=== PATIENT | male | born 1955 | race Caucasian/White ===

== ENCOUNTER 2019-10-28 00:51 | Day surgery (SDC) | payer BC, SELFPAY ==
[2019-10-23 13:28] VITALS: BMI 25.0
--- NOTE | 2019-10-28 10:42 | WPDANESEPPF ---
Anes - Initial Pre Proc Eval Procedure: Operation Date: 10/28/19 12:00 Proposed Procedures p Colonoscopy - Edenilson Abbott MD Date/Time: 10/28/19 10:42 Surgeon: Edenilson Abbott MD Pre Op Diagnosis: Incontinence Patient Data Age: 64 Gender: M Height: 5 ft 10 in Weight: 79 kg Allergies Allergy/AdvReac Type Severity Reaction Status Date / Time No Known Allergies Allergy Mild Verified 10/23/19 13:25 Home Medications Medication Instructions Recorded Confirmed Type omeprazole 20 mg capsule,delayed 20 mg PO DAILY #90 cap 09/09/19 10/23/19 Rx release hydrochlorothiazide 12.5 mg PO QAM 10/23/19 10/23/19 History quinapril 20 mg PO QAM 10/23/19 10/23/19 History sertraline [Zoloft] 50 mg PO QAM 10/23/19 10/23/19 History simvastatin 20 mg PO QAM 10/23/19 10/23/19 History solifenacin [Vesicare] 5 mg PO QAM 10/23/19 10/23/19 History Patient hx anesthesia problems: none Family hx anesthesia problems: none PMFSH Family History Family History Mother Family history of osteoarthritis Family history of alcoholism Dementia Father Family history of alcoholism Social History Social History Smoking packs per day: 1 Smoking cigarettes per day: 20.0 Smoking status: Current every day smoker Second hand tobacco smoke exposure: Yes Alcohol intake: current Substance use type: marijuana Anes - Eval Final PreProcedure Day of Procedure 10/28/19 10:42 Patient weight: normal Heart: regular rate and rhythm Lungs: decreased breath sounds Airway: Mallampati scale class II Neurological: alert and oriented Last oral intake: >/= 8 hours ASA classification: III Emergent: no Anesthetic plan: proceed Anesthesia type and monitoring: general GIVS and standard monitoring Informed Consent: The patient's anesthetic plan and its attendant risks and benefits were discussed with the patient/family/POA. Questions were solicited and answers provided to the satisfaction of the patient/family/POA.
[2019-10-28 10:51] VITALS: BP 131/87; PULSE 74; RESP 18; TEMP 36.6; O2SAT 99
[2019-10-28] MEDS: LACTATED RINGERS 1,000 ML 150 ML IV CONT (10:55)
--- NOTE | 2019-10-28 11:46 | PM.HPGS ---
History of Present Illness History of Present Illness Consent: Risks, benefits, and alternatives have been discussed and questions answered. Patient agrees to proceed with procedure. Chief complaint: Incontinence Narrative: Tommy Zhao is a 64 year old male With a change in bowel habits. He has been experiencing incontinence with seepage of stool. His bowel movements are regular. Usually only 1 per day. He drinks several cups of PMFSH Family History Family History Mother Family history of osteoarthritis Family history of alcoholism Dementia Father Family history of alcoholism Social History Social History Smoking packs per day: 1 Smoking cigarettes per day: 20.0 Smoking status: Current every day smoker Second hand tobacco smoke exposure: Yes Alcohol intake: current Substance use type: marijuana Meds Home Medications and Allergies Home Medications Medication Instructions Recorded Confirmed Type omeprazole 20 mg capsule,delayed 20 mg PO DAILY #90 cap 09/09/19 10/28/19 Rx release hydrochlorothiazide 12.5 mg PO QAM 10/23/19 10/28/19 History quinapril 20 mg PO QAM 10/23/19 10/28/19 History sertraline [Zoloft] 50 mg PO QAM 10/23/19 10/28/19 History simvastatin 20 mg PO QAM 10/23/19 10/28/19 History solifenacin [Vesicare] 5 mg PO QAM 10/23/19 10/28/19 History Allergies Allergy/AdvReac Type Severity Reaction Status Date / Time No Known Allergies Allergy Mild Verified 10/28/19 10:49 Vital Signs Vital Signs - 24 hr 10/28/19 10:51 Temperature 36.6 C Pulse Rate 74 Respiratory Rate 18 Blood Pressure 131/87 Pulse Oximetry 99 Exam Resp: Auscultation: clear to auscultation bilaterally Cardio: Rate: regular rate Rhythm: regular rhythm GI: GI Palp: Yes Soft to palpation and No Tenderness to palpation present (GI) Assessment and Plan Assessment and plan (1) Change in bowel habits: Code(s): R19.4 - Change in bowel habit Status: Acute Assessment and Plan: Colonoscopy with possible biopsy or polypectomy or cautery or injection of substances.
[2019-10-28] MEDS: SIMETHICONE ORAL SUSPENSION 20 MG/0.3 ML 30 ML BOTTLE 0.6 ML IRRIGATION (12:21)
[2019-10-28 12:25] VITALS: BP 133/89; PULSE 91; RESP 15; O2SAT 96
[2019-10-28 12:35] VITALS: BP 110/79; PULSE 86; RESP 20; O2SAT 92
[2019-10-28 12:45] VITALS: BP 151/92; PULSE 65; RESP 16; O2SAT 98
== END 2019-10-28 13:10 | disposition home or self-care (01) ==
PROVIDERS: PCP Physician Assistant; Visit Provider Internal Medicine Gastroenterology
PROC: 0DJD8ZZ Inspection of Lower Intestinal Tract, Via Natural or Artificial Opening Endoscopic (ICD-10-PCS; CPT 45378; principal; 2019-10-28 12:00)
DX: R19.4 Change in bowel habit (principal); K63.5 Polyp of colon; K64.8 Other hemorrhoids; F17.210 Nicotine dependence, cigarettes, uncomplicated; F12.90 Cannabis use, unspecified, uncomplicated
CPT/HCPCS: 45380; 88305; J2704; J7120

== ENCOUNTER 2022-01-19 17:50 | Emergency (ER) | payer OTHER, SELFPAY ==
[2022-01-19] VITALS (13 sets, daily range): BP systolic 120–147; BP diastolic 78–87; PULSE 66–82; RESP 15–23; TEMP 36.6; O2SAT 95–100
--- NOTE | ~2022-01-19 | XR_ITS ---
XR chest 2V DATE: 01/19/2022 18:13 INDICATION: Chest pain TECHNIQUE: PA and lateral views COMPARISON: 11/29/2011 PA and lateral chest FINDINGS: Normal heart size. No hilar or mediastinal enlargement. Minimal atelectasis at the lung bas es. No pulmonary infiltrate or consolidation, pleural effusion or pulmonary vascular congestion or pn eumothorax is noted otherwise. IMPRESSION: Minimal atelectasis at lung bases Reviewed, dictated and finalized at location A.
--- NOTE | 2022-01-19 17:51 | ECG_ITS ---
Measurements Intervals Leivasy Rate: 84 P: 74 MD: 182 QRS: -16 QRSD: 83 T: 44 QT: 349 QTc: 413 Interpretive Statements SINUS RHYTHM NONSPECIFIC T-WAVE ABNORMALITY NO PREVIOUS ECG AVAILABLE FOR COMPARISON Electronically Signed On 01-19-2022 20:41:09 CDT by Beti Kim M.D.
[2022-01-19 18:12] LABS: Basophils Absolute Auto 0.1 K/mm3 (0.0-0.1); Basophils Percent Auto 0.5 % (0.2-1.2); Eosinophils Absolute Auto 0.2 K/mm3 (0-0.3); Eosinophils Percent Auto 1.3 % (0-4.4); Hematocrit 42.8 % (42.0-52.0); Hemoglobin 15.2 g/dL (14.0-18.0); Immature Granulocyte Absolute 0.06 K/mm3 (0.00-0.031); Immature Granulocyte Percent A 0.5 % (0-0.5); Lymphocytes Absolute Auto 3.71 K/mm3 (0.9-3.2); Lymphocytes Percent Auto 29.6 % (18.3-44.2); Mean Corpuscular HGB Conc 35.5 g/dl (32-36); Mean Corpuscular Hemoglobin 33.7 pg (26-34); Mean Corpuscular Volume 94.9 fl (80-100); Mean Platelet Volume 8.6 fl (7.4-10.4); Monocytes Percent Auto 8.3 % (2.6-8.5); Neutrophils Absolute Auto 7.5 K/mm3 (1.3-6.7); Neutrophils Percent Auto 59.8 % (45.5-73.1); Platelet Count Result 274 k/mm3 (150-375); Red Blood Count 4.51 M/mm3 (4.6-6.20); Red Cell Distribution Width 13.1 % (11.5-14.5); White Blood Count 12.5 K/mm3 (4.5-10.0)
[2022-01-19 18:23] LABS: Alanine Aminotransferase 24 U/L (6-50); Albumin Level 4.4 g/dL (3.5-5.1); Alkaline Phosphatase 87 U/L (38-126); Anion Gap 7 mmol/L (8-16); Aspartate Amino Transferase 29 U/L (17-59); Bilirubin,Total 0.9 mg/dL (0.2-1.3); Blood Urea Nitrogen 20 mg/dL (9-20); Calcium 9.3 mg/dL (8.4-10.2); Carbon Dioxide 25 mmol/L (22-30); Chloride 104 mmol/L (98-107); Estimated CRCL calculation 66 ml/min; Estimated Glomerular Filt Rate > 60; Glucose 99 mg/dL (65-110); Lipase 224 U/L (23-300); Potassium 3.3 mmol/L (3.4-5.0); Sodium 136 mmol/L (137-145)
[2022-01-19 18:27] LABS: INR 1.1; Prothrombin Time 13.7 Seconds (11.1-14.7)
[2022-01-19 18:28] LABS: Partial Thromboplastin Time 34.1 SECONDS (22.3-36.8)
[2022-01-19 18:34] LABS: Troponin I < 0.012 ng/mL (0.000-0.034)
--- NOTE | 2022-01-19 20:10 | ED.CHESTPAIN ---
HPI - Chest Pain General Chief Complaint: Chest Pain Stated Complaint: chest pain since sunday Time Seen by Provider: 01/19/22 20:01 Source: patient History of Present Illness HPI narrative: Patient presents with chest pain. Patient notes that symptoms for approximately 1 week described as a pressure sensation on his chest worse with physical activity improves with rest. Today it was associated with dizziness while he was outside cutting the grass he was concerned so he came to the ER for evaluation. Does report shortness of breath with exertion. Denies any nausea or diaphoresis. Denies any fevers chills or coughing. Related Data Allergies Allergy/AdvReac Type Severity Reaction Status Date / Time No Known Allergies Allergy Mild Verified 01/19/22 19:59 Review of Systems Review of Systems: CONSTITUTIONAL: Denies fever, chills, or sweats. EYES: Denies visual changes, redness, or discharge. ENT: Denies rhinorrhea, congestion, sore throat, or otalgia. CARDIOVASCULAR: Reports chest pain RESPIRATORY: Reports shortness of breath GASTROINTESTINAL: Denies abdominal pain, nausea, vomiting, or diarrhea. GENITOURINARY: Denies dysuria or hematuria. SKIN: Denies rash or itching. MUSCULOSKELETAL: Denies back pain, joint pain, or myalgia. NEUROLOGIC: Denies headache, numbness, dizziness, or weakness. PSYCHIATRIC: Denies anxiety or depression. All systems reviewed & are unremarkable except as noted in HPI and below PMFSH Past Medical History Medical History (Updated 01/20/22 @ 00:00 by Patricia Reyes) Arthritis Hx of appendicitis Family History Family History Mother Family history of osteoarthritis Family history of alcoholism Dementia Father Family history of alcoholism Social History Social History Smoking packs per day: 1 Smoking cigarettes per day: 20.0 Smoking status: Current every day smoker Second hand tobacco smoke exposure: Yes Alcohol intake: former Substance use: former Substance use type: marijuana Exam Narrative: GENERAL: Well-appearing, well-nourished, and in no acute distress. HEAD: Normocephalic, atraumatic. EYES: PERRLA and EOMI. ENT: Nares clear, no rhinorrhea or epistaxis. Mucous membranes moist. NECK: Supple. No masses. No JVD CHEST: Clear to auscultation. No respiratory distress. No wheezes rales or rhonchi HEART: Regular rate and rhythm. No murmur heard. Normal peripheral pulses. ABDOMEN: Soft, nontender, nondistended, normal active bowel sounds. EXTREMITIES: Normal range of motion. No edema. SKIN: Warm, dry, no rash. NEURO: No focal deficits. Alert and oriented x3. PSYCH: Normal mood and affect. Course Reevaluation(s) Reevaluation #1: Patient reports complete resolution of his symptoms after a GI cocktail. Results reviewed with the patient discussed inpatient versus outpatient evaluation of his symptoms. Patient prefers to follow-up with a demand inspector as an outpatient. Given the duration of his symptoms negative troponin nuclear resolution of symptoms with his GI cocktail this is reasonable course of option. Patient encouraged to return to the ER if he changes mind regarding inpatient evaluation discuss his comorbidities and smoking increasing his risk for cardiac disease. Date: 01/19/22 Time: 21:22 Vital Signs Vital signs: Vital Signs Temperature 36.6 C 01/19/22 18:03 Pulse Rate 82 01/19/22 18:03 Respiratory Rate 16 01/19/22 18:03 Blood Pressure 140/87 01/19/22 18:03 Pulse Oximetry 100 01/19/22 18:03 Oxygen Delivery Room Air 01/19/22 18:03 Temperature 36.6 C 01/19/22 18:03 Pulse Rate 66 01/19/22 21:45 Respiratory Rate 23 H 01/19/22 21:45 Blood Pressure 125/86 01/19/22 21:45 Pulse Oximetry 97 01/19/22 21:45 Oxygen Delivery Room Air 01/19/22 18:03 MDM - Chest Pain MDM Narrative Medical decisi
[2022-01-19] MEDS: SODIUM CHLORIDE 0.9% IV 500 ML 999 ML IV CONT (21:20)
[2022-01-19] MEDS: LIDOCAINE HCL 2% VISC SOLN 15 ML UDC 20 ML PO (21:21)
[2022-01-19] MEDS: MAG HYDROX/AL HYDROX/SIMETH 30 ML UDC PO (21:21)
[2022-01-19 21:42] LABS: Troponin I < 0.012 ng/mL (0.000-0.034)
== END 2022-01-19 22:14 | disposition home or self-care (01) ==
PROVIDERS: Emergency Medicine; Emergency Provider Emergency Medicine; PCP Physician Assistant
DX: R07.9 Chest pain, unspecified (principal); F17.210 Nicotine dependence, cigarettes, uncomplicated
CPT/HCPCS: 36415; 71046; 80053; 83690; 84484; 85025; 85610; 85730; 93005; 99284; A9270; J7040

== ENCOUNTER 2022-07-13 09:38 | Outpatient (CLI) | payer MEDICARE, SELFPAY ==
--- NOTE | ~2022-07-13 | XR_ITS ---
XR chest 2V DATE: 07/13/2022 09:51 INDICATION: Cough since January TECHNIQUE: PA and lateral views COMPARISON: 01/19/2022 PA and lateral chest FINDINGS: Normal heart size. No hilar or mediastinal enlargement. Aortic arch calcification. No pulmonary infiltrate or consolidation, pleural effusion or pulmonary vascular congestion or pneumo thorax is detected. There is mild dextroscoliosis and mild degenerative spurring of the thoracic spine. There is osteopen ia. IMPRESSION: No active cardiopulmonary disease Reviewed, dictated and finalized at location B. 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
== END 2022-07-13 09:39 | disposition home or self-care (01) ==
PROVIDERS: PCP Physician Assistant; Visit Provider Physician Assistant
DX: R05.9 Cough, unspecified (principal)
CPT/HCPCS: 71046

== ENCOUNTER 2022-09-12 18:32 | Observation (INO) | payer MEDICARE, SELFPAY ==
--- NOTE | ~2022-09-12 | XR_ITS ---
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 RESULT: Lines, tubes, and devices: None. Lungs and pleura: Linear bibasilar scar/atelectasis. No focal consolidation, pneumothorax, or effusi on. Cardiomediastinal silhouette: Stable. Other: No acute osseous or upper abdominal finding. IMPRESSION: No acute cardiopulmonary process. Reviewed, dictated and finalized at location K. ING CONTRACTOR
--- NOTE | ~2022-09-12 | CT_ITS ---
EXAMINATION: CT abdomen pelvis w con DATE: 09/12/2022 21:01 INDICATION: Left sided abdominal pain TECHNIQUE: Computed tomography (CT) of the abdomen and pelvis was performed with 100 mL Omnipaque-350 intravenous contrast. Automated exposure control and iterative reconstruction technique were employe d. The dose-length product was 495.27 mGy-cm. COMPARISON: None. FINDINGS: Lower thorax: Coronary artery and aortic valve calcification. Bibasilar scar/atelectasis. Small hiata l hernia. Calcified granulomas. Liver: Multiple hepatic cysts. Biliary/Gallbladder: Gallbladder is normal. No bile duct dilation. Pancreas: Prominent mid and distal pancreatic duct. Inflammatory change and fluid surrounding the solano creatic body and tail. 7 mm hypodensity in the pancreatic body. Spleen: Normal. Adrenals:No mass. Kidneys: No mass, stone, or hydronephrosis. GI tract: No small or large bowel dilation. Normal appendix. Mesentery/Peritoneum: No ascites, mass, or free air. Retroperitoneum: No mass. Atherosclerotic abdominal aortic and/or arterial calcifications. Mild bilat eral common iliac aneurysms. Pelvis: Prostatomegaly, otherwise the pelvic organs are within normal limits. Soft Tissues: Uncomplicated fat-containing right inguinal hernia, soft tissues tissues and body wall otherwise unremarkable. Bones: No acute osseous finding. IMPRESSION: 1. Inflammatory change and edema at the pancreatic body/tail, concerning for pancreatitis. 2. 7 mm hypodense or hypoenhancing lesion in the pancreatic body which may represent edema or necrosi s related to pancreatitis, but a pancreatic mass is not excluded. Recommend MRI of the pancreas after the resolution of acute symptoms. Reviewed, dictated and finalized at location K. KBROKING DEALER IMPRESSION: 1. Inflammatory change and edema at the pancreatic body/tail, concerning for pa ncreatitis. 2. 7 mm hypodense or hypoenhancing lesion in the pancreatic body which may repr esent edema or necrosis related to pancreatitis, but a pancreatic mass is not e xcluded. Recommend MRI of the pancreas after the resolution of acute symptoms.
--- NOTE | ~2022-09-12 | MR_ITS ---
EXAMINATION: MR MRCP wo/w con/w 3D wo ind DATE: 09/13/2022 12:45 INDICATION: Pancreatic lesion. Abdominal pain. TECHNIQUE: Magnetic resonance imaging (MRI) of the abdomen was performed without and with 17 mL Multi Pete intravenous contrast. Sequences included coronal T2-weighted FS FSE, coronal T2-weighted FSE, a xial T1-weighted LAVA, coronal FS FIESTA, axial dual-echo T1-weighted SPGR, coronal lava-FLEX, sagitt al T2-weighted FSE, axial T2-weighted FSE, and axial DWI. Thick-slab T2-weighted FSE images were obta ined for magnetic resonance cholangiopancreatography (MRCP). Maximum intensity projection 3-D reconst ructions of the volumetric data were created by the technologist. Postcontrast sequences included cor onal LAVA-flex and time course of axial T1-weighted LAVA. COMPARISON: CT abdomen and pelvis 09/12/2022 FINDINGS: ABDOMEN MRI: There are cysts in the liver measuring up to 2.9 cm. The gallbladder and spleen are norm al. There is fat stranding adjacent to the tail of the pancreas with edema of the tail of the pancrea s, consistent with acute interstitial pancreatitis. There are multiple cystic lesions in the pancreas measuring up to 7 mm, likely acute peripancreatic fluid collections. The adrenal glands and kidneys are normal. There are no dilated loops of bowel. ABDOMEN MRCP: The common duct is normal and measures 2 mm. No choledocholithiasis. IMPRESSION: 1. Acute interstitial pancreatitis with small acute peripancreatic fluid collections. Reviewed, dictated and finalized at location A. TOR IN CHARGE IMPRESSION: 1. Acute interstitial pancreatitis with small acute peripancreatic fluid collec tions.
[2022-09-12 18:42] VITALS: BP 102/75; PULSE 95; RESP 16; TEMP 36.4; O2SAT 98
--- NOTE | 2022-09-12 20:10 | ECG_ITS ---
Measurements Intervals Stark Rate: 73 P: 70 IA: 201 QRS: 10 QRSD: 75 T: 24 QT: 362 QTc: 400 Interpretive Statements SINUS RHYTHM ATRIAL PREMATURE COMPLEX NONSPECIFIC T-WAVE ABNORMALITY- ANTERIOR LEADS BASELINE ARTIFACT- I, II, III, AVR, AVL, AVF, V1-V6 BORDERLINE ECG COMPARED TO ECG 01/19/2022 17:55:51 NO SIGNIFICANT CHANGES Electronically Signed On 09-12-2022 21:26:13 HANDS AND DIAL INSPECTOR by Kushal Puentes D.O.
[2022-09-12] MEDS: SODIUM CHLORIDE 0.9% IV 1,000 ML 999 ML IV CONT ×2 (20:17→20:33)
[2022-09-12 20:25] LABS: Basophils Absolute Auto 0.1 K/mm3 (0.0-0.1); Basophils Percent Auto 0.5 % (0.2-1.2); Eosinophils Absolute Auto 0.3 K/mm3 (0-0.3); Eosinophils Percent Auto 2.6 % (0-4.4); Hematocrit 44.6 % (42.0-52.0); Hemoglobin 15.6 g/dL (14.0-18.0); Immature Granulocyte Absolute 0.04 K/mm3 (0.00-0.031); Immature Granulocyte Percent A 0.3 % (0-0.5); Lymphocytes Absolute Auto 2.78 K/mm3 (0.9-3.2); Lymphocytes Percent Auto 22.5 % (18.3-44.2); Mean Corpuscular Hemoglobin 34.4 pg (26-34); Mean Corpuscular Volume 98.2 fl (80-100); Mean Platelet Volume 8.8 fl (7.4-10.4); Monocytes Percent Auto 8.2 % (2.6-8.5); Neutrophils Absolute Auto 8.1 K/mm3 (1.3-6.7); Neutrophils Percent Auto 65.9 % (45.5-73.1); Platelet Count Result 277 k/mm3 (150-375); Red Blood Count 4.54 M/mm3 (4.6-6.20); White Blood Count 12.3 K/mm3 (4.5-10.0)
[2022-09-12 20:33] LABS: Lactic Acid Reflex 1.3 mmol/L (0.7-2.0)
[2022-09-12] MEDS: ONDANSETRON INJ 4 MG/2 ML VIAL IV PUSH (20:34)
[2022-09-12] MEDS: MORPHINE SULFATE (*CRX) 4 MG/ML INJ IV PUSH ×2 (20:34→22:37)
--- NOTE | 2022-09-12 20:34 | ED.ABDPAIN ---
HPI - Abdominal Pain General Chief Complaint: Abdominal Pain Stated Complaint: abd pain Time Seen by Provider: 09/12/22 19:48 Source: patient Mode of arrival: ambulatory Limitations: no limitations History of Present Illness HPI narrative: The patient is a 67-year-old male with a history of hypertension, hyperlipidemia presenting to the emergency department for evaluation of abdominal pain. Patient reports abdominal pain worsening over the past 5 days. Described as constant in nature in the left upper quadrant, patient states that he can feel a hard mass in that area. Patient reports no radiation of the pain to the back and into the chest although he does report intermittent chest pain over the past several weeks for which he was previously seen in the emergency department and then referred to cardiology with ultimately a negative work-up. Patient denies fever, chills, nausea or vomiting. Initially he attributed the pain to constipation and took 2 stool softeners with improvement in the bowel movements and no dark or tarry stool. Patient denies any bright red blood per rectum. He denies any flank pain, dysuria or hematuria. Patient denies any radiation of the left upper quadrant pain into the shoulder, neck, jaw. No associated shortness of breath. Related Data Home Medications Medication Instructions Recorded Confirmed omega 5-bni-gwt-fish oil 100 cap PO 07/04/22 07/14/22 mg-160 mg-1,000 mg capsule (Fish Oil) Allergies Allergy/AdvReac Type Severity Reaction Status Date / Time No Known Allergies Allergy Mild Verified 09/12/22 15:29 Review of Systems Review of Systems: CONSTITUTIONAL: Denies fever, chills, or sweats. EYES: Denies visual changes, redness, or discharge. ENT: Denies rhinorrhea, congestion, sore throat, or otalgia. CARDIOVASCULAR: Reports intermittent chest pain over the past several weeks but denies current active chest pain RESPIRATORY: Denies cough or dyspnea. GASTROINTESTINAL: Reports left upper quadrant abdominal pain, denies nausea, vomiting or diarrhea, reports earlier constipation is now resolved GENITOURINARY: Denies dysuria or hematuria. SKIN: Denies rash or itching. MUSCULOSKELETAL: Denies back pain, joint pain, or myalgia. NEUROLOGIC: Denies headache, numbness, or weakness. [facility] Past Medical History Medical History Arthritis Hx of appendicitis Hyperlipidemia Hypertension Family History Family History Mother Family history of osteoarthritis Family history of alcoholism Dementia Father Family history of alcoholism Social History Social History Smoking packs per day: 1 Smoking cigarettes per day: 20.0 Smoking status: Current every day smoker Second hand tobacco smoke exposure: Yes Alcohol intake: former Substance use: former Substance use type: marijuana Lack of Transportation: No Lack of Food: Never True Current Housing: I Have Housing Concerned About Future Housing: No Difficulty Paying Gas/Electric Bills: No Difficulty Paying for Meds: No Currently Unemployed: No Education: High School Diploma/GED Difficulty w/ Childcare or Family Care: No Exam Narrative: GENERAL: Awake, alert, conversant HEAD: Normocephalic, atraumatic. EYES: PERRLA and EOMI. ENT: Nares clear, no rhinorrhea or epistaxis. Mucous membranes moist. NECK: Supple. CHEST: No respiratory distress, breathing even and non labored HEART: Regular rate, sinus rhythm ABDOMEN:Non distended, mild epigastric tenderness, tender in the left upper quadrant, potential small hernia in that site versus lipoma, no guarding, rebound or rigidity. No flank tenderness bilaterally. No focal right upper quadrant tenderness, periumbilical pain, left lower or right lower quadrant tenderness EXTREMITIES: Normal range of motion
[2022-09-12 20:36] LABS: Alanine Aminotransferase 23 U/L (6-50); Albumin Level 4.4 g/dL (3.5-5.1); Alkaline Phosphatase 101 U/L (38-126); Anion Gap 7 mmol/L (8-16); Aspartate Amino Transferase 24 U/L (17-59); Bilirubin,Total 0.8 mg/dL (0.2-1.3); Blood Urea Nitrogen 18 mg/dL (9-20); Calcium 9.3 mg/dL (8.4-10.2); Carbon Dioxide 24 mmol/L (22-30); Chloride 101 mmol/L (98-107); Estimated CRCL calculation 83 ml/min; Estimated Glomerular Filt Rate > 60; Glucose 142 mg/dL (65-110); Lipase 429 U/L (23-300); Potassium 3.2 mmol/L (3.4-5.0); Sodium 132 mmol/L (137-145)
[2022-09-12 20:43] VITALS: BP 101/71; PULSE 81; RESP 18; O2SAT 97
[2022-09-12 20:46] LABS: Troponin I < 0.012 ng/mL (0.000-0.034)
--- NOTE | 2022-09-12 21:39 | PM.IMHP ---
H&P: HPI History of Present Illness Date/Time: 09/12/22 21:39 Chief Complaint: Abdominal pain Narrative: This is a 67-year-old male with past medical history significant for hypertension, GERD, dyslipidemia, benign prostatic hyperplasia, tobacco dependence. Patient presents to the emergency room due to abdominal pain for the last 5 days or so it is constant it is nagging it is achy nonradiating it is localized to the epigastric area denies any nausea, vomiting, chills, fevers, no weight loss, patient denies use of alcohol, no hematemesis, no bright red blood per rectum, no melena. His usually able to tolerate all his meals without any problems. Preliminary workup was significant for CT of abdomen and pelvis was reported as: IMPRESSION: 1. Inflammatory change and edema at the pancreatic body/tail, concerning for pancreatitis. 2. 7 mm hypodense or hypoenhancing lesion in the pancreatic body which may represent edema or necrosis related to pancreatitis, but a pancreatic mass is not excluded. Recommend MRI of the pancreas after the resolution of acute symptoms. Review of Systems Review of Systems: Epigastric abdominal pain Constitutional: Constitutional: Denies chills, Denies fatigue, Denies fever(s), Denies lethargy, Denies malaise, Denies night sweats, Denies poor appetite, Denies weakness and Denies weight loss Eyes: Eyes: Denies change in vision ENT: Denies dysphagia and Denies odynophagia Cardiovascular: Cardiovascular: Denies chest pain, Denies lightheadedness, Denies palpitations, Denies dyspnea on exertion and Denies orthopnea Respiratory: Respiratory: Denies chest congestion, Denies cough, Denies excessive phlegm production, Denies pain on inspiration and Denies dyspnea on exertion Gastrointestinal: Gastrointestinal: Reports abdominal pain, Denies melena, Denies hematochezia, Denies coffee ground emesis, Denies dyspepsia, Denies heartburn, Denies diarrhea, Denies nausea and Denies vomiting Genitourinary: Genitourinary: Denies dysuria Musculoskeletal: Musculoskeletal: Denies myalgias, Denies joint swelling and Denies limited range of motion Integumentary/Breasts: Skin/Breast: Denies rash Neurologic: Denies vertigo, Denies dizziness, Denies focal weakness and Denies Sensory deficit (Neuro) Psychiatric: Psychiatric: Reports no additional psychiatric complaints and Reports as per HPI Endocrine: Endocrine: Denies cold intolerance, Denies flushing, Denies heat intolerance, Denies polyphagia, Denies polydipsia and Denies palpitations Hematologic/Lymphatic: Hematologic/Lymphatic: Reports no additional hematologic/lymphatic complaints and Reports as per HPI Allergic/Immunologic: Allergic/Immunologic: Reports no additional allergic/immunologic complaints and Reports as per HPI PMFSH Past Medical History Medical History Arthritis Hx of appendicitis Hyperlipidemia Hypertension Family History Family History Mother Family history of osteoarthritis Family history of alcoholism Dementia Father Family history of alcoholism Social History Social History Smoking packs per day: 1 Smoking cigarettes per day: 20.0 Years smoked: 40 Smoking pack-years: 40.00 Smoking status: Current every day smoker Tobacco type: cigarettes Second hand tobacco smoke exposure: Yes Alcohol intake: never Substance use: current Substance use type: marijuana Lack of Transportation: No Lack of Food: Never True Current Housing: I Have Housing Concerned About Future Housing: No Difficulty Paying Gas/Electric Bills: No Difficulty Paying for Meds: No Currently Unemployed: No Education: Associate Degree Difficulty w/ Childcare or Family Care: No Spiritual care concerns: No Meds Home Medications and Allergies Home Medications Medi
[2022-09-12] MEDS: POTASSIUM CHLORIDE 20 MEQ PACKET (FOR LIQUID) PO (22:37)
[2022-09-12 23:19] LABS: Influenza A QL RT-PCR Negative (Negative); Influenza B QL RT-PCR Negative (Negative); RSV RNA, RT-PCR Negative (Negative); SARS-CoV-2 RNA PCR Negative
[2022-09-12 23:56] VITALS: BP 128/76; PULSE 56; RESP 16; TEMP 36.5; O2SAT 98
[2022-09-13] MEDS: SODIUM CHLORIDE 0.9% IV 1,000 ML 125 ML IV CONT ×2 (00:13→08:30)
[2022-09-13] MEDS: MORPHINE SULFATE (*CRX) 4 MG/ML INJ IV PUSH ×6 (00:36→22:22)
[2022-09-13 05:40] VITALS: BP 97/56; PULSE 67; RESP 16; TEMP 36.3; O2SAT 94
[2022-09-13 06:09] LABS: Basophils Absolute Auto 0.1 K/mm3 (0.0-0.1); Basophils Percent Auto 0.5 % (0.2-1.2); Eosinophils Absolute Auto 0.4 K/mm3 (0-0.3); Eosinophils Percent Auto 3.8 % (0-4.4); Hematocrit 36.9 % (42.0-52.0); Hemoglobin 12.6 g/dL (14.0-18.0); Immature Granulocyte Absolute 0.03 K/mm3 (0.00-0.031); Immature Granulocyte Percent A 0.3 % (0-0.5); Lymphocytes Absolute Auto 3.25 K/mm3 (0.9-3.2); Lymphocytes Percent Auto 35.7 % (18.3-44.2); Mean Corpuscular HGB Conc 34.1 g/dl (32-36); Mean Corpuscular Hemoglobin 33.7 pg (26-34); Mean Corpuscular Volume 98.7 fl (80-100); Mean Platelet Volume 9.1 fl (7.4-10.4); Monocytes Absolute Auto 1.1 K/mm3 (0.1-0.6); Monocytes Percent Auto 11.9 % (2.6-8.5); Neutrophils Absolute Auto 4.3 K/mm3 (1.3-6.7); Neutrophils Percent Auto 47.8 % (45.5-73.1); Platelet Count Result 254 k/mm3 (150-375); Red Blood Count 3.74 M/mm3 (4.6-6.20); White Blood Count 9.1 K/mm3 (4.5-10.0)
[2022-09-13 06:24] LABS: Alanine Aminotransferase 17 U/L (6-50); Albumin Level 3.2 g/dL (3.5-5.1); Alkaline Phosphatase 76 U/L (38-126); Anion Gap 1 mmol/L (8-16); Aspartate Amino Transferase 17 U/L (17-59); Bilirubin,Total 0.6 mg/dL (0.2-1.3); Blood Urea Nitrogen 13 mg/dL (9-20); Calcium 7.8 mg/dL (8.4-10.2); Carbon Dioxide 26 mmol/L (22-30); Chloride 107 mmol/L (98-107); Estimated CRCL calculation 94 ml/min; Estimated Glomerular Filt Rate > 60; Glucose 97 mg/dL (65-110); Lipase 754 U/L (23-300); Potassium 3.5 mmol/L (3.4-5.0); Sodium 134 mmol/L (137-145)
[2022-09-13] MEDS: FAMOTIDINE 20 MG/2 ML VIAL IV PUSH ×2 (10:25→19:38)
--- NOTE | 2022-09-13 13:41 | WPDGICN ---
Assessment and Plan Assessment and plan (1) Acute pancreatitis: Code(s): K85.90 - Acute pancreatitis without necrosis or infection, unspecified Status: Acute Assessment and Plan: denies alcohol, GB was normal noted lesion in pancreas and mri is pending, based on finding may need referral for EUS pancreas (2) Abdominal pain: Code(s): R10.9 - Unspecified abdominal pain Status: Acute Assessment and Plan: still with pain normal lft pain management (3) Mass of pancreas: Code(s): K86.89 - Other specified diseases of pancreas Status: Acute Assessment and Plan: incidental finding, pending mrcp (4) Hypertension: Qualifiers: Hypertension type: essential hypertension Qualified Code(s): I10 - Essential (primary) hypertension Code(s): I10 - Essential (primary) hypertension Status: Acute GI Consult Note Consult date/time: 09/13/22 13:41 Reason for consult: pancreatitis HPI: Tommy Zhao is a 67 year old male with history significant for hypertension, GERD, dyslipidemia, benign prostatic hyperplasia, tobacco dependence who has been having intermittent chest pain since January, actually he was evaluated by PCP and cardiology. He came here with 5 days of worsening upper abdominal pain with radiation to chest mostly in epigastric, denies nausea, vomiting, chills, fevers, no weight loss. He does not use alcohol. Because pain got severe he came to ER. CT scan showed?Inflammatory change and edema at the pancreatic body/tail, concerning for pancreatitis.. 7 mm hypodense or hypoenhancing lesion in the pancreatic body which may represent edema or necrosis related to pancreatitis, but a pancreatic mass is not excluded. Recommend MRI of the pancreas after the resolution of acute symptoms, GB was normal.. He had normal liver enzymes, lipase 400's. Denies previous pancreatitis, Review of Systems Constitutional: Constitutional: Denies headache(s) and Denies weakness Eyes: Eyes: Denies blurry vision ENT: Reports Normal hearing present, Denies headache(s) and Denies neck pain Cardiovascular: Cardiovascular: Reports chest pain and Denies dyspnea Respiratory: Respiratory: Denies dyspnea Gastrointestinal: Gastrointestinal: Reports abdominal pain Genitourinary: Genitourinary: Denies dysuria Musculoskeletal: Musculoskeletal: Denies neck pain Integumentary/Breasts: Skin/Breast: Denies dry skin Neurologic: Reports Normal hearing present, Denies headache(s) and Denies weakness Psychiatric: Psychiatric: Denies anxiety Endocrine: Endocrine: Denies change in body appearance Hematologic/Lymphatic: Hematologic/Lymphatic: Denies easy bleeding Allergic/Immunologic: Allergic/Immunologic: Denies urticaria PMFSH Past Medical History Medical History (Updated 09/13/22 @ 13:45 by Margarito Sharpe MD) Arthritis Hx of appendicitis Hyperlipidemia Hypertension Family History Family History Mother Family history of osteoarthritis Family history of alcoholism Dementia Father Family history of alcoholism Social History Social History Smoking packs per day: 1 Smoking cigarettes per day: 20.0 Years smoked: 40 Smoking pack-years: 40.00 Smoking status: Current every day smoker Tobacco type: cigarettes Second hand tobacco smoke exposure: Yes Alcohol intake: never Substance use: current Substance use type: marijuana Lack of Transportation: No Lack of Food: Never True Current Housing: I Have Housing Concerned About Future Housing: No Difficulty Paying Gas/Electric Bills: No Difficulty Paying for Meds: No Currently Unemployed: No Education: Associate Degree Difficulty w/ Childcare or Family Care: No Spiritual care concerns: No Meds Home Medications and Allergies Home Medications Medica
--- NOTE | 2022-09-13 13:43 | PM.IMPN ---
Progress Note: A&P Assessment and Plan (1) Acute pancreatitis: Code(s): K85.90 - Acute pancreatitis without necrosis or infection, unspecified Status: Acute Assessment and Plan: Patient presented with epigastric pain. Lipase on presentation 429. CT of the abdomen/pelvis revealed inflammatory change and edema of the pancreatic body/ tail consistent with pancreatitis. MRCP completed this afternoon, awaiting results appreciate GI consultation continue with NPO diet IV fluid rehydration analgesics antiemetics as needed lipase 754 today (2) Mass of pancreas: Code(s): K86.89 - Other specified diseases of pancreas Status: Acute Assessment and Plan: CT of the abdomen/ pelvis on presentation revealed 7 mm hypodense or hypoenhancing lesion of the pancreatic body which may represent edema or necrosis from pancreatitis, however pancreatic mass not excluded MRCP pending appreciate GI recommendations (3) Tobacco use: Code(s): Z72.0 - Tobacco use Status: Acute Assessment and Plan: Patient smokes 1 pack per day nicotine patch available during admission if needed continue to reinforce smoking cessation (4) Atypical chest pain: Code(s): R07.89 - Other chest pain Status: Acute Assessment and Plan: patient with complaints of pleuritic chest pain ongoing for over 6 months patient follows with Cardiology. Lexiscan stress test recommended but was not completed. no acute issues/ changes. 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 he endorses left epigastric pain today. Describes the pain as aching and worsened with deep inspiration. He has been NPO today. He denies nausea, vomiting, fever, or chills. Reports having a watery stool yesterday, however states this occurred after taking 3 Dulcolax tabs. He denies any urinary symptoms. He does endorse pleuritic chest discomfort which has been an ongoing issue since February. States he was evaluated by Cardiology for this and was cleared of any cardiac concerns. He does endorse dizziness upon standing occasionally. Review of Systems Review of Systems: All systems reviewed & are unremarkable except as noted in HPI and below Exam Narrative: General: well-nourished, well-appearing 67-year-old male, sitting up in bed, comfortable, NARD Neuro: awake, alert and oriented x4, speech clear, no focal neuro deficits noted HEENMT: normocephalic, atraumatic, EOMI, sclerae anicteric Respiratory: clear to auscultation bilaterally, nonlabored breathing Cardio: regular rate, regular rhythm with S1-S2 Abdomen: nondistended, normoactive bowel sounds, soft, tender to palpation epigastric region Extremities: no edema, erythema, or tenderness to palpation, DP pulses 2+ bilaterally Skin: no rashes or lesions, warm and dry Psych: appropriate mood and affect, judgment and insight intact Objective Data Vital Signs Vital Signs: Vital Signs - 24 hr 09/12/22 18:42 09/12/22 20:43 09/12/22 23:56 Temperature 97.6 F 97.7 F Pulse Rate 95 81 56 L Respiratory Rate 16 18 16 Blood Pressure 102/75 101/71 128/76 Pulse Oximetry 98 97 98 Oxygen Delivery 09/13/22 00:07 09/13/22 05:40 09/13/22 08:30 Temperature 97.3 F L Pulse Rate 67 Respiratory Rate 16 Blood Pressure 97/56 L Pulse Oximetry 94 Oxygen Delivery Room Air Room Air Intake/Output Intake/Output: Intake & Output 09/10/22 09/11/22 09/12/22 09/13/22 23:59 23:59 23:59 23:59 Intake Total 1999 1000 Balance 1999 1000 Meds/Results Medications: Active Medi
[2022-09-13 14:00] VITALS: BP 115/71; PULSE 16; RESP 16; TEMP 36.3; O2SAT 98
[2022-09-13] MEDS: SODIUM CHLORIDE 0.9% IV 1,000 ML 100 ML IV CONT (19:38)
[2022-09-13 21:48] VITALS: BP 119/60; PULSE 74; RESP 16; TEMP 36.9; O2SAT 94
[2022-09-14] MEDS: MORPHINE SULFATE (*CRX) 4 MG/ML INJ IV PUSH ×2 (01:46→08:02)
[2022-09-14 05:37] VITALS: BP 138/79; PULSE 65; RESP 16; TEMP 36.2; O2SAT 96
[2022-09-14] MEDS: SODIUM CHLORIDE 0.9% IV 1,000 ML 100 ML IV CONT ×2 (05:43→14:01)
[2022-09-14] MEDS: ONDANSETRON INJ 4 MG/2 ML VIAL IV PUSH (05:43)
[2022-09-14 06:14] LABS: Hematocrit 39.7 % (42.0-52.0); Hemoglobin 13.3 g/dL (14.0-18.0); Mean Corpuscular HGB Conc 33.5 g/dl (32-36); Mean Corpuscular Hemoglobin 33.4 pg (26-34); Mean Corpuscular Volume 99.7 fl (80-100); Mean Platelet Volume 9.3 fl (7.4-10.4); Platelet Count Result 271 k/mm3 (150-375); Red Blood Count 3.98 M/mm3 (4.6-6.20); Red Cell Distribution Width 12.7 % (11.5-14.5); White Blood Count 10.5 K/mm3 (4.5-10.0)
[2022-09-14 06:58] LABS: Alanine Aminotransferase 17 U/L (6-50); Albumin Level 3.3 g/dL (3.5-5.1); Alkaline Phosphatase 90 U/L (38-126); Anion Gap 7 mmol/L (8-16); Aspartate Amino Transferase 21 U/L (17-59); Bilirubin,Total 0.8 mg/dL (0.2-1.3); Blood Urea Nitrogen 12 mg/dL (9-20); Calcium 8.4 mg/dL (8.4-10.2); Carbon Dioxide 22 mmol/L (22-30); Chloride 109 mmol/L (98-107); Estimated CRCL calculation 94 ml/min; Estimated Glomerular Filt Rate > 60; Glucose 51 mg/dL (65-110); Lipase 172 U/L (23-300); Potassium 3.6 mmol/L (3.4-5.0); Sodium 138 mmol/L (137-145)
[2022-09-14 08:00] LABS: Glucose Point of Care 51 mg/dl (65-105)
[2022-09-14] MEDS: DEXTROSE 50% 25 GM/50 ML SYRINGE IV PUSH (08:01)
[2022-09-14] MEDS: SERTRALINE HCL 50 MG TABLET PO (08:05)
[2022-09-14] MEDS: FAMOTIDINE 20 MG/2 ML VIAL IV PUSH (08:05)
[2022-09-14] MEDS: TAMSULOSIN HCL 0.4 MG CAPSULE PO (08:06)
[2022-09-14] MEDS: PANTOPRAZOLE 40 MG TABLET PO (08:06)
[2022-09-14] MEDS: SIMVASTATIN 20 MG TABLET PO (08:06)
[2022-09-14] MEDS: OMEGA 3 POLYUNSAT FATTY ACIDS 1 GM CAP PO (08:06)
[2022-09-14] MEDS: lisinopriL 20 MG TABLET 40 MG PO (08:06)
[2022-09-14] MEDS: hydroCHLOROthiazide 25 MG TABLET PO (08:17)
[2022-09-14 08:33] LABS: Glucose Point of Care 117 mg/dl (65-105)
[2022-09-14 12:17] LABS: Glucose Point of Care 97 mg/dl (65-105)
--- NOTE | 2022-09-14 13:30 | PM.IMPN ---
Progress Note: A&P Assessment and Plan (1) Acute pancreatitis: Code(s): K85.90 - Acute pancreatitis without necrosis or infection, unspecified Status: Acute Assessment and Plan: Patient presented with epigastric pain. Lipase on presentation 429. CT of the abdomen/pelvis revealed inflammatory change and edema of the pancreatic body/ tail consistent with pancreatitis. Etiology unclear. Patient denies alcohol use. Gallbladder normal with no evidence of biliary duct dilation. May be related to medications vs idiopathic MRCP revealed acute interstitial pancreatitis with small acute peripancreatic fluid collection appreciate GI consultation advance to clear liquid diet continue with gentle IV fluids until better tolerating diet analgesics and antiemetics as needed lipase 172 today (2) Mass of pancreas: Code(s): K86.89 - Other specified diseases of pancreas Status: Acute Assessment and Plan: CT of the abdomen/ pelvis on presentation revealed 7 mm hypodense or hypoenhancing lesion of the pancreatic body which may represent edema or necrosis from pancreatitis, however pancreatic mass not excluded MRCP completed which revealed multiple cystic lesions of the pancreas measuring up to 7 mm, most likely acute peripancreatic fluid collection Appreciate GI recommendations (3) Tobacco use: Code(s): Z72.0 - Tobacco use Status: Acute Assessment and Plan: Patient smokes 1 pack per day nicotine patch available during admission if needed continue to reinforce smoking cessation (4) Atypical chest pain: Code(s): R07.89 - Other chest pain Status: Acute Assessment and Plan: patient with complaints of pleuritic chest pain ongoing for over 6 months patient follows with Cardiology. Lexiscan stress test recommended but was not completed. no acute issues/ changes. 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 patient was taken off amlodipine by his PCP 1 day prior to presentation given episodes of hypotension continue lisinopril-hydrochlorothiazide. Monitor BP trends closely Subjective Date/time seen: 09/14/22 13:30 Interval history: Date of service: 09/14/2022 Tommy Zhao is a 67-year-old male with a history of hyperlipidemia, hypertension, arthritis, and tobacco use who is seen in follow-up for pancreatitis. He is feeling better today. This morning he had more severe pain but this improved after pain medication. He was able to tolerate clear liquids for breakfast and felt that he did mostly well with this, however he did experience some abdominal fullness and gurgling intermittently since having the liquids. He has not had a bowel movement today. He denies nausea or vomiting. He denies fevers or chills. This morning his blood sugar was low and he did feel symptomatic with this, stating he felt a bit lightheaded. These symptoms have resolved. He has no additional concerns at this time Review of Systems Review of Systems: All systems reviewed & are unremarkable except as noted in HPI and below Exam Narrative: General: well-nourished, well-appearing 67-year-old male, sitting up in bed, comfortable, NARD Neuro: awake, alert and oriented x4, speech clear, no focal neuro deficits noted HEENMT: normocephalic, at
[2022-09-14 13:46] VITALS: BP 117/67; PULSE 69; RESP 17; TEMP 36.6; O2SAT 99
[2022-09-14] MEDS: HYDROcodone/acetaminophen (*CRX) 5-325 MG TABLET 1 TAB PO (14:01)
--- NOTE | 2022-09-14 14:23 | WPDGIPROGNO ---
Progress Note: A&P Assessment and Plan (1) Acute pancreatitis: Code(s): K85.90 - Acute pancreatitis without necrosis or infection, unspecified Status: Acute Assessment and Plan: mrcp reviewed, Acute interstitial pancreatitis with small acute peripancreatic fluid collections, no pancreatic lesion no clear etiology of pancreatitis, GB is normal advance diet, feeling better (2) Abdominal pain: Code(s): R10.9 - Unspecified abdominal pain Status: Acute Assessment and Plan: improving (3) Hypertension: Qualifiers: Hypertension type: essential hypertension Qualified Code(s): I10 - Essential (primary) hypertension Code(s): I10 - Essential (primary) hypertension Status: Chronic (4) Hypoglycemia: Code(s): E16.2 - Hypoglycemia, unspecified Status: Acute Subjective Date/time seen: 09/14/22 14:23 Interval history: less pain and tolerated liquid diet Review of Systems Review of Systems: All systems reviewed & are unremarkable except as noted in HPI and below Exam Const: General: comfortable and no acute distress HENMT: Face/Nose/Sinus: Normal nares present Eyes: General: appearance normal, both eyes and all related structures Neck: Neck: no JVD Resp: Auscultation: clear to auscultation bilaterally Cardio: Rate: regular rate Rhythm: regular rhythm GI: Inspection: non-distended GI Palp: Yes Soft to palpation and Yes Guarding due to palpation present (GI) Auscultation: normal bowel sounds Other: less tender Skin: General skin exam: normal color Neuro: General: gait normal Speech: normal speech Extrem: General: normal to inspection Psych: Mental Status: mental status grossly normal Objective Data Vital Signs Vital Signs: Vital Signs - 24 hr 09/13/22 21:48 09/13/22 20:00 09/14/22 05:37 Temperature 98.4 F 97.1 F L Pulse Rate 74 65 Respiratory Rate 16 16 Blood Pressure 119/60 138/79 Pulse Oximetry 94 96 Oxygen Delivery Room Air Intake/Output Intake/Output: Intake & Output 09/11/22 09/12/22 09/13/22 09/14/22 23:59 23:59 23:59 23:59 Intake Total 1999 1999 2509 Balance 1999 1999 2509 Meds/Results Medications: Active Medications Generic Name Dose Route Start Last Admin Trade Name Freq PRN Reason Stop Dose Admin Acetaminophen 650 mg 09/14/22 18:00 Acetaminophen 325 Mg Tablet PO Q6HR SHERYL Hydrocodone Bitart/Acetaminophen 1 tab 09/14/22 13:33 09/14/22 14:01 Hydrocodone/Acetaminophen (*Crx) 5-325 Mg Tablet PO 1 tab Q6H PRN Administration Pain Rated 4-6 Dextrose 12.5 gm 09/14/22 07:34 09/14/22 08:01 Dextrose 50% 25 Gm/50 Ml Syringe IV PUSH 12.5 gm PRN PRN Administration Hypoglycemia Protocol Enoxaparin Sodium 40 mg 09/13/22 09:00 09/14/22 08:17 Enoxaparin 40 Mg/0.4 Ml Syringe SUB-Q Not Given DAILY SHERYL Famotidine 20 mg 09/13/22 09:00 09/14/22 08:05 Famotidine 20 Mg/2 Ml Vial IV PUSH 20 mg Q12HR SHERYL Administration Fish Oil 1 gm 09/13/22 09:00 09/14/22 08:06 [place] 3 Polyunsat Fatty Acids 1 Gm Cap PO 1 gm QAM SHERYL Administration Glucagon 1 mg 09/14/22 07:34 Glucagon For Inj 1 Mg Vial IM PRN PRN Hypoglycemia Protocol Glucose 15 gm 09/14/22 07:34 Glucose Oral Gel 15 Gm Of Glucse In 37.5 Gm Tube PO PRN PRN Hypoglycemia Protocol Hydrochlorothiazide 25 mg 09/13/22 09:00 09/14/22 08:17 Hydrochlorothiazide 25 Mg Tablet PO 25 mg DAILY SHERYL Administration Sodium Chloride 1,000 mls @ 100 mls/hr 09/12/22 21:45 09/14/22 14:01 Normal Saline Iv IV CONT 100 mls/hr .Q10H SHERYL Administration Dextrose 1,000 mls @ 100 mls/hr 09/14/22 07:34 Dextrose 5% 1,000 Ml IVPB PRN PRN Hypoglycemia Protocol Lisinopril 40 mg 09/13/22 09:00 09/14/22 08:06 Lisinopril 20 Mg Tablet PO 10/13/22 08:59 40 mg DAILY SHERYL Administration Morphine Sulfate 4 mg 01
[2022-09-14] MEDS: ACETAMINOPHEN 325 MG TABLET 650 MG PO ×2 (17:28→23:42)
[2022-09-14 21:20] VITALS: BP 102/66; PULSE 58; RESP 14; TEMP 36.6; O2SAT 99
[2022-09-14] MEDS: FAMOTIDINE 20 MG TABLET PO (21:43)
[2022-09-15] MEDS: ACETAMINOPHEN 325 MG TABLET 650 MG PO ×2 (05:50→12:43)
[2022-09-15 05:59] VITALS: BP 129/78; PULSE 63; RESP 14; TEMP 36.4; O2SAT 97
[2022-09-15 06:00] LABS: Hematocrit 36.6 % (42.0-52.0); Hemoglobin 12.7 g/dL (14.0-18.0); Mean Corpuscular HGB Conc 34.7 g/dl (32-36); Mean Corpuscular Hemoglobin 34.2 pg (26-34); Mean Corpuscular Volume 98.7 fl (80-100); Mean Platelet Volume 9.2 fl (7.4-10.4); Platelet Count Result 254 k/mm3 (150-375); Red Blood Count 3.71 M/mm3 (4.6-6.20); Red Cell Distribution Width 12.7 % (11.5-14.5); White Blood Count 7.7 K/mm3 (4.5-10.0)
[2022-09-15 06:13] LABS: Alanine Aminotransferase 16 U/L (6-50); Alkaline Phosphatase 76 U/L (38-126); Anion Gap 4 mmol/L (8-16); Aspartate Amino Transferase 24 U/L (17-59); Bilirubin,Total 0.8 mg/dL (0.2-1.3); Blood Urea Nitrogen 8 mg/dL (9-20); Calcium 8.3 mg/dL (8.4-10.2); Carbon Dioxide 26 mmol/L (22-30); Chloride 107 mmol/L (98-107); Estimated CRCL calculation 108 ml/min; Estimated Glomerular Filt Rate > 60; Glucose 96 mg/dL (65-110); Lipase 201 U/L (23-300); Potassium 3.4 mmol/L (3.4-5.0); Sodium 137 mmol/L (137-145)
[2022-09-15] MEDS: TAMSULOSIN HCL 0.4 MG CAPSULE PO (08:21)
[2022-09-15] MEDS: OMEGA 3 POLYUNSAT FATTY ACIDS 1 GM CAP PO (08:21)
[2022-09-15] MEDS: hydroCHLOROthiazide 25 MG TABLET PO (08:21)
[2022-09-15] MEDS: PANTOPRAZOLE 40 MG TABLET PO (08:21)
[2022-09-15] MEDS: SERTRALINE HCL 50 MG TABLET PO (08:21)
[2022-09-15] MEDS: lisinopriL 20 MG TABLET 40 MG PO (08:21)
[2022-09-15] MEDS: FAMOTIDINE 20 MG TABLET PO (08:21)
[2022-09-15] MEDS: SIMVASTATIN 20 MG TABLET PO (08:21)
[2022-09-15] MEDS: HYDROcodone/acetaminophen (*CRX) 5-325 MG TABLET 1 TAB PO (12:44)
[2022-09-15 12:56] LABS: Triglycerides 75 mg/dL (<150)
--- NOTE | 2022-09-15 14:18 | WPDGIPROGNO ---
Progress Note: A&P Assessment and Plan (1) Acute pancreatitis: Code(s): K85.90 - Acute pancreatitis without necrosis or infection, unspecified Status: Acute Assessment and Plan: mrcp showed acute interstitial pancreatitis with small acute peripancreatic fluid collections, no pancreatic lesion no clear etiology of pancreatitis, GB is normal he can go home with low fat diet follow-up office in 3-4 weeks (2) Abdominal pain: Code(s): R10.9 - Unspecified abdominal pain Status: Acute Assessment and Plan: resolved (3) Hypertension: Qualifiers: Hypertension type: essential hypertension Qualified Code(s): I10 - Essential (primary) hypertension Code(s): I10 - Essential (primary) hypertension Status: Chronic Subjective Date/time seen: 09/15/22 14:18 Interval history: overall much better, no nausea and ready to go home later today Review of Systems Review of Systems: All systems reviewed & are unremarkable except as noted in HPI and below Exam Const: General: comfortable and no acute distress HENMT: Face/Nose/Sinus: Normal nares present Eyes: General: appearance normal, both eyes and all related structures Neck: Neck: no JVD Resp: Auscultation: clear to auscultation bilaterally Cardio: Rate: regular rate Rhythm: regular rhythm GI: Inspection: non-distended GI Palp: Yes Soft to palpation, No Tenderness to palpation present (GI) and No Guarding due to palpation present (GI) Skin: General skin exam: normal color Neuro: General: gait normal Speech: normal speech Extrem: General: normal to inspection Psych: Mental Status: mental status grossly normal Objective Data Vital Signs Vital Signs: Vital Signs - 24 hr 09/14/22 21:20 09/15/22 05:59 09/15/22 08:20 Temperature 97.9 F 97.6 F Pulse Rate 58 L 63 Respiratory Rate 14 14 Blood Pressure 102/66 129/78 Pulse Oximetry 99 97 Oxygen Delivery Room Air Intake/Output Intake/Output: Intake & Output 09/12/22 09/13/22 09/14/22 09/15/22 23:59 23:59 23:59 23:59 Intake Total 1999 1999 4160 1250 Balance 1999 1999 4160 1250 Meds/Results Medications: Active Medications Generic Name Dose Route Start Last Admin Trade Name Freq PRN Reason Stop Dose Admin Acetaminophen 650 mg 09/14/22 18:00 09/15/22 12:43 Acetaminophen 325 Mg Tablet PO 325 mg Q6HR SHERYL Administration Hydrocodone Bitart/Acetaminophen 1 tab 09/14/22 13:33 09/15/22 12:44 Hydrocodone/Acetaminophen (*Crx) 5-325 Mg Tablet PO 1 tab Q6H PRN Administration Pain Rated 4-6 Dextrose 12.5 gm 09/14/22 07:34 09/14/22 08:01 Dextrose 50% 25 Gm/50 Ml Syringe IV PUSH 12.5 gm PRN PRN Administration Hypoglycemia Protocol Enoxaparin Sodium 40 mg 09/13/22 09:00 09/15/22 08:21 Enoxaparin 40 Mg/0.4 Ml Syringe SUB-Q Not Given DAILY SHERYL Famotidine 20 mg 09/14/22 21:00 09/15/22 08:21 Famotidine 20 Mg Tablet PO 20 mg Q12HR SHERYL Administration Fish Oil 1 gm 09/13/22 09:00 09/15/22 08:21 [place] 3 Polyunsat Fatty Acids 1 Gm Cap PO 1 gm QAM SHERYL Administration Glucagon 1 mg 09/14/22 07:34 Glucagon For Inj 1 Mg Vial IM PRN PRN Hypoglycemia Protocol Glucose 15 gm 09/14/22 07:34 Glucose Oral Gel 15 Gm Of Glucse In 37.5 Gm Tube PO PRN PRN Hypoglycemia Protocol Hydrochlorothiazide 25 mg 09/13/22 09:00 09/15/22 08:21 Hydrochlorothiazide 25 Mg Tablet PO 25 mg DAILY SHERYL Administration Sodium Chloride 1,000 mls @ 100 mls/hr 09/12/22 21:45 09/15/22 12:17 Normal Saline Iv IV CONT Not Given .Q10H SHERYL Dextrose 1,000 mls @ 100 mls/hr 09/14/22 07:34 Dextrose 5% 1,000 Ml IVPB PRN PRN Hypoglycemia Protocol Lisinopril 40 mg 09/13/22 09:00 09/15/22 08:21 Lisinopril 20 Mg Tablet PO 10/13/22 08:59 40 mg DAILY SHERYL Administration Morphine Sulfate 4 mg 09/12/22 21:45 09/14/22 08:02
--- NOTE | 2022-09-15 14:34 | PM.DS ---
DS: Admitting Diagnosis Discharge Date 09/15/2022 Admitting Diagnosis Acute pancreatitis DS: Discharge Diagnosis Discharge Diagnosis (1) Acute pancreatitis: Code(s): K85.90 - Acute pancreatitis without necrosis or infection, unspecified Status: Acute Assessment and Plan: Patient presented with epigastric pain. Lipase on presentation 429. CT of the abdomen/pelvis revealed inflammatory change and edema of the pancreatic body/ tail consistent with pancreatitis. Etiology unclear. Patient denies alcohol use. Gallbladder normal with no evidence of biliary duct dilation. May be related to medications vs idiopathic MRCP revealed acute interstitial pancreatitis with small acute peripancreatic fluid collection Patient was seen in consultation by Gastroenterology He had symptomatic improvement following bowel rest and rehydration Lipase normalized Diet was slowly advanced and he was able to tolerate a low-fat diet which she will continue (2) Mass of pancreas: Code(s): K86.89 - Other specified diseases of pancreas Status: Acute Assessment and Plan: CT of the abdomen/ pelvis on presentation revealed 7 mm hypodense or hypoenhancing lesion of the pancreatic body which may represent edema or necrosis from pancreatitis, however pancreatic mass not excluded MRCP completed which revealed multiple cystic lesions of the pancreas measuring up to 7 mm, most likely acute peripancreatic fluid collection He will continue to follow-up with GI as an outpatient to ensure resolution (3) Tobacco use: Code(s): Z72.0 - Tobacco use Status: Acute Assessment and Plan: Patient smokes 1 pack per day Patient was educated on smoking cessation (4) Atypical chest pain: Code(s): R07.89 - Other chest pain Status: Acute Assessment and Plan: patient with complaints of pleuritic chest pain ongoing for over 6 months patient follows with Cardiology. Lexiscan stress test recommended but was not completed. no acute issues/ changes. 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 as an outpatient (5) Hypoglycemia: Code(s): E16.2 - Hypoglycemia, unspecified Status: Resolved Assessment and Plan: Patient had one episode of hypoglycemia during admission with a blood sugar of 51 likely due to NPO status improved with hypoglycemic protocol and subsequent blood sugars were stable (6) Hypertension: Qualifiers: Hypertension type: essential hypertension Qualified Code(s): I10 - Essential (primary) hypertension Code(s): I10 - Essential (primary) hypertension Status: Chronic Assessment and Plan: Blood pressures remained stable patient was taken off amlodipine by his PCP 1 day prior to presentation given episodes of hypotension continue lisinopril-hydrochlorothiazide. continue to monitor blood pressure at home with PCP DS: Summary Hospital Course Hospital Course: Date of admission: 09/12/2022 Date of discharge: 09/15/2022 Tommy Zhao is a 67-year-old male with a history of hyperlipidemia, hypertension, arthritis, and tobacco use who presented to the emergency department on 09/12/2022 with abdominal pain worsening the past 5 days. On presentation to the ED, his vital signs were stable, he was afebrile, WBC 12.3, potassium 3.2, lipase 429, CT of the abdomen/pelvis revealed inflammatory changes and edema of the pancreatic body/tail with 7 mm lesion in the pancreatic body. He was admitted to the hospitalist service for further evaluation and management was seen in consultation by Gastroenterology. Please see above for further details. Patient had symptomatic improvement with above therapies and was able to tolerate a low-fat diet. He was feeling back to his usual state of health and was eager for discharge home. Given his overall improvement he was determined to no longer require inpatient care and was discharged in hemod
== END 2022-09-15 15:53 | disposition home or self-care (01) ==
LOC: ANHED 21:36 → ANH3MEDSUR 09-13 07:26
PROVIDERS: Admitting Provider Internal Medicine; Emergency Provider Emergency Medicine; PCP Physician Assistant; Visit Provider Physician Assistant
DX: K85.90 Acute pancreatitis without necrosis or infection, unspecified (principal); K86.89 Other specified diseases of pancreas; F17.210 Nicotine dependence, cigarettes, uncomplicated; R10.12 Left upper quadrant pain; R07.89 Other chest pain; E16.2 Hypoglycemia, unspecified; I10 Essential (primary) hypertension; K21.9 Gastro-esophageal reflux disease without esophagitis; E78.5 Hyperlipidemia, unspecified; R94.31 Abnormal electrocardiogram [ECG] [EKG]; Z20.822 Contact with and (suspected) exposure to COVID-19; F10.90 Alcohol use, unspecified, uncomplicated; F12.90 Cannabis use, unspecified, uncomplicated; N40.0 Benign prostatic hyperplasia without lower urinary tract symptoms; Z79.899 Other long term (current) drug therapy
CPT/HCPCS: 36415; 71046; 74177; 74183; 76376; 80053; 82948; 83605; 83690; 84478; 84484; 85025; 85027; 87637; 93005; 96361; 96374; 96375; 96376; 99285; A9270; A9577; G0378; J1650; J2270; J2405; J7030; Q9967

== ENCOUNTER 2022-10-26 14:39 | Outpatient (CLI) | payer MEDICARE, SELFPAY | END 2022-10-26 14:40 | disposition home or self-care (01) | LOC: ANHLAB 14:41 | PROVIDERS: PCP Physician Assistant; Visit Provider Internal Medicine Gastroenterology | DX: K86.1 Other chronic pancreatitis (principal) | CPT/HCPCS: 36415 ==

== ENCOUNTER 2022-11-07 07:39 | Outpatient (CLI) | payer MEDICARE, SELFPAY ==
--- NOTE | ~2022-11-07 | CT_ITS ---
EXAMINATION: CTA abdomen DATE: 11/07/2022 08:18 INDICATION: Abdominal pain. TECHNIQUE: Computed tomographic angiography (CTA) of the abdomen was performed with 100 mL Omnipaque- 350 intravenous contrast. Automated exposure control and iterative reconstruction technique were empl oyed. The dose-length product was 282.92 mGy-cm. Maximum intensity projection 3D-reconstructions of t he aorta and other arteries were constructed by the technologist on a separate workstation. COMPARISON: CT abdomen and pelvis 09/12/2022, MRCP 09/13/2022 FINDINGS: The visualized portions of the lung bases demonstrate mild atelectasis. Calcified pulmonary nodules are consistent with old granulomatous disease. No pleural effusion. The heart size is normal . No pericardial effusion. There are cysts in the liver measuring up to 3.1 cm. The gallbladder is no rmal. Calcifications in the spleen are consistent with old granulomatous disease. There is hypoenhanc ement in the tail of the pancreas with surrounding fat stranding and intraparenchymal 11 mm and 5 mm cystic lesions, consistent with pancreatitis. The adrenal glands and kidneys are normal. There are no dilated loops of bowel. There are no pathologically enlarged lymph nodes. There is no free intraperi toneal fluid. There is calcified atherosclerosis of the aorta and many of the other arteries. There i s mild stenosis of celiac axis. There is no significant stenosis of the superior or inferior mesenter ic arteries. There is no significant stenosis of the renal arteries. There is mild lumbar spondylosis . IMPRESSION: 1. Acute necrotizing pancreatitis with interval worsening. 2. No significant arterial occlusive disease. Reviewed, dictated and finalized at location A.
[2022-11-07 08:09] LABS: Estimated Glomerular Filt Rate > 60
== END 2022-11-07 07:40 | disposition home or self-care (01) ==
PROVIDERS: PCP Physician Assistant; Visit Provider Internal Medicine Gastroenterology
DX: R10.9 Unspecified abdominal pain (principal); K85.91 Acute pancreatitis with uninfected necrosis, unspecified
CPT/HCPCS: 74175; Q9967

== ENCOUNTER 2022-11-09 09:43 | Outpatient (CLI) | payer MEDICARE, SELFPAY ==
[2022-11-16 21:27] LABS: Pancreatic Elastase, Stool >500 mcg/g
== END 2022-11-09 09:44 | disposition home or self-care (01) ==
PROVIDERS: PCP Physician Assistant; Visit Provider Internal Medicine Gastroenterology
DX: K86.1 Other chronic pancreatitis (principal)
CPT/HCPCS: 82653

== ENCOUNTER 2022-12-08 10:30 | Emergency (ER) | payer MEDICARE, SELFPAY ==
--- NOTE | ~2022-12-08 | CT_ITS ---
CT of the Abdomen and Pelvis: Indication: Abdominal pain Technique: 2.5 mm axial scans were obtained through the abdomen and pelvis following intravenous adm inistration of 100 cc of Omnipaque 350. Dose reduction technique was used on this scan by utilizing a utomated exposure control and iterative reconstruction technique. The dose-length product (DLP) was 4 20.37 mGy-cm. COMPARISON: 11/07/2022 Findings: Scans through the lung bases are unremarkable. Stable hepatic cysts are noted. The spleen, gallbladder, adrenals and kidneys are within normal limit s. There are several small cystic lesions the pancreatic tail region. There are areas of minimal hypo enhancement at the pancreatic tail. There are atherosclerotic calcifications of the aorta. No lympha denopathy. No bowel obstruction or bowel wall thickening. There is no evidence to suggest acute appendicitis. Images through the pelvis were performed. Urinary bladder unremarkable. Prostate gland is mildly enla rged. No ascites. Impression: Several small cystic-appearing lesions of the pancreatic tail, most likely multiple small pancreatic pseudocysts given history of pancreatitis. Correlate clinically for any signs/symptoms of superinfect ion. Minimal hypoenhancement of the pancreatic tail could reflect residual of prior pancreatitis versus mi ld acute pancreatitis. Reviewed, dictated and finalized at location M. Impression: Several small cystic-appearing lesions of the pancreatic tail, most likely mult iple small pancreatic pseudocysts given history of pancreatitis. Correlate clin ically for any signs/symptoms of superinfection. Minimal hypoenhancement of the pancreatic tail could reflect residual of prior pancreatitis versus mild acute pancreatitis.
[2022-12-08 10:49] VITALS: BP 121/80; PULSE 73; RESP 16; TEMP 36.9; O2SAT 99
[2022-12-08 11:05] LABS: Basophils Percent Auto 0.4 % (0.2-1.2); Eosinophils Absolute Auto 0.1 K/mm3 (0-0.3); Eosinophils Percent Auto 0.9 % (0-4.4); Hematocrit 44.7 % (42.0-52.0); Hemoglobin 15.8 g/dL (14.0-18.0); Immature Granulocyte Absolute 0.03 K/mm3 (0.00-0.031); Immature Granulocyte Percent A 0.3 % (0-0.5); Lymphocytes Absolute Auto 2.64 K/mm3 (0.9-3.2); Lymphocytes Percent Auto 29.2 % (18.3-44.2); Mean Corpuscular HGB Conc 35.3 g/dl (32-36); Mean Corpuscular Hemoglobin 34.3 pg (26-34); Monocytes Absolute Auto 0.7 K/mm3 (0.1-0.6); Monocytes Percent Auto 7.4 % (2.6-8.5); Neutrophils Absolute Auto 5.6 K/mm3 (1.3-6.7); Neutrophils Percent Auto 61.8 % (45.5-73.1); Platelet Count Result 274 k/mm3 (150-375); Red Blood Count 4.61 M/mm3 (4.6-6.20); Red Cell Distribution Width 13.1 % (11.5-14.5)
[2022-12-08 11:13] LABS: Alanine Aminotransferase 31 U/L (6-50); Albumin Level 4.6 g/dL (3.5-5.1); Alkaline Phosphatase 83 U/L (38-126); Anion Gap 9 mmol/L (8-16); Aspartate Amino Transferase 29 U/L (17-59); Bilirubin,Total 0.6 mg/dL (0.2-1.3); Blood Urea Nitrogen 21 mg/dL (9-20); Calcium 9.7 mg/dL (8.4-10.2); Carbon Dioxide 23 mmol/L (22-30); Chloride 104 mmol/L (98-107); Estimated CRCL calculation 94 ml/min; Estimated Glomerular Filt Rate > 60; Glucose 108 mg/dL (65-110); Lipase 288 U/L (23-300); Potassium 3.8 mmol/L (3.4-5.0); Sodium 136 mmol/L (137-145)
[2022-12-08 11:28] LABS: Appearance Urine Clear (Clear); Bilirubin Urine Negative (Negative); Blood Urine Negative (Negative); Color Urine Yellow (Yellow); Glucose Urine UA Negative (Negative); Ketones Urine Negative (Negative); Leukocyte Esterase Ur Negative LEU/UL (Negative); Nitrate Urine Negative (Negative); Protein Urine Negative (Negative); Specific Grav Ur 1.024 (1.001-1.035); Urobilinogen Urine 0.2 mg/dL (<2.0)
[2022-12-08 11:37] LABS: Add Urine Microscopic? NO
--- NOTE | 2022-12-08 11:53 | ECG_ITS ---
Measurements Intervals [place] Rate: 60 P: 73 AK: 195 QRS: -16 QRSD: 85 T: 45 QT: 408 QTc: 410 Interpretive Statements SINUS RHYTHM COMPARED TO ECG 09/12/2022 20:40:05 NO SIGNIFICANT CHANGES Electronically Signed On 12-08-2022 13:03:35 CDT by Kady Renteria M.D.
--- NOTE | 2022-12-08 11:54 | ED.ABDPAIN ---
HPI - Abdominal Pain General Chief Complaint: Abdominal Pain <Kia Raya PA-C - Last Filed: 12/08/22 18:11> Stated Complaint: abd pain <Kia Raya PA-C - Last Filed: 12/08/22 18:11> Time Seen by Provider: 12/08/22 11:38 <Kia Raya PA-C - Last Filed: 12/08/22 18:11> History of Present Illness HPI narrative: 67-year-old male with a history of chronic pancreatitis, dyslipidemia, hypertension reports for evaluation of left lower quadrant and left upper quadrant abdominal pain, nausea and vomiting that is worsened beyond baseline for the past 3 days. Patient reports 5 episodes of vomiting total in the past 2 weeks, 2 in the last 2 days. He also reports intermittent episodes of diarrhea that have been ongoing for the past few weeks. No melena, hematochezia, hemoptysis, coffee-ground emesis, documented fever, urinary complaints, dyspnea. He is also reporting intermittent chest pain that moves around his chest and occurs concurrently with the abdominal pain. The chest pain has been present for multiple months, he was evaluated by cardiology, Dr. Puentes, with an ultimately negative work-up. Patient was hospitalized for acute pancreatitis from 09/12/2022 - 09/15/2022. Lipase at that time was found to be 429, CT scan revealed inflammatory changes and edema of the pancreatic body and tail, 7 mm hypodense or hypoenhancing lesion in the pancreatic body. At that point, patient underwent an MRCP which showed acute interstitial pancreatitis with multiple small cystic lesions in the pancreas, likely acute peripancreatic fluid collections. Patient has since followed up with who obtained a CTA of the abdomen and pelvis concerning for mesenteric insufficiency which revealed no significant arterial occlusive disease. Patient's triglycerides were found to be normal, he is not a drinker. Patient has a follow-up appoint with Dr. Abbott in 4 days. <Kia Raya PA-C - Last Filed: 12/08/22 18:11> Related Data Home Medications: Home Medications Medication Instructions Recorded Confirmed omega 4-gua-bcm-fish oil 100 1 cap PO DAILY 07/04/22 10/24/22 mg-160 mg-1,000 mg capsule (Fish Oil) omeprazole 20 mg capsule,delayed 20 mg PO DAILY 09/12/22 10/24/22 release <Kia Raya PA-C - Last Filed: 12/08/22 18:11> Allergies/Adverse Reactions: Allergies Allergy/AdvReac Type Severity Reaction Status Date / Time No Known Allergies Allergy Mild Verified 10/24/22 14:44 <Kia Raya PA-C - Last Filed: 12/08/22 18:11> Review of Systems Review of Systems: CONSTITUTIONAL: Denies fever, chills EYES: Denies visual changes, redness, or discharge. ENT: Denies rhinorrhea, congestion, sore throat, or otalgia. CARDIOVASCULAR: Denies chest pain, palpitations, or edema. RESPIRATORY: Denies cough or dyspnea. GASTROINTESTINAL: See HPI GENITOURINARY: Denies dysuria or hematuria. SKIN: Denies rash or itching. MUSCULOSKELETAL: Denies back pain, joint pain, or myalgia. NEUROLOGIC: Denies headache, numbness, dizziness, or weakness. PSYCHIATRIC: Denies anxiety or depression. <Kia Raya PA-C - Last Filed: 12/08/22 18:11> [facility] Past Medical History Medical History: Medical History Arthritis Hx of appendicitis Hyperlipidemia Hypertension <Kia Raya PA-C - Last Filed: 12/08/22 18:11> Family History Family History: Family History Mother Family history of osteoarthritis Family history of alcoholism Dementia Father Family history of alcoholism <Kia Raya PA-C - Last Filed: 12/08/22 18:11> Social History Social History: Social History Smoking packs per day: 1 Smoking cigarettes per day: 20.0 Years smoked: 40 Smoking pack-years: 40.00 Smoking sta
[2022-12-08] MEDS: ONDANSETRON INJ 4 MG/2 ML VIAL IV PUSH (12:21)
[2022-12-08] MEDS: MORPHINE SULFATE (*CRX) 4 MG/ML INJ IV PUSH (12:22)
[2022-12-08] MEDS: SODIUM CHLORIDE 0.9% IV 1,000 ML 999 ML IV CONT (12:22)
[2022-12-08 12:25] VITALS: BP 157/87; PULSE 64; RESP 16; O2SAT 98
[2022-12-08 12:42] LABS: Lactic Acid Reflex 0.8 mmol/L (0.7-2.0)
[2022-12-08 12:54] LABS: Troponin I < 0.012 ng/mL (0.000-0.034)
[2022-12-08 14:23] VITALS: BP 120/73; PULSE 66; RESP 16; O2SAT 99
[2022-12-08 16:08] LABS: Troponin I < 0.012 ng/mL (0.000-0.034)
[2022-12-08 16:44] VITALS: BP 117/74; PULSE 61; RESP 16; O2SAT 97
== END 2022-12-08 17:02 | disposition home or self-care (01) ==
PROVIDERS: Emergency Medicine; Emergency Provider Physician Assistant; PCP Physician Assistant
DX: K52.9 Noninfective gastroenteritis and colitis, unspecified (principal); R07.89 Other chest pain; R10.32 Left lower quadrant pain; K86.1 Other chronic pancreatitis; E78.5 Hyperlipidemia, unspecified; I10 Essential (primary) hypertension; M19.90 Unspecified osteoarthritis, unspecified site; F17.210 Nicotine dependence, cigarettes, uncomplicated
CPT/HCPCS: 36415; 74177; 80053; 81003; 83605; 83690; 84484; 85025; 93005; 96361; 96374; 96375; 99284; J2270; J2405; J7030; Q9967

== ENCOUNTER 2022-12-13 10:13 | Outpatient (CLI) | payer MEDICARE, SELFPAY ==
[2022-12-20 22:05] LABS: Calprotectin, Stool 157 mcg/g
== END 2022-12-13 10:14 | disposition home or self-care (01) ==
LOC: ANHLAB 10:15
PROVIDERS: PCP Physician Assistant; Visit Provider Internal Medicine Gastroenterology
DX: R19.7 Diarrhea, unspecified (principal)
CPT/HCPCS: 83993

== ENCOUNTER 2023-07-23 11:41 | Emergency (ER) | payer MEDICARE, SELFPAY ==
--- NOTE | ~2023-07-23 | XR_ITS ---
EXAMINATION: XR foot LT min 3V DATE: 07/23/2023 12:01 INDICATION: Left foot injury and pain. TECHNIQUE: 4 views of left foot were obtained. COMPARISON: None. FINDINGS: There is an avulsion fracture of base of fifth metatarsal with 2 mm distraction. There is m ild osteoarthritis of first metatarsophalangeal joint and some of the interphalangeal joints and talo navicular joint. There are enthesophytes at the posterior and plantar aspect of calcaneal tuberosity. IMPRESSION: 1. Avulsion fracture of base of fifth metatarsal. Reviewed, dictated and finalized at location A. [place]
[2023-07-23 11:50] VITALS: BP 115/70; PULSE 75; RESP 16; TEMP 36.9; O2SAT 98
--- NOTE | 2023-07-23 11:53 | ED.LOWEXIN ---
HPI - Extremity Injury (Lower) General Chief Complaint: Extremity Injury, Lower Stated Complaint: Sprained ankle Time Seen by Provider: 07/23/23 11:54 Source: patient, RN notes reviewed and old records reviewed Mode of arrival: ambulatory Limitations: no limitations History of Present Illness HPI Narrative: 68-year-old male [facility] with complaint left foot pain this started 3 days ago. Patient states rolled ankle 3 days ago and started having pain. Patient states had same thing happened 1 month ago but did not seek care at that time. Patient has been icing and elevating foot. MD complaint: foot injury Onset (ago): day(s) (3) Related Data Home Medications Medication Instructions Recorded Confirmed omega 5-nwe-yhc-fish oil 100 1 cap PO DAILY 07/04/22 12/24/22 mg-160 mg-1,000 mg capsule (Fish Oil) Allergies Allergy/AdvReac Type Severity Reaction Status Date / Time No Known Allergies Allergy Mild Verified 12/21/22 08:59 Review of Systems Constitutional: Constitutional: Reports no additional constitutional complaints Eyes: Eyes: Reports no additional eye complaints ENT: Reports system reviewed and no additional complaints, except as documented Cardiovascular: Cardiovascular: Reports no additional cardiovascular complaints Respiratory: Respiratory: Reports no additional respiratory complaints Musculoskeletal: Musculoskeletal: Reports as per HPI Comments: Left foot pain Neurologic: Reports system reviewed and no additional complaints, except as documented [facility] Past Medical History Medical History Arthritis Hx of appendicitis Hyperlipidemia Hypertension Family History Family History Mother Family history of osteoarthritis Family history of alcoholism Dementia Father Family history of alcoholism Social History Social History Smoking packs per day: 1 Smoking cigarettes per day: 20.0 Years smoked: 40 Smoking pack-years: 40.00 Smoking status: Current every day smoker Tobacco type: cigarettes Second hand tobacco smoke exposure: Yes Alcohol intake: never Substance use: current Substance use type: marijuana Lack of Transportation: No Lack of Food: Never True Current Housing: I Have Housing Concerned About Future Housing: No Difficulty Paying Gas/Electric Bills: No Difficulty Paying for Meds: No Currently Unemployed: No Education: Associate Degree Difficulty w/ Childcare or Family Care: No Spiritual care concerns: No Comments At the time of my signature, I reviewed and agree with the nursing past medical, surgical, social, and family history. There is no relevant family history pertinent to the patient complaint. Exam Const: General: cooperative, healthy appearing, no acute distress and well nourished Nutritional Appearance: well nourished Orientation/consciousness: patient oriented x3 Limitations: no limitations HENMT: Head: normal to inspection and normocephalic Ears: external ears normal, TM's normal bilaterally, mastoids normal and Abnormal EAC present Face/Nose/Sinus: normal facial exam Face and sinus: normal facial exam Mouth: Yes Normal oral and palatal mucosa present, Yes oropharynx normal and Yes moist mucous membranes Throat: posterior oropharynx normal, tonsils normal, uvula midline and no uvular edema Eyes: General: appearance normal, both eyes and all related structures Sclera: sclerae normal Pupils: Equal, round and reactive pupils present Resp: Effort & Inspection: normal respiratory effort, able to speak in complete sentences, no audible wheezes, no cough, no respiratory distress and no retractions Cardio: Rate: regular rate Skin: General skin exam: normal color and no rashes or lesions noted Neuro: General: patient rochelle
== END 2023-07-23 12:21 | disposition home or self-care (01) ==
PROVIDERS: Emergency Provider Registered Nurse; PCP Physician Assistant
DX: S92.352A Displaced fracture of fifth metatarsal bone, left foot, initial encounter for closed fracture (principal); X50.9XXA Other and unspecified overexertion or strenuous movements or postures, initial encounter; M19.90 Unspecified osteoarthritis, unspecified site; E78.5 Hyperlipidemia, unspecified; I10 Essential (primary) hypertension; F17.210 Nicotine dependence, cigarettes, uncomplicated; F12.90 Cannabis use, unspecified, uncomplicated
CPT/HCPCS: 73630; 99214; G0463

== ENCOUNTER 2023-08-07 09:24 | Outpatient (CLI) | payer MEDICARE, SELFPAY ==
[2023-08-07 09:51] LABS: Basophils Absolute Auto 0.1 K/mm3 (0.0-0.1); Basophils Percent Auto 0.6 % (0.2-1.2); Eosinophils Absolute Auto 0.2 K/mm3 (0-0.3); Eosinophils Percent Auto 1.7 % (0-4.4); Hematocrit 46.1 % (42.0-52.0); Hemoglobin 15.9 g/dL (14.0-18.0); Immature Granulocyte Absolute 0.04 K/mm3 (0.00-0.031); Immature Granulocyte Percent A 0.4 % (0-0.5); Lymphocytes Absolute Auto 3.97 K/mm3 (0.9-3.2); Lymphocytes Percent Auto 41.4 % (18.3-44.2); Mean Corpuscular HGB Conc 34.5 g/dl (32-36); Mean Corpuscular Hemoglobin 34.4 pg (26-34); Mean Corpuscular Volume 99.8 fl (80-100); Mean Platelet Volume 8.8 fl (7.4-10.4); Monocytes Absolute Auto 0.9 K/mm3 (0.1-0.6); Monocytes Percent Auto 9.3 % (2.6-8.5); Neutrophils Absolute Auto 4.5 K/mm3 (1.3-6.7); Neutrophils Percent Auto 46.6 % (45.5-73.1); Platelet Count Result 372 k/mm3 (150-375); Red Blood Count 4.62 M/mm3 (4.6-6.20); Red Cell Distribution Width 14.5 % (11.5-14.5); White Blood Count 9.6 K/mm3 (4.5-10.0)
[2023-08-07 10:58] LABS: Alanine Aminotransferase 35 U/L (6-50); Albumin Level 4.4 g/dL (3.5-5.1); Alkaline Phosphatase 122 U/L (38-126); Anion Gap 8 mmol/L (8-16); Aspartate Amino Transferase 35 U/L (17-59); Bilirubin,Total 0.7 mg/dL (0.2-1.3); Blood Urea Nitrogen 16 mg/dL (9-20); Calcium 9.8 mg/dL (8.4-10.2); Carbon Dioxide 27 mmol/L (22-30); Chloride 102 mmol/L (98-107); Estimated Glomerular Filt Rate > 60; Glucose 115 mg/dL (65-110); Potassium 4.6 mmol/L (3.4-5.0); Sodium 137 mmol/L (137-145)
[2023-08-09 20:24] LABS: CA 19-9 5 U/mL (<34)
== END 2023-08-07 09:25 | disposition home or self-care (01) ==
LOC: ANHLAB 09:26
PROVIDERS: PCP Physician Assistant; Visit Provider Student in an Organized Health Care Education/Training Program
DX: C25.2 Malignant neoplasm of tail of pancreas (principal)
CPT/HCPCS: 36415; 80053; 85025; 86301

== ENCOUNTER 2023-08-15 10:16 | Outpatient (CLI) | payer MEDICARE, SELFPAY ==
[2023-08-15 11:06] LABS: INR 0.9; Prothrombin Time 12.7 Seconds (11.1-14.7)
[2023-08-15 11:07] LABS: Partial Thromboplastin Time 32.3 SECONDS (22.3-36.8)
== END 2023-08-15 10:17 | disposition home or self-care (01) ==
LOC: ANHSURGERY 10:21
PROVIDERS: PCP Physician Assistant; Visit Provider Surgery
DX: C25.9 Malignant neoplasm of pancreas, unspecified (principal)
CPT/HCPCS: 36415; 85610; 85730

== ENCOUNTER 2023-08-20 03:41 | Day surgery (SDC) | payer MEDICARE, SELFPAY ==
[2023-08-14 13:25] VITALS: BMI 23.3
--- NOTE | 2023-08-14 13:34 | PC.NURSE ---
PRE-OP INSTRUCTIONS, PLEASE READ CAREFULLY Report to the Outpatient Waiting Room, entrance under the green pavilion located off [facility], at time _1100_ on date _08/20/23_. Planned Procedure Time: _1 PM_. Time changes happen often and if your time is changed the preop area will call you the afternoon before. - You and your visitor will be asked to self-screen and do not enter if you have any COVID symptoms. - A mask is optional within the hospital at this time. Patients may have clear liquids (water, carbonated beverages, clear teas, apple juice) until 3 hours prior to surgery with a maximum of 20 ounces. - No food from midnight until time of surgery Take the following medications with a SIP of water the morning of surgery: _NONE_ DO NOT STOP ANY OF YOUR OTHER PRESCRIPTION MEDICATIONS PRIOR TO SURGERY ?EXCEPT THE FOLLOWING Medications to discontinue per ANESTHESIA - _MULTIVITAMIN & FISH OIL 3 DAYS PRIOR TO SURGERY, Date to take last dose 08/16/23_ Please no make-up, nail macanese, hairspray, perfume, deodorant, or body powder the day of surgery. No jewelry (including any body piercings) or valuables the day of surgery, leave them at home. Please take a shower or bath the night before, or the morning of, surgery with an antibacterial soap. Wear comfortable, loose fitting clothing. - Jewelry must be removed prior to entering the operating room. Rings and piercings that are not removed may be cut off. - The hospital will not accept responsibility for valuables. - Please leave all valuables, including medications, at home the day of surgery. If you are going home after surgery, a licensed box truck driver must drive you home. - NO public transportation without another adult if you receive anesthesia. - We recommend that an adult stay with you for 24 hours following discharge. - We also recommend that you do not drive, make important decision, drink alcoholic beverages, or take any drugs that were not prescribed by your health care provider for at least 24 hours after your discharge time. Follow any additional instructions given to you from your surgeon. If you or anyone in your household have experienced Covid symptoms in the past week, please notify your surgeon or the nurse liaison at the phone number below for possible testing. Telephone instructions given to _PATIENT_and asked if any additional questions and then verbalized understanding. Patient advised to call surgeon office or pre surgery nurse liaison [phone] if any additional questions.
[2023-08-20] VITALS (7 sets, daily range): BP systolic 112–151; BP diastolic 68–81; PULSE 73–80; RESP 14–19; TEMP 36.4–36.7; O2SAT 96–100
--- NOTE | ~2023-08-20 | XR_ITS ---
EXAMINATION: XR fl guide central line place DATE: 08/20/2023 12:59 INDICATION: Port placement. TECHNIQUE: 2 intraoperative spot fluoroscopic views of the chest were obtained. I was not present. Fl uoroscopy exposure time was 27 seconds. COMPARISON: Chest single view 08/20/2023 FINDINGS: The port tip is at the superior cavoatrial junction. IMPRESSION: 1. Port tip at the superior cavoatrial junction. Reviewed, dictated and finalized at location A. ORT COORDINATOR
--- NOTE | ~2023-08-20 | XR_ITS ---
EXAMINATION: XR chest port-a-cath/central DATE: 08/20/2023 13:24 INDICATION: Port placement. TECHNIQUE: A single frontal view of the chest was obtained. COMPARISON: Chest 2 views 09/12/2022 FINDINGS: Calcified right lung nodules are consistent with old granulomatous disease. No pleural effu roxana or pneumothorax. The heart size is normal. There is a right internal jugular port with tip at pa perior cavoatrial junction. IMPRESSION: 1. Port tip at superior cavoatrial junction. Reviewed, dictated and finalized at location A. CTURAL ANALYSIS ENGINEER
--- NOTE | 2023-08-20 11:07 | WPDANESEPPF ---
Anes - Initial Pre Proc Eval Procedure: Operation Date: 08/20/23 12:00 Proposed Procedures p Insertion Paolo Cath - Daniel Sims MD Date/Time: 08/20/23 11:07 Surgeon: Daniel Sims MD Pre Op Diagnosis: malignant neoplasm of tail of pancreas Patient Data Age: 68 Gender: M Height: 1.77 m Weight: 74.8 kg Last Vital Signs Temp 36.7 C 08/20/23 10:36 Pulse 75 08/20/23 10:36 Resp 14 08/20/23 10:36 BP 112/70 08/20/23 10:36 Pulse Ox 98 08/20/23 10:36 O2 Del Method Room Air 08/20/23 10:36 Allergies Allergy/AdvReac Type Severity Reaction Status Date / Time No Known Allergies Allergy Mild Verified 08/20/23 10:41 Home Medications Medication Instructions Recorded Confirmed Type omega 2-kla-ddv-fish oil 100 1 cap PO DAILY 07/04/22 08/14/23 History mg-160 mg-1,000 mg capsule (Fish Oil) finasteride 5 mg tablet 5 mg PO DAILY #90 tabs 12/21/22 08/14/23 Rx sertraline 50 mg tablet See Rx Instructions .Route 04/12/23 08/14/23 Rx .COMPLEX #100 tabs simvastatin 20 mg tablet See Rx Instructions .Route 05/17/23 08/14/23 Rx .COMPLEX #100 tabs tamsulosin 0.4 mg capsule See Rx Instructions .Route 05/17/23 08/14/23 Rx .COMPLEX #100 caps lisinopril 20 See Rx Instructions .Route 06/01/23 08/14/23 Rx mg-hydrochlorothiazide 12.5 mg .COMPLEX #200 tabs tablet wzwnusyd-em-korjp 300 mcg-K 60 1 tablet PO DAILY 08/14/23 08/14/23 History mcg-lycop 600 mcg-lutein 300 mcg tablet (Centrum Silver Men) Patient hx anesthesia problems: none Family hx anesthesia problems: none Results Review: All pre-operative results and documents have been reviewed as part of the pre-operative evaluation. [facility] Past Medical History Medical History Arthritis Hx of appendicitis Hyperlipidemia Hypertension Family History Family History Mother Family history of osteoarthritis Family history of alcoholism Dementia Father Family history of alcoholism Social History Social History Smoking packs per day: 0.5 Smoking cigarettes per day: 10.0 Years smoked: 45 Smoking pack-years: 22.50 Smoking status: Current every day smoker Tobacco type: cigarettes Second hand tobacco smoke exposure: Yes Alcohol intake: never Substance use: current Substance use type: marijuana Other substance usage details: REC - 1 HITTER, 1-2XWK Last use: 09/12/22 Lack of Transportation: No Lack of Food: Never True Current Housing: I Have Housing Concerned About Future Housing: No Difficulty Paying Gas/Electric Bills: No Difficulty Paying for Meds: No Currently Unemployed: No Education: Associate Degree Difficulty w/ Childcare or Family Care: No Living arrangements: with family Occupation/Education: retired Gender identity (if verbalized by the patient): Male Spiritual care concerns: No Anes - Eval Final PreProcedure Day of Procedure 08/20/23 11:07 Patient weight: normal Heart: regular rate and rhythm Lungs: decreased breath sounds Airway: Mallampati scale class II Neurological: alert and oriented Last oral intake: >/= 8 hours ASA classification: IV Emergent: no Anesthetic plan: proceed Anesthesia type and monitoring: general GIVS and standard monitoring Results Review: All pre-operative results and documents have been reviewed as part of the pre-operative evaluation. Informed Consent: The patient's anesthetic plan and its attendant risks and benefits were discussed with the patient/family/POA. Questions were solicited and answers provided to the satisfaction of the patient/family/POA.
--- NOTE | 2023-08-20 12:15 | PM.IMHP ---
H&P: HPI History of Present Illness Date/Time: 08/20/23 12:15 Chief Complaint: Pancreatic CA Narrative: Pt with pancreatic CA recently resected with positive regional lymph nodes. He is to undergo chemotherapy tx. Review of Systems Review of Systems: The remainder of the review of systems to include constitutional, HEENT, cardiovascular, respiratory, GI, , integumentary, musculoskeletal, endocrine, immunologic, hematologic, psychiatric, and neurologic are all negative except for which is mentioned above in the HPI. [facility] Past Medical History Medical History Arthritis Hx of appendicitis Hyperlipidemia Hypertension Family History Family History Mother Family history of osteoarthritis Family history of alcoholism Dementia Father Family history of alcoholism Social History Social History Smoking packs per day: 0.5 Smoking cigarettes per day: 10.0 Years smoked: 45 Smoking pack-years: 22.50 Smoking status: Current every day smoker Tobacco type: cigarettes Second hand tobacco smoke exposure: Yes Alcohol intake: never Substance use: current Substance use type: marijuana Other substance usage details: REC - 1 HITTER, 1-2XWK Last use: 09/12/22 Lack of Transportation: No Lack of Food: Never True Current Housing: I Have Housing Concerned About Future Housing: No Difficulty Paying Gas/Electric Bills: No Difficulty Paying for Meds: No Currently Unemployed: No Education: Associate Degree Difficulty w/ Childcare or Family Care: No Living arrangements: with family Occupation/Education: retired Gender identity (if verbalized by the patient): Male Spiritual care concerns: No Meds Home Medications and Allergies Home Medications Medication Instructions Recorded Confirmed Type omega 5-ppe-vtb-fish oil 100 1 cap PO DAILY 07/04/22 08/14/23 History mg-160 mg-1,000 mg capsule (Fish Oil) finasteride 5 mg tablet 5 mg PO DAILY #90 tabs 12/21/22 08/14/23 Rx sertraline 50 mg tablet See Rx Instructions .Route 04/12/23 08/14/23 Rx .COMPLEX #100 tabs simvastatin 20 mg tablet See Rx Instructions .Route 05/17/23 08/14/23 Rx .COMPLEX #100 tabs tamsulosin 0.4 mg capsule See Rx Instructions .Route 05/17/23 08/14/23 Rx .COMPLEX #100 caps lisinopril 20 See Rx Instructions .Route 06/01/23 08/14/23 Rx mg-hydrochlorothiazide 12.5 mg .COMPLEX #200 tabs tablet swhagnrq-xk-fsehj 300 mcg-K 60 1 tablet PO DAILY 08/14/23 08/14/23 History mcg-lycop 600 mcg-lutein 300 mcg tablet (Centrum Silver Men) Allergies Allergy/AdvReac Type Severity Reaction Status Date / Time No Known Allergies Allergy Mild Verified 08/20/23 10:41 Vital Signs Vital Signs - 24 hr 08/20/23 10:36 Temperature 36.7 C Pulse Rate 75 Respiratory Rate 14 Blood Pressure 112/70 Pulse Oximetry 98 Oxygen Delivery Room Air Exam Const: General: comfortable and no acute distress HENMT: Ears: TM's normal bilaterally Face/Nose/Sinus: Normal nares present Mouth: Yes moist mucous membranes Eyes: General: appearance normal, both eyes and all related structures Sclera: sclerae normal Pupils: Equal, round and reactive pupils present EOM: EOMs intact bilaterally Neck: Neck: supple and no JVD Resp: Effort & Inspection: normal respiratory effort Auscultation: clear to auscultation bilaterally Cardio: Rate: regular rate Rhythm: regular rhythm GI: GI Palp: Yes Soft to palpation, No Firmness to palpation present (GI), No Tenderness to palpation present (GI), No Guarding due to palpation present (GI) and No Hernia present Other: Well healed robotic abdominal port site and extraction site incisions. No incisional hernias. Skin: General skin exam: normal color and no rashes or lesions noted Neuro:
--- NOTE | 2023-08-20 12:19 | WPDHPUPDATE1 ---
History and Physical Update Update Date/Time: 08/20/23 12:19 History and Physical has been reviewed, including an updated exam of the patient. There are NO changes in the patient's condition. Risks, benefits, and alternatives have been discussed and questions answered. Patient agrees to proceed with procedure.
[2023-08-20] MEDS: ceFAZolin 2 GM/D5W 50 ML 2 GM/50 ML BAG IVPB (12:22)
[2023-08-20] MEDS: LIDO 1%/EPINEPHRINE 1:100,000 50 ML VIAL 30 ML INFILTRATE (12:45)
[2023-08-20] MEDS: BUPivacaine HCL 0.5% PF 30 ML VIAL INFILTRATE (12:46)
[2023-08-20] MEDS: HEPARIN SODIUM 5,000 UNITS/ML VIAL 5000 UNITS IRRIGATION (12:47)
[2023-08-20] MEDS: HEPARIN SODIUM 1,000 UNITS/ML VIAL 1000 UNITS IV PUSH (12:48)
[2023-08-20] MEDS: LACTATED RINGERS 1,000 ML 30 ML IV CONT (13:13)
--- NOTE | 2023-08-20 13:14 | W.PM.PROC2 ---
Procedure Note - Detailed Date of Procedure 08/20/23 Pre-op Diagnosis malignant neoplasm of tail of pancreas Post-op Diagnosis Same Procedure Performed Placement of right internal jugular vein single-lumen port a catheter Surgeon Daniel Sims MD Automated Access Systems Technician [facility] Anesthesia General Indications Patient is a 68-year-old gentleman who recently was diagnosis pancreatic tail cancer and underwent resection. Needs postoperative chemotherapy. Presents now for placement magaly catheter for the chemotherapy. Findings None significant. Description of Procedure After informed consent was obtained patient brought to the operating room was placed supine position and then general LMA anesthesia was administered. The bilateral upper anterior neck and chest was then prepped and draped usual sterile fashion. A time-out was then performed correctly identifying the patient as well as procedure to be performed verifying he was given perioperative IV antibiotics. I started by placing the patient head-down Trendelenburg position. 1% lidocaine mixed with 0.5% Marcaine was then injected between the 2 heads of the right sternocleidomastoid muscle. I then used a long 18gauge spinal needle to then cannulate the right internal jugular vein on the 1st pass without any difficulty. There was prompt return of dark venous appearing blood. A guidewire was then advanced through the needle into the right internal jugular vein and subsequent down into the superior vena cava. The needle was removed and intraoperative fluoroscopy was then used to verify the proper placement of the tip of the guidewire. I then anesthetized the area of the right upper anterior chest wall just below the medial 1/3 of the clavicle with the same local anesthetic mixture. A transverse incision was then made this care at the scalpel dissection was then carried down to the subcu tissue electrocautery. The subcutaneous port pocket just above the dressed major muscle was then created utilized electrocautery blunt finger dissection below the incision. I then advanced the 9.6 Icelandic single-lumen catheter on a tunneling device between the right anterior chest wall incision and the small incision site of the guidewire in the right anterior lateral neck. I then advanced a dilator breakaway sheath over the guidewire leaving the sheath in place. The single-lumen catheter was advanced through the sheath into the right internal jugular vein and subsequent down into the right atrium of the heart. The sheath was then torn away leaving the catheter in place. Intraoperative fluoroscopy was used once more to visualize the tip of the catheter and then I pulled back on the catheter external to the chest wall until the tip of the catheter was the distal superior vena cava. I then cut the catheter to the appropriate length the skin level and attached to the Smart Port. The port was then secured the subcutaneous port pocket on 3 sides utilizing 3-0 Prolene sutures. I then accessed the port with a Navarrete needle and it aspirated blood easily and was flushed with heparinized saline solution. I then irrigated both incisions sterile saline solution. Hemostasis was excellent. I then closed the right upper anterior chest wall incision utilizing interrupted 3-0 Vicryl sutures in the subcutaneous tissues. This is followed by running subcuticular 4-0 Monocryl suture to approximate the skin edges. Closed the small incision on the right anterior lateral neck area was a single 4-0 Monocryl suture as well. Both incisions were then cleaned the skin glue was applied. Lastly I accessed the port percutaneously with a Navarrete needle and it again aspirated blood easily and was flushed with 5000units of IV heparin. The patient tolerated the procedure well no complications. All sponges, needles, and instrument counts were correct at the end procedure. EBL was _10__cc. The patient was awakened and taken to recovery in stable and satisfactory con
--- NOTE | 2023-08-20 14:01 | SUR.PHASEI ---
1350: Chest X-ray noted
== END 2023-08-20 14:46 | disposition home or self-care (01) ==
PROVIDERS: PCP Physician Assistant; Visit Provider Surgery
PROC: (CPT 36561; principal; 2023-08-20 12:00)
DX: C25.2 Malignant neoplasm of tail of pancreas (principal); I10 Essential (primary) hypertension; E78.5 Hyperlipidemia, unspecified; F17.210 Nicotine dependence, cigarettes, uncomplicated; F12.90 Cannabis use, unspecified, uncomplicated
CPT/HCPCS: 36561; 77001; C1788; J0690; J1100; J1644; J2250; J2405; J2704; J3010; J7030; J7120

== ENCOUNTER 2023-09-06 17:22 | Observation (INO) | payer MEDICARE, SELFPAY ==
--- NOTE | ~2023-09-06 | CT_ITS ---
EXAMINATION: CT abdomen pelvis w con DATE: 09/06/2023 18:54 INDICATION: Nausea, vomiting, and diarrhea. Epigastric abdominal pain. TECHNIQUE: Computed tomography (CT) of the abdomen and pelvis was performed with 100 mL Omnipaque 350 intravenous contrast. Automated exposure control and iterative reconstruction technique were employe d. The dose-length product was 303.36 mGy-cm. COMPARISON: CT abdomen and pelvis 12/08/2022 FINDINGS: The visualized portions of the lung bases demonstrate mild atelectasis. Calcified pulmonary nodules are consistent with old granulomatous disease. No pleural effusion. The heart size is normal . No pericardial effusion. There are cysts in the liver measuring up to 3.2 cm . The gallbladder is n ormal. There are changes of splenectomy and distal pancreatectomy. The adrenal glands and kidneys are normal. There is a right inguinal hernia containing fat. The prostate is moderately enlarged. There are no dilated loops of bowel. The appendix is not visualized. There is calcified atherosclerosis of the aorta and many of the other arteries. There are no pathologically enlarged lymph nodes. There is no free intraperitoneal fluid. There is mild lumbar spondylosis. IMPRESSION: 1. No etiology for the patient's symptoms. Reviewed, dictated and finalized at location E. EAR WEAPONS CUSTODIAN
[2023-09-06 17:21] VITALS: BP 129/90; PULSE 82; RESP 16; TEMP 36.6; O2SAT 100
--- NOTE | 2023-09-06 17:33 | ED.NAVMDI ---
HPI - Nausea/Vomiting/Diarrhea General Chief complaint: Nausea/Vomiting/Diarrhea Stated complaint: n/v/d Source: patient Mode of arrival: EMS Limitations: no limitations History of Present Illness HPI Narrative: Patient is a 68 y/o male who presents to the ED via EMS with report of N/V/D. Patient has history of pancreatic cancer status post distal pancreatectomy with splenectomy in May 2023. He sees Dr. Olmos with oncology and has been undergoing oral and infused chemotherapy over the last 10 days. He states they stop the chemotherapy yesterday. He has been having nausea, vomiting, diarrhea for the last 3 days. He reports numerous episodes of watery diarrhea, up to 10-15 episodes per day. Denies rectal bleeding or melena. He took Imodium 2 days ago and reported he developed pain in his upper abdomen afterwards, which has since persisted. Patient feels very weak and fatigued. Unable to keep down any food or drink. Denies fevers, cough, cold symptoms, chest pain, shortness of breath. Related Data Home Medications Medication Instructions Recorded Confirmed omega 0-sna-oqb-fish oil 100 1 cap PO DAILY 07/04/22 09/03/23 mg-160 mg-1,000 mg capsule (Fish Oil) [id number]-dg-[id number] 300 mcg-K 60 1 tablet PO DAILY 08/14/23 09/03/23 mcg-lycop 600 mcg-lutein 300 mcg tablet (Centrum Silver Men) Allergies Allergy/AdvReac Type Severity Reaction Status Date / Time No Known Allergies Allergy Mild Verified 09/03/23 13:59 Review of Systems Review of Systems: CONSTITUTIONAL: Denies fever, chills, or sweats. CARDIOVASCULAR: Denies chest pain. RESPIRATORY: Denies cough or dyspnea. GASTROINTESTINAL: See HPI. All systems reviewed & are unremarkable except as noted in HPI and below PMFSH Past Medical History Medical History Arthritis Hx of appendicitis Hyperlipidemia Hypertension Pancreatic cancer Surgical History Surgical History History of partial pancreatectomy History of splenectomy Family History Family History Mother Family history of osteoarthritis Family history of alcoholism Dementia Father Family history of alcoholism Social History Social History Smoking packs per day: 1 Smoking cigarettes per day: 20.0 Years smoked: 50 Smoking pack-years: 50.00 Smoking status: Current some day smoker Tobacco type: cigarettes Second hand tobacco smoke exposure: Yes Alcohol intake: never Substance use: current Substance use type: marijuana Other substance usage details: REC - 1 HITTER, 1-2XWK Last use: 09/12/22 Lack of Transportation: No Lack of Food: Never True Current Housing: I Have Housing Concerned About Future Housing: No Difficulty Paying Gas/Electric Bills: No Difficulty Paying for Meds: No Currently Unemployed: No Education: Associate Degree Difficulty w/ Childcare or Family Care: No Living arrangements: with family Occupation/Education: retired Gender identity (if verbalized by the patient): Male Spiritual care concerns: No Exam Narrative: GENERAL: Mildly ill appearing, appears fatigued, well-nourished, in no acute distress. HEAD: Normocephalic, atraumatic. ENT: MMs dry. RESPIRATORY: Airway patent, respirations nonlabored but mildly tachypneic. Clear to auscultation bilaterally, no rales, rhonchi, wheezing. CARDIOVASCULAR: Regular rate and rhythm without murmurs, rubs, or gallops. ABDOMINAL: Soft, tenderness throughout upper abdomen, in epigastric region particularly. Nondistended. Normoactive BS. MUSCULOSKELETAL: Moves all extremities. No gross deformities. Port-A-Cath in R upper chest. SKIN: Warm, dry, normal color. NEURO: A&O X3. Speech clear. Cranial nerves II-XII grossly intact. No a
[2023-09-06 17:39] VITALS: O2SAT 98
[2023-09-06] MEDS: FAMOTIDINE 20 MG/2 ML VIAL IV PUSH (17:50)
[2023-09-06] MEDS: SODIUM CHLORIDE 0.9% IV 1,000 ML 999 ML IV CONT ×2 (17:51→17:52)
[2023-09-06] MEDS: ONDANSETRON INJ 4 MG/2 ML VIAL IV PUSH ×2 (17:51→20:15)
[2023-09-06 18:01] LABS: Basophils Percent Auto 0.3 % (0.2-1.2); Eosinophils Absolute Auto 0.1 K/mm3 (0-0.3); Eosinophils Percent Auto 1.2 % (0-4.4); Hematocrit 40.5 % (42.0-52.0); Hemoglobin 14.1 g/dL (14.0-18.0); Immature Granulocyte Absolute 0.02 K/mm3 (0.00-0.031); Immature Granulocyte Percent A 0.2 % (0-0.5); Lymphocytes Absolute Auto 3.69 K/mm3 (0.9-3.2); Lymphocytes Percent Auto 35.6 % (18.3-44.2); Mean Corpuscular HGB Conc 34.8 g/dl (32-36); Mean Corpuscular Hemoglobin 34.2 pg (26-34); Mean Corpuscular Volume 98.3 fl (80-100); Mean Platelet Volume 9.3 fl (7.4-10.4); Monocytes Absolute Auto 0.1 K/mm3 (0.1-0.6); Monocytes Percent Auto 1.2 % (2.6-8.5); Neutrophils Absolute Auto 6.4 K/mm3 (1.3-6.7); Neutrophils Percent Auto 61.5 % (45.5-73.1); Platelet Count Result 220 k/mm3 (150-375); Red Blood Count 4.12 M/mm3 (4.6-6.20); Red Cell Distribution Width 12.9 % (11.5-14.5); White Blood Count 10.4 K/mm3 (4.5-10.0)
[2023-09-06 18:14] LABS: Alanine Aminotransferase 28 U/L (6-50); Albumin Level 3.7 g/dL (3.5-5.1); Alkaline Phosphatase 99 U/L (38-126); Anion Gap 9 mmol/L (8-16); Aspartate Amino Transferase 27 U/L (17-59); Bilirubin,Total 1.2 mg/dL (0.2-1.3); Blood Urea Nitrogen 27 mg/dL (9-20); Calcium 9.6 mg/dL (8.4-10.2); Carbon Dioxide 26 mmol/L (22-30); Chloride 98 mmol/L (98-107); Estimated CRCL calculation 86 ml/min; Estimated Glomerular Filt Rate > 60; Glucose 116 mg/dL (65-110); Lipase 383 U/L (23-300); Potassium 3.4 mmol/L (3.4-5.0); Sodium 133 mmol/L (137-145)
[2023-09-06 18:50] LABS: Lactic Acid Reflex 1.5 mmol/L (0.7-2.0)
[2023-09-06 19:39] LABS: Magnesium 1.9 mg/dL (1.6-2.3)
[2023-09-06] MEDS: MORPHINE SULFATE (*CRX) 4 MG/ML INJ IV PUSH (20:15)
[2023-09-06 20:16] VITALS: BP 135/87; PULSE 82; RESP 14; O2SAT 98
[2023-09-06 20:52] LABS: Appearance Urine Cloudy (Clear); Bacteria Urine None Seen /hpf; Bilirubin Urine Negative (Negative); Blood Urine Negative (Negative); Color Urine Yellow (Yellow); Glucose Urine UA Negative (Negative); Ketones Urine Trace mg/dL (Negative); Leukocyte Esterase Ur Negative LEU/UL (Negative); Nitrate Urine Negative (Negative); Non Pathogenic Casts 0-2; Protein Urine Negative (Negative); RBC Urine 0-2 /hpf (0-2); Squamous Epithelial Cell Urine None seen /hpf (Few); WBC Urine 0-5 /hpf; pH Urine 7.5 (5.0-9.0)
[2023-09-06 20:53] LABS: Specific Grav Ur 1.049 (1.001-1.035)
[2023-09-06 20:54] LABS: Add Urine Microscopic? NO
--- NOTE | 2023-09-06 21:19 | PC.NURSE ---
Pt reports nausea after PO challenge. Provider made aware.
[2023-09-06 21:21] VITALS: BP 104/70; PULSE 71; RESP 19; O2SAT 97
--- NOTE | 2023-09-06 21:40 | ECG_ITS ---
Measurements Intervals Sigurd Rate: 69 P: 81 NH: 169 QRS: 31 QRSD: 90 T: 65 QT: 392 QTc: 420 Interpretive Statements SINUS RHYTHM BORDERLINE R WAVE PROGRESSION, ANTERIOR LEADS NONSPECIFIC T-WAVE ABNORMALITY- ANTERIOR LEADS BORDERLINE ECG COMPARED TO ECG 12/08/2022 12:52:08 T-WAVE ABNORMALITY NOW PRESENT Electronically Signed On 09-07-2023 6:10:32 KNITTING MACHINE MECHANIC by Kushal Puentes D.O.
[2023-09-06] MEDS: METOCLOPRAMIDE HCL INJ 10 MG/2 ML VIAL IV PUSH (21:52)
[2023-09-06 22:35] LABS: Troponin I < 0.012 ng/mL (0.000-0.034)
[2023-09-06 22:41] LABS: Influenza A QL RT-PCR Negative (Negative); Influenza B QL RT-PCR Negative (Negative); RSV RNA, RT-PCR Negative (Negative); SARS-CoV-2 RNA PCR Negative (Negative)
--- NOTE | 2023-09-06 23:30 | PM.IMHP ---
H&P: HPI History of Present Illness Date/Time: 09/06/23 23:30 Chief Complaint: Nausea vomiting and diarrhea Narrative: Patient has history of pancreatic cancer status post distal pancreatectomy, he currently follows up with Oncology and has been on oral and infuse chemotherapy in the past 10 days. This was stopped yesterday however patient has been having intractable nausea and vomiting for the past 3 days, there is associated diarrhea he had to use Imodium which helped symptom however the scope was today. He reported associated weakness, no fever chills cough congestion sore throat. He decided to present to the emergency department to be evaluated. Patient was found to be dehydrated lethargic and continued to have nausea despite getting different antiemetic. CT scan of abdomen and pelvis was negative for obstruction or any acute finding that could account for patient's symptoms. Labs show mild leukocytosis, mildly elevated lipase with no significant electrolyte imbalance. I was consulted to admit this patient for observation as he continued to have nausea Review of Systems Review of Systems: All systems reviewed & are unremarkable except as noted in HPI and below PMFSH Past Medical History Medical History Arthritis Hx of appendicitis Hyperlipidemia Hypertension Pancreatic cancer Surgical History Surgical History History of partial pancreatectomy History of splenectomy Family History Family History Mother Family history of osteoarthritis Family history of alcoholism Dementia Father Family history of alcoholism Social History Social History Smoking packs per day: 1 Smoking cigarettes per day: 20.0 Years smoked: 50 Smoking pack-years: 50.00 Smoking status: Current some day smoker Tobacco type: cigarettes Second hand tobacco smoke exposure: Yes Alcohol intake: never Substance use: current Substance use type: marijuana Other substance usage details: REC - 1 harvey PHILLIP Last use: 09/12/22 Do You Feel Safe in your Home?: Yes Lack of Transportation: No Lack of Food: Never True Current Housing: I Have Housing Concerned About Future Housing: No Difficulty Paying Gas/Electric Bills: No Difficulty Paying for Meds: No Currently Unemployed: No Education: High School Diploma/GED Difficulty w/ Childcare or Family Care: No Living arrangements: with family Occupation/Education: retired Gender identity (if verbalized by the patient): Male Spiritual care concerns: No Meds Home Medications and Allergies Home Medications Medication Instructions Recorded Confirmed Type omega 3-ewc-hsh-fish oil 100 1 cap PO DAILY 07/04/22 09/07/23 History mg-160 mg-1,000 mg capsule (Fish Oil) qiupgevp-sy-aqzdh 300 mcg-K 60 1 tablet PO DAILY 08/14/23 09/07/23 History mcg-lycop 600 mcg-lutein 300 mcg tablet (Centrum Silver Men) lisinopril 20 2 tablet PO DAILY 09/07/23 09/07/23 History mg-hydrochlorothiazide 12.5 mg tablet sertraline 50 mg tablet 50 mg PO DAILY 09/07/23 09/07/23 History simvastatin 20 mg tablet 20 mg PO DAILY 09/07/23 09/07/23 History tamsulosin 0.4 mg capsule 0.4 mg PO DAILY 09/07/23 09/07/23 History Allergies Allergy/AdvReac Type Severity Reaction Status Date / Time No Known Allergies Allergy Mild Verified 09/03/23 13:59 Vital Signs Vital Signs - 24 hr 09/06/23 17:21 09/06/23 20:16 09/06/23 21:21 Temperature 98 F Pulse Rate 82 82 71 Respiratory Rate 16 14 19 Blood Pressure 129/90 135/87 104/70 Pulse Oximetry 100 98 97 Oxygen Delivery Room Air Exam Narrative: General: Alert and oriented x4 weak, not in distress, dry oral mucosa HEENT: Normocephalic atraumatic
[2023-09-06 23:36] VITALS: BP 98/69; PULSE 66; RESP 16; O2SAT 95
[2023-09-07 00:49] VITALS: BP 98/64; PULSE 67; RESP 15; O2SAT 96
[2023-09-07 02:30] VITALS: BP 120/71; PULSE 68; RESP 13; TEMP 36.4; O2SAT 98; BMI 22.4
[2023-09-07] MEDS: SODIUM CHLORIDE 0.9% IV 1,000 ML 125 ML IV CONT ×2 (02:57→11:10)
[2023-09-07] MEDS: MORPHINE SULFATE (*CRX) 4 MG/ML INJ IV PUSH ×5 (02:57→22:44)
[2023-09-07 05:49] VITALS: BP 106/67; PULSE 60; RESP 12; TEMP 36.8; O2SAT 99
[2023-09-07] MEDS: SIMVASTATIN 20 MG TABLET PO (08:06)
[2023-09-07] MEDS: OMEGA 3 POLYUNSAT FATTY ACIDS 1 GM CAP PO (08:06)
[2023-09-07] MEDS: OPTI-GEN TAB 1 TABLET PO (08:06)
[2023-09-07] MEDS: TAMSULOSIN HCL 0.4 MG CAPSULE PO (08:06)
[2023-09-07] MEDS: lisinopriL 20 MG TABLET 40 MG PO (08:06)
[2023-09-07] MEDS: PANTOPRAZOLE SODIUM IV 40 MG VIAL IV PUSH (08:06)
[2023-09-07] MEDS: hydroCHLOROthiazide 25 MG TABLET PO (08:06)
[2023-09-07 10:18] LABS: Basophils Percent Auto 0.3 % (0.2-1.2); Eosinophils Absolute Auto 0.1 K/mm3 (0-0.3); Eosinophils Percent Auto 1.8 % (0-4.4); Hematocrit 33.9 % (42.0-52.0); Hemoglobin 11.4 g/dL (14.0-18.0); Immature Granulocyte Absolute 0.02 K/mm3 (0.00-0.031); Immature Granulocyte Percent A 0.3 % (0-0.5); Lymphocytes Absolute Auto 3.52 K/mm3 (0.9-3.2); Lymphocytes Percent Auto 48.8 % (18.3-44.2); Mean Corpuscular HGB Conc 33.6 g/dl (32-36); Mean Corpuscular Hemoglobin 34.2 pg (26-34); Mean Corpuscular Volume 101.8 fl (80-100); Mean Platelet Volume 8.5 fl (7.4-10.4); Monocytes Absolute Auto 0.1 K/mm3 (0.1-0.6); Monocytes Percent Auto 0.7 % (2.6-8.5); Neutrophils Absolute Auto 3.5 K/mm3 (1.3-6.7); Neutrophils Percent Auto 48.1 % (45.5-73.1); Platelet Count Result 200 k/mm3 (150-375); Red Blood Count 3.33 M/mm3 (4.6-6.20); Red Cell Distribution Width 13.1 % (11.5-14.5); White Blood Count 7.2 K/mm3 (4.5-10.0)
[2023-09-07 10:28] LABS: Anion Gap 3 mmol/L (8-16); Blood Urea Nitrogen 19 mg/dL (9-20); Calcium 8.6 mg/dL (8.4-10.2); Carbon Dioxide 28 mmol/L (22-30); Chloride 102 mmol/L (98-107); Estimated CRCL calculation 90 ml/min; Estimated Glomerular Filt Rate > 60; Glucose 107 mg/dL (65-110); Potassium 3.2 mmol/L (3.4-5.0); Sodium 133 mmol/L (137-145)
--- NOTE | 2023-09-07 10:32 | PDONCCN ---
HPI - Date of Consult Date/Time: 09/07/23 16:37 <Lloyd Olmos - 09/07/23 16:39> 09/07/23 10:32 <Suzanna Doherty - 09/07/23 10:37> Requesting Physician: Wendy Willis MD <Lloyd Olmos - 09/07/23 16:39> Wendy Willis MD <Suzanna Doherty - 09/07/23 10:37> Primary Care Provider: Orion Frankel PA-C <Lloyd Olmos - 09/07/23 16:39> Orion Frankel PA-C <Suzanna Doherty - 09/07/23 10:37> - Consult Narrative Reason for consult: N/V/D d/t pancreatic cancer <Suzanna Doherty - 09/07/23 10:37> Narrative: Tommy Zhao is a 68 year old male <Lloyd Olmos - 09/07/23 16:39> Tommy Zhao is a 68 year old male with a past medical history of Stage I B, 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 He recently started adjuvant chemotherapy with Gemzar and Xeloda on August 27. He has received 2 rounds of Gemzar and has taken 10 pills of Xeloda so far. He called the office on 08/24 with constipation and we suggested he took a stool softener which he did. He then called the office 09/05 with issues with diarrhea and vomiting. He was admitted to the hospital for increased weakness, almost passing out, intractable nausea/vomiting and diarrhea. He took an Imodium on Sunday and has not had a bowel movement since. He was able to eat breakfast this morning without issue. He has received multiple rounds of Zofran and is on IVF. He reports feeling much better today and is happy he ate a meal without vomiting. He is having some epigastric pain but thinks it is gas related. He is concerned about continuing treatment and would like to know what his prognosis is if he stops treatment. He would like to have a quality of life without these side effects of chemo and is worried about not being able to provide for his family. He is also wondering if he should continue to hold Xeloda. He has a scheduled Gemzar infusion for Sunday is unsure if he should go to that appointment. <Suzanna Doherty 09/07/23 10:37> Review of Systems - Review of Systems All systems reviewed & are unremarkable except as noted in HPI and bel <ChasSuzanna 09/07/23 10:51> PMFSH Medical History: Medical History (Last Reviewed 09/06/23 @ 23:32 by Manda Brown PA-C) Arthritis Hx of appendicitis Hyperlipidemia Hypertension Pancreatic cancer <Nickolas,Lloyd BoldenJodie - 09/07/23 16:39> Medical History (Last Reviewed 09/06/23 @ 23:32 by Manda Brown PA-C) Arthritis Hx of appendicitis Hyperlipidemia Hypertension Pancreatic cancer <ChasSuzanna 09/07/23 10:37> Surgical History: Surgical History (Last Reviewed 09/06/23 @ 23:32 by Manda Brown PA-C) History of partial pancreatectomy History of splenectomy <Nickolas,Llodymaddison Bob - 09/07/23 16:39> Surgical History (Last Reviewed 09/06/23 @ 23:32 by Manda Brown PA-C) History of partial pancreatectomy History of splenectomy <ChasSuzanna 09/07/23 10:37> Family History: Family History (Last Reviewed 09/06/23 @ 23:32 by Manda Brown PA-C) Mother Family history of osteoarthritis Family history of alcoholism Dementia Father Family history of alcoholism <Nickolas,Lloydmaddison Bob - 09/07/23 16:39> Family History (Last Reviewed 09/06/23 @ 23:32 by Manda Brown PA-C) Mother Family history of osteoarthritis Family history of alcoholism Dementia Father Family history of alcoholism <Rylan Dohertyne 09/07/23 10:37> - Social History Social History: Social History (Last Reviewed 09/06/23 @ 23:32 by Manda Brown PA-C) Gender Identity: Gender identity (if verbalized by the patient): Male Alcohol Use: Alcohol intake: never Substance Use: Substance use: current Substance use type: mar
[2023-09-07 10:34] VITALS: BMI 22.4
[2023-09-07] MEDS: CENTRAL LINE FLUSH 10 ML IV PUSH ×2 (12:45→22:45)
[2023-09-07 14:00] VITALS: BP 121/78; PULSE 76; RESP 16; TEMP 36.9; O2SAT 99
--- NOTE | 2023-09-07 15:13 | PM.IMPN ---
Progress Note: A&P Assessment and Plan (1) Intractable nausea and vomiting: Code(s): R11.2 - Nausea with vomiting, unspecified Status: Acute Assessment and Plan: Patient currently on chemotherapy and is receiving Gemzar and Xeloda. He is currently on his 2nd round of these medications. He was given Reglan and Zofran which is helped considerably with his nausea and vomiting. He has been able to hold clear liquid diet down and is going to try and advance his diet to regular food for dinner and see how that goes Continue IV fluids tonight May benefit from GI cocktail if Dr. Olmos has a personal one that he uses? If patient tolerating food and fluid without any more nausea and vomiting he might be able to go home tomorrow (2) Pancreatic cancer: Qualifiers: Pancreatic malignancy location: tail of pancreas Qualified Code(s): C25.2 - Malignant neoplasm of tail of pancreas Code(s): C25.9 - Malignant neoplasm of pancreas, unspecified Status: Acute Assessment and Plan: Patient diagnosed in the fall of last year. He had a resection of the tail of his pancreas and he states that he had been told that there were clean margins at that time. He was started on 6 months of chemotherapy shortly after the resection for precautionary purposes is supposed to get radiation as well following the chemotherapy for an additional 16 weeks. he is followed by Dr. Olmos (3) Adverse effect of chemotherapy: Code(s): T45.1X5A - Adverse effect of antineoplastic and immunosuppressive drugs, initial encounter Status: Acute Assessment and Plan: See above (4) Hypertension: Qualifiers: Hypertension type: essential hypertension Qualified Code(s): I10 - Essential (primary) hypertension Code(s): I10 - Essential (primary) hypertension Status: Chronic Assessment and Plan: Patient restarted on hydrochlorothiazide and lisinopril (5) Dyslipidemia: Code(s): E78.5 - Hyperlipidemia, unspecified Status: Acute Assessment and Plan: Restart simvastatin and omega-3 Time Spent With Patient Time with patient: Greater than 35 minutes Subjective Date/time seen: 09/07/23 15:13 Interval history: This is a 68 year old male patient who presented to the hospital on 09/06/23 with intractable nausea, vomiting, and diarrhea. Patient was recently diagnosed with pancreatic cancer in the tail of his pancreas. He had the tail of his pancreas resected this past fall. He he recently started chemo which is likely contributing to his presenting symptoms. Work up in the hospital includes an abdomen/pelvis CT which was negative. Labs that shown hgb 11.4, Hct 33.9, Na+ 133, K+ 3.2, Lipase 383, lactic acid 1.5, troponin negative. Respiratory panel negative for flu, rsv, covid. UA shown trace ketones, specific gravity 1.049. Blood cultures obtained and showing no growth on preliminary. He was given 2L NS, Zofran, Pepcid, Morphine and Reglan while in the ER. Oncology was consulted. On examination today patient is alert oriented x3, lying in the bed. Vital signs are stable, he is on room air, he has remained afebrile. Patient denies any nausea, vomiting, shortness of breath, chest pain, fever, chills, headache. Patient endorses abdominal pain, and he goes between diarrhea and constipation on a regular basis. Patient contemplating whether he would like to continue with treatments or discontinue them. He has a lot of questions for the oncology team and will be seen by Dr. Olmos today. Review of Systems Review of Systems: All systems reviewed & are unremarkable except as noted in HPI and below Constitutional: Constitutional: Reports as per HPI and Reports no additional constitutional complaints Eyes: Eyes: Reports as per HPI and Reports no additional eye complaints ENT: Reports system reviewed and no additional complaints, except as documented and Reports as per HPI Cardiov
[2023-09-07 20:00] VITALS: O2SAT 96
[2023-09-07] MEDS: diphenhydrAMINE HCl CAP 25 MG CAPSULE PO (20:58)
[2023-09-07 22:00] VITALS: BP 136/83; PULSE 61; RESP 14; TEMP 36.2; O2SAT 96
[2023-09-07] MEDS: polyethylene glycoL 3350 17 GM POWD.PACK PO (22:50)
[2023-09-08] MEDS: CENTRAL LINE FLUSH 10 ML IV PUSH (05:30)
[2023-09-08 06:00] VITALS: BP 145/84; PULSE 65; RESP 16; TEMP 36.5; O2SAT 96
--- NOTE | 2023-09-08 08:51 | PM.DS ---
DS: Admitting Diagnosis Discharge Date 09/08/23 Admitting Diagnosis Intractable nausea and vomiting Pancreatic cancer Adverse effect of chemotherapy DS: Discharge Diagnosis Discharge Diagnosis (1) Intractable nausea and vomiting: Code(s): R11.2 - Nausea with vomiting, unspecified Status: Acute (2) Pancreatic cancer: Qualifiers: Pancreatic malignancy location: tail of pancreas Qualified Code(s): C25.2 - Malignant neoplasm of tail of pancreas Code(s): C25.9 - Malignant neoplasm of pancreas, unspecified Status: Acute (3) Adverse effect of chemotherapy: Code(s): T45.1X5A - Adverse effect of antineoplastic and immunosuppressive drugs, initial encounter Status: Acute (4) Hypertension: Qualifiers: Hypertension type: essential hypertension Qualified Code(s): I10 - Essential (primary) hypertension Code(s): I10 - Essential (primary) hypertension Status: Chronic (5) Dyslipidemia: Code(s): E78.5 - Hyperlipidemia, unspecified Status: Acute DS: Summary Hospital Course Reason for hospitalization: Intractable nausea and vomiting Pancreatic cancer Adverse effect of chemotherapy Hospital Course: 09/07/23: This is a 68 year old male patient who presented to the hospital on 09/06/23 with intractable nausea, vomiting, and diarrhea.? Patient was recently diagnosed with pancreatic cancer in the tail of his pancreas.? He had the tail of his pancreas resected this past fall.? He he recently started chemo which is likely contributing to his presenting symptoms.? Work up in the hospital includes an abdomen/pelvis CT which was negative. Labs that shown hgb 11.4, Hct 33.9, Na+ 133, K+ 3.2, Lipase 383, lactic acid 1.5, troponin negative. Respiratory panel negative for flu, rsv, covid. UA shown trace ketones, specific gravity 1.049. Blood cultures obtained and showing no growth on preliminary. He was given 2L NS, Zofran, Pepcid, Morphine and Reglan while in the ER. Oncology was consulted. On examination today patient is alert oriented x3, lying in the bed.? Vital signs are stable, he is on room air, he has remained afebrile.? Patient denies any nausea, vomiting, shortness of breath, chest pain, fever, chills, headache.? Patient endorses abdominal pain, and he goes between diarrhea and constipation on a regular basis.? Patient contemplating whether he would like to continue with treatments or discontinue them.? He has a lot of questions for the oncology team and will be seen by Dr. Olmos today. 09/08/23: On examination today patient is alert and oriented x3, lying in the bed. He has increased his diet to regular food and has been tolerating that without any nausea or vomiting. Labs today revealed RBC 3.62, Hgb 12.4, Hct 36.4, Na+ 134, K+ 3.4, Mag 1.7. He is stable for discharge today. He will follow up with Oncology next week. Final diagnosis: Intractable nausea and vomiting, pancreatic cancer, adverse effect of chemotherapy Status at Discharge Cognitive/behavioral status at discharge: Alert and oriented x3 Functional status at discharge: independent ambulation Overall status at discharge: patient is progressing back to baseline Time Spent with Patient Time attestation: Total time spent providing and/or coordinating discharge services: Time spent: Greater than 30 minutes Exam Narrative: General: In no acute distress, well nourished Head: atraumatic, no encephalopathy Eyes: EOMI, PERRLA, sclera clear ENT: moist mucous membranes, nasal passages clear Neck: supple, no JVD, no adenopathy, trachea midline Cardiac: Normal S1 and S2. RRR. No murmur, gallops or friction rubs, peripheral pulses intact. Respiratory: Lungs clear to auscultation, no adventitious lung sounds Gastrointestinal: soft, non-distended, tender to palpation in left upper quadrant right upper quadrant, normoactive bowel sounds. : voiding without difficulty clear yellow urine Extremities: moves all extremi
[2023-09-08] MEDS: SERTRALINE HCL 50 MG TABLET PO (09:03)
[2023-09-08] MEDS: hydroCHLOROthiazide 25 MG TABLET PO (09:03)
[2023-09-08] MEDS: OPTI-GEN TAB 1 TABLET PO (09:03)
[2023-09-08] MEDS: OMEGA 3 POLYUNSAT FATTY ACIDS 1 GM CAP PO (09:03)
[2023-09-08] MEDS: lisinopriL 20 MG TABLET 40 MG PO (09:03)
[2023-09-08] MEDS: SIMVASTATIN 20 MG TABLET PO (09:03)
[2023-09-08] MEDS: TAMSULOSIN HCL 0.4 MG CAPSULE PO (09:03)
[2023-09-08] MEDS: polyethylene glycoL 3350 17 GM POWD.PACK PO (09:09)
[2023-09-08] MEDS: CENTRAL LINE FLUSH 20 ML IV PUSH (09:53)
[2023-09-08] MEDS: PANTOPRAZOLE 40 MG TABLET PO (10:00)
[2023-09-08 10:04] LABS: Basophils Percent Auto 0.1 % (0.2-1.2); Eosinophils Percent Auto 0.4 % (0-4.4); Hematocrit 36.4 % (42.0-52.0); Hemoglobin 12.4 g/dL (14.0-18.0); Immature Granulocyte Absolute 0.02 K/mm3 (0.00-0.031); Immature Granulocyte Percent A 0.3 % (0-0.5); Lymphocytes Absolute Auto 2.94 K/mm3 (0.9-3.2); Lymphocytes Percent Auto 42.4 % (18.3-44.2); Mean Corpuscular HGB Conc 34.1 g/dl (32-36); Mean Corpuscular Hemoglobin 34.3 pg (26-34); Mean Corpuscular Volume 100.6 fl (80-100); Mean Platelet Volume 8.4 fl (7.4-10.4); Monocytes Absolute Auto 0.1 K/mm3 (0.1-0.6); Monocytes Percent Auto 0.9 % (2.6-8.5); Neutrophils Absolute Auto 3.9 K/mm3 (1.3-6.7); Neutrophils Percent Auto 55.9 % (45.5-73.1); Platelet Count Result 197 k/mm3 (150-375); Red Blood Count 3.62 M/mm3 (4.6-6.20); Red Cell Distribution Width 12.8 % (11.5-14.5); White Blood Count 6.9 K/mm3 (4.5-10.0)
[2023-09-08 10:13] LABS: Alanine Aminotransferase 32 U/L (6-50); Albumin Level 3.1 g/dL (3.5-5.1); Alkaline Phosphatase 74 U/L (38-126); Anion Gap 4 mmol/L (8-16); Aspartate Amino Transferase 35 U/L (17-59); Bilirubin,Total 0.7 mg/dL (0.2-1.3); Blood Urea Nitrogen 14 mg/dL (9-20); Calcium 8.8 mg/dL (8.4-10.2); Carbon Dioxide 30 mmol/L (22-30); Chloride 100 mmol/L (98-107); Estimated CRCL calculation 103 ml/min; Estimated Glomerular Filt Rate > 60; Glucose 98 mg/dL (65-110); Magnesium 1.7 mg/dL (1.6-2.3); Potassium 3.4 mmol/L (3.4-5.0); Sodium 134 mmol/L (137-145)
[2023-09-08] MEDS: HEPARIN SODIUM LOCK FLUSH 500 UNITS/5 ML SYRINGE IV PUSH (10:49)
== END 2023-09-08 11:10 | disposition home or self-care (01) ==
LOC: ANHED 23:36 → ANH3MEDSUR 09-07 08:39
PROVIDERS: Nurse Practitioner Acute Care; Admitting Provider Student in an Organized Health Care Education/Training Program; Emergency Provider Physician Assistant; PCP Physician Assistant; Visit Provider Student in an Organized Health Care Education/Training Program
DX: R11.2 Nausea with vomiting, unspecified (principal); R19.7 Diarrhea, unspecified; C25.2 Malignant neoplasm of tail of pancreas; T45.1X5A Adverse effect of antineoplastic and immunosuppressive drugs, initial encounter; Z90.411 Acquired partial absence of pancreas; Z90.81 Acquired absence of spleen; I10 Essential (primary) hypertension; E78.5 Hyperlipidemia, unspecified; F17.210 Nicotine dependence, cigarettes, uncomplicated; F12.90 Cannabis use, unspecified, uncomplicated; Z79.899 Other long term (current) drug therapy; Z20.822 Contact with and (suspected) exposure to COVID-19
CPT/HCPCS: 36415; 74177; 80048; 80053; 81003; 83605; 83690; 83735; 84484; 85025; 87040; 87637; 93005; 96361; 96374; 96375; 96376; 99285; A9270; C9113; G0378; J2270; J2405; J2765; J7030; Q9967

== ENCOUNTER 2023-09-26 10:27 | Inpatient (IN) | payer MEDICARE, SELFPAY ==
[2023-09-26] VITALS (28 sets, daily range): BP systolic 105–131; BP diastolic 62–84; PULSE 60–79; RESP 0–24; TEMP 36.4; O2SAT 96–100
--- NOTE | ~2023-09-26 | CT_ITS ---
CT of the Abdomen and Pelvis: Indication: Epigastric pain, pancreatic cancer Technique: 2.5 mm axial scans were obtained through the abdomen and pelvis following intravenous adm inistration of 100 cc of Omnipaque 350. Dose reduction technique was used on this scan by utilizing a utomated exposure control and iterative reconstruction technique. The dose-length product (DLP) was 3 82.10 mGy-cm. COMPARISON: 09/06/2023 Findings: Scans through the lung bases are unremarkable. Stable cystic lesions in the liver noted. Spleen not visualized. The gallbladder, adrenals and kidney s are within normal limits. Patient is status post resection of the distal pancreas. There are athero sclerotic calcifications of the aorta. No lymphadenopathy. No bowel obstruction or bowel wall thickening. There is no evidence to suggest acute appendicitis. Images through the pelvis were performed. Urinary bladder unremarkable. Prostate gland enlarged. No a scites. Impression: No acute abnormality evident. Status post distal pancreatectomy. Enlarged prostate gland. Reviewed, dictated and finalized at location . NT SERVICE SUPERVISOR Impression: No acute abnormality evident. Status post distal pancreatectomy. Enlarged prostate gland.
--- NOTE | ~2023-09-26 | XR_ITS ---
EXAMINATION: XR abdomen obstructive series DATE: 09/28/2023 17:16 INDICATION: Abdominal pain TECHNIQUE: Frontal supine and upright views of the abdomen were obtained. COMPARISON: CT abdomen pelvis dated 09/06/2023 FINDINGS: Tip of a central venous catheter at the superior cavoatrial junction. There are some air-fluid levels within the colon consistent with nonspecific diarrhea. No dilated loops of bowel identified. No pneu matosis or free intraperitoneal gas. Mild linear discoid atelectasis/scarring in the bilateral lower lungs. There are also few scattered small calcified pulmonary nodules consistent with old granulomato us disease. Heart size is normal. IMPRESSION: 1. Fluid in the colon consistent with nonspecific diarrhea. No free intraperitoneal gas or dilated g as-filled loops of bowel to suggest obstruction. Reviewed, dictated and finalized at location A. AL MEDIA MARKETING ANALYST IMPRESSION: 1. Fluid in the colon consistent with nonspecific diarrhea. No free intraperit garcia gas or dilated gas-filled loops of bowel to suggest obstruction.
--- NOTE | ~2023-09-26 | XR_ITS ---
XR chest 1V DATE: 09/26/2023 12:10 INDICATION: Fever. Nausea and vomiting. TECHNIQUE: AP chest COMPARISON: 08/20/2023 portable AP chest FINDINGS: Heart size is within normal range. There is aortic calcification. No hilar or mediastinal enlargement. No pulmonary infiltrate or consolidation, pulmonary vascular congestion or pleural effusion or pneumo thorax. Right Port-A-Cath catheter tip is situated near superior cavoatrial junction. Osteopenia. IMPRESSION: No active cardiopulmonary disease Reviewed, dictated and finalized at location B. OYEE REPRESENTATIVE
--- NOTE | ~2023-09-26 | CT_ITS ---
EXAMINATION: CT abdomen pelvis wo con DATE: 09/29/2023 21:25 INDICATION: persistent abd pain TECHNIQUE: Computed tomography (CT) of the abdomen and pelvis was performed without intravenous contr ast. Automated exposure control and iterative reconstruction technique were employed. The dose-length product was 346.28 mGy-cm. COMPARISON: February 24, 2024. FINDINGS: Lower thorax: Coronary artery calcification. Granulomatous calcifications. Bibasilar scar. Bibasilar atelectasis. Small bilateral pleural effusions. Liver: Multiple hepatic cysts. Biliary/Gallbladder: Elongated gallbladder, without stones or inflammatory change. No bile duct dilat ion. Pancreas: Status post partial pancreatectomy. Spleen: Surgically absent. Adrenals:No mass. Kidneys: No suspicious mass, obstructing stone, or hydronephrosis. GI tract: Prominent fluid within the colon. No small or large bowel dilation. Normal appendix. Mesentery/Peritoneum: Small volume ascites. No retroperitoneal mass or free air. Mesenteric stranding in the upper abdomen surrounding the residual pancreas and gastric body. Retroperitoneum: No mass. Atherosclerotic abdominal aortic and/or arterial calcifications. Pelvis: Pelvic organs are within normal limits. Soft Tissues: Soft tissues and body wall unremarkable. Bones: No acute osseous finding. IMPRESSION: Small bilateral pleural effusions. Perigastric and peripancreatic inflammation. Related to gastritis or pancreatitis. Correlate with pancreatic labs. Distended gallbladder, without stones or inflammatory change. Correlate with symptoms of right upper quadrant pain and biliary labs. Small volume ascites. Mostly fluid-filled colon, as can be seen with diarrheal illness. Reviewed, dictated and finalized at location K. ONAL LINES INSURANCE AGENT IMPRESSION: Small bilateral pleural effusions. Perigastric and peripancreatic inflammation. Related to gastritis or pancreatitis. Correlate with pancreatic labs. Distended gallbladder, without stones or inflammatory change. Correlate with sy mptoms of right upper quadrant pain and biliary labs. Small volume ascites. Mostly fluid-filled colon, as can be seen with diarrheal illness.
--- NOTE | ~2023-09-26 | US_ITS ---
EXAMINATION: US right upper quadrant DATE: 09/27/2023 08:37 INDICATION: Pancreatitis. TECHNIQUE: Multiple grayscale and Doppler ultrasound images of the abdomen were obtained. COMPARISON: CT 09/26/2023 FINDINGS: The visualized portion of the head of the pancreas is normal. There are cysts in the liver measuring up to 3.4 cm. There is normal flow in main portal vein. The gallbladder is normal in size. No gallstones or gallbladder wall thickening. There was no sonographic Stroud sign. The common duct i s normal and measures 3 mm. IMPRESSION: 1. No cholelithiasis. Reviewed, dictated and finalized at location A. ANICAL APPLICATIONS ENGINEER IMPRESSION: 1. No cholelithiasis.
[2023-09-26 10:40] LABS: Glucose Point of Care 101 mg/dl (65-105)
--- NOTE | 2023-09-26 10:51 | ECG_ITS ---
Measurements Intervals [place] Rate: 62 P: 71 [place]: 183 QRS: -8 QRSD: 90 T: 61 QT: 381 QTc: 387 Interpretive Statements SINUS RHYTHM NONSPECIFIC T-WAVE ABNORMALITY ABNORMAL ECG COMPARED TO ECG 09/06/2023 21:50:48 T-WAVE ABNORMALITY NOW PRESENT Electronically Signed On 09-26-2023 11:55:14 TERMINAL MAKE UP OPERATOR by Mannie Way M.D.
--- NOTE | 2023-09-26 10:59 | ED.NAVMDI ---
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 Patient states he went to his oncologist's office, Dr. Olmos, 2 days ago for his chemotherapy infusions. He did not receive his infusion because of his N/V/D and pain in was stopped on his chemotherapy pills. He states he has had persistent vomiting and diarrhea since. Reports multiple episodes of watery profuse diarrhea daily. States he had about 12 episodes last night. Denies melena or hematochezia, denies hematemesis, chest pain or shortness of breath. He does endorse a fever of 100.2 2 days ago in a mild intermittent cough. The patient was admitted on 09/06/2023 for intractable nausea and vomiting secondary to chemotherapy. He was discharged on 09/08. <Kia Raya PA-C - Last Filed: 09/26/23 14:29> Related Data Home medications: Home Medications Medication Instructions Recorded Confirmed omega 6-nwe-tye-fish oil 100 1 cap PO DAILY 07/04/22 09/26/23 mg-160 mg-1,000 mg capsule (Fish Oil) wxsprivf-ih-hrafa 300 mcg-K 60 1 tablet PO DAILY 08/14/23 09/26/23 mcg-lycop 600 mcg-lutein 300 mcg tablet (Centrum Silver Men) lisinopril 20 2 tablet PO DAILY 09/07/23 09/26/23 mg-hydrochlorothiazide 12.5 mg tablet sertraline 50 mg tablet 50 mg PO DAILY 09/07/23 09/26/23 simvastatin 20 mg tablet 20 mg PO DAILY 09/07/23 09/26/23 tamsulosin 0.4 mg capsule 0.4 mg PO DAILY 09/07/23 09/26/23 ondansetron 8 mg disintegrating 8 mg PO Q8H PRN Nausea And Vomiting 09/26/23 09/26/23 tablet prochlorperazine maleate 10 mg 10 mg PO Q8H PRN Nausea And 09/26/23 09/26/23 tablet Vomiting <Kia Raya PA-C - Last Filed: 09/26/23 14:29> Allergies/Adverse reactions: Allergies Allergy/AdvReac Type Severity Reaction Status Date / Time No Known Allergies Allergy Mild Verified 09/03/23 13:59 <Kia Raya PA-C - Last Filed: 09/26/23 14:29> Review of Systems Review of Systems: CONSTITUTIONAL: See HPI EYES: Denies visual changes, redness, or discharge. ENT: Denies rhinorrhea, congestion, sore throat, or otalgia. CARDIOVASCULAR: Denies chest pain, palpitations, or edema. RESPIRATORY: See HPI GASTROINTESTINAL: See HPI GENITOURINARY: Denies dysuria or hematuria. SKIN: Denies rash or itching. MUSCULOSKELETAL: Denies back pain, joint pain, or myalgia. NEUROLOGIC: Denies headache, numbness, or weakness. PSYCHIATRIC: Denies anxiety or depression. <Kia Raya PA-C - Last Filed: 09/26/23 14:29> [facility] Past Medical History Medical History: Medical History Arthritis Hx of appendicitis Hyperlipidemia Hypertension Pancreatic cancer <Kia Raya PA-C - Last Filed: 09/26/23 14:29> Surgical History Surgical History: Surgical History History of partial pancreatectomy History of splenectomy <Kia Raya PA-C - Last Filed: 09/26/23 14:29> Family History Family History: Family History Mother Family history of osteoarthritis Family history of alcoholism Dementia Father Family history of alcoholism <Kia Raya PA-C - Last Filed: 09/26/23 14:29> Social History Social History: Social History
[2023-09-26] MEDS: SODIUM CHLORIDE 0.9% IV 1,000 ML 999 ML IV CONT ×3 (11:04→13:46)
[2023-09-26] MEDS: ONDANSETRON INJ 4 MG/2 ML VIAL IV PUSH (11:04)
[2023-09-26] MEDS: MORPHINE SULFATE (*CRX) 4 MG/ML INJ IV PUSH ×2 (11:04→20:21)
[2023-09-26] MEDS: PANTOPRAZOLE SODIUM IV 40 MG VIAL IV PUSH (11:04)
[2023-09-26] MEDS: HYDROmorphone HCL INJ (*CRX) 1 MG/ML SYR IV PUSH ×4 (11:24→17:04)
[2023-09-26 11:39] LABS: Basophils Absolute Auto 0.1 K/mm3 (0.0-0.1); Basophils Percent Auto 0.5 % (0.2-1.2); Eosinophils Absolute Auto 0.2 K/mm3 (0-0.3); Hematocrit 36.4 % (42.0-52.0); Immature Granulocyte Absolute 0.15 K/mm3 (0.00-0.031); Immature Granulocyte Percent A 1.2 % (0-0.5); Lymphocytes Absolute Auto 4.29 K/mm3 (0.9-3.2); Lymphocytes Percent Auto 35.4 % (18.3-44.2); Mean Corpuscular HGB Conc 35.7 g/dl (32-36); Mean Corpuscular Hemoglobin 35.8 pg (26-34); Mean Corpuscular Volume 100.3 fl (80-100); Mean Platelet Volume 8.9 fl (7.4-10.4); Monocytes Absolute Auto 1.4 K/mm3 (0.1-0.6); Monocytes Percent Auto 11.5 % (2.6-8.5); Neutrophils Percent Auto 49.4 % (45.5-73.1); Nucleated Red Blood Cells Perc 0.2 % (0.0-0.2); Platelet Count Result 664 k/mm3 (150-375); Red Blood Count 3.63 M/mm3 (4.6-6.20); Red Cell Distribution Width 15.2 % (11.5-14.5); White Blood Count 12.1 K/mm3 (4.5-10.0)
[2023-09-26 11:47] LABS: Alanine Aminotransferase 29 U/L (6-50); Albumin Level 3.8 g/dL (3.5-5.1); Alkaline Phosphatase 114 U/L (38-126); Anion Gap 5 mmol/L (8-16); Aspartate Amino Transferase 45 U/L (17-59); Bilirubin,Total 0.5 mg/dL (0.2-1.3); Blood Urea Nitrogen 17 mg/dL (9-20); Calcium 9.3 mg/dL (8.4-10.2); Carbon Dioxide 27 mmol/L (22-30); Chloride 105 mmol/L (98-107); Estimated CRCL calculation 99 ml/min; Estimated Glomerular Filt Rate > 60; Glucose 94 mg/dL (65-110); Lactic Acid Reflex 1.3 mmol/L (0.7-2.0); Lipase 1153 U/L (23-300); Potassium 3.1 mmol/L (3.4-5.0); Sodium 137 mmol/L (137-145)
[2023-09-26 11:57] LABS: Troponin I < 0.012 ng/mL (0.000-0.034)
[2023-09-26 12:11] LABS: Magnesium 1.6 mg/dL (1.6-2.3)
[2023-09-26 12:21] LABS: Influenza A QL RT-PCR Negative (Negative); Influenza B QL RT-PCR Negative (Negative); RSV RNA, RT-PCR Negative (Negative); SARS-CoV-2 RNA PCR Negative (Negative)
[2023-09-26] MEDS: POTASSIUM CHLORIDE 20 MEQ PACKET (FOR LIQUID) 40 MEQ PO (12:21)
[2023-09-26 13:30] LABS: Appearance Urine Clear (Clear); Bacteria Urine None Seen /hpf; Bilirubin Urine Negative (Negative); Blood Urine Negative (Negative); Color Urine Yellow (Yellow); Glucose Urine UA Negative (Negative); Ketones Urine Negative (Negative); Leukocyte Esterase Ur Negative LEU/UL (Negative); Nitrate Urine Negative (Negative); Non Pathogenic Casts 0-2; Protein Urine Trace mg/dL (Negative); RBC Urine 0-2 /hpf (0-2); Squamous Epithelial Cell Urine None seen /hpf (Few); Urobilinogen Urine 0.2 mg/dL (<2.0); WBC Urine 0-5 /hpf; pH Urine 5.5 (5.0-9.0)
[2023-09-26 13:35] LABS: Specific Grav Ur 1.092 (1.001-1.035)
[2023-09-26 13:36] LABS: Add Urine Microscopic? YES
[2023-09-26 14:17] LABS: Toxigenic C. Diff NEGATIVE (NEGATIVE)
--- NOTE | 2023-09-26 18:30 | ADMGEN ---
This patient, Tommy Zhao, was admitted to [facility] Surg Room 317-01. Patient/family oriented to hospital policies and general routines including ID bracelet, bed and alarms, visiting hours, pain management, procedures, bathroom and other care routines, personal items, smoking policy, room service/diet, and visiting hours. Information on how to activate the Rapid Response Team has been discussed. Patient/Family are encouraged to report perceived risks to care and to ask questions if they do not understand what they are told or what they should do.
--- NOTE | 2023-09-26 20:27 | PM.IMHP ---
H&P: HPI History of Present Illness Date/Time: 09/26/23 20:27 Chief Complaint: Abdominal Pain Narrative: 68 y/o M presents here with nausea, vomiting, diarrhea, and epigastric pain with PMH of pancreatic cancer (currently undergoing chemo and s/p pancreatectomy and splenectomy), HTN, and HLD. Patient has had N/V/D and epigastric pain for the past 3 days. Patient had planned chemo infusion on Sunday, 09/24, but was unable to receive the treatment due to the N/V/D and abdominal discomfort. Follows with [facility] for Oncology care. Chemotherapy oral medications were also discontinued on Sunday. Despite discontinuation patient has continued to experience persistent N/V/D and epigastric pain. Approximately 3-4 episodes of emesis and 8-10 episodes of diarrhea daily - nonbloody. Episodes of diarrhea were described as forceful and large volume. No current chest pain, SOB, palpitations, syncope, or dizziness. Recorded a fever of 100.2F at home 2 days ago, has since resolved without medication. Was accompanied by night sweats. Reports abdominal pain became significantly more severe late last night and describes it as cramping, radiates into patient's back, and intermittent. Has previously been admitted for intractable vomiting secondary to chemo in Aug and pancreatitis in [facility]. Patient is currently reporting difficulty with pain control, mild nausea, and only 1 episode of diarrhea today. Patient was given diphenoxylate/atropine 2.5 mg tabs for the diarrhea - took 2 doses, one last night and one this morning as well as 1 Imodium this morning with improvement in number of episodes of diarrhea. Initial VS at presentation: 98.5 F, HR 68, RR 18, 115/89, 98% on room air. ED workup showed slight leukocytosis with WBC of 12.1, mild anemia with hgb of 13 (previously 13.6), chemistries unremarkable, troponin negative, lipase 1153, LFTs and total bilirubin WNL. CT of the abdomen and pelvis showed no acute abnormalities. CXR showed no active cardiopulmonary disease. Review of Systems Review of Systems: All systems reviewed & are unremarkable except as noted in HPI and below PMFSH Past Medical History Medical History Arthritis Hx of appendicitis Hyperlipidemia Hypertension Pancreatic cancer Surgical History Surgical History History of partial pancreatectomy History of splenectomy Family History Family History Mother Family history of osteoarthritis Family history of alcoholism Dementia Father Family history of alcoholism Social History Social History Smoking packs per day: 1 Smoking cigarettes per day: 20.0 Years smoked: 50 Smoking pack-years: 50.00 Smoking status: Current every day smoker Tobacco type: cigarettes Second hand tobacco smoke exposure: Yes Alcohol intake: former Substance use: current Substance use type: marijuana Other substance usage details: REC - 1 harvey PHILLIP Last use: 09/23/2023 Do You Feel Safe in your Home?: Yes Lack of Transportation: No Lack of Food: Never True Current Housing: I Have Housing Concerned About Future Housing: No Difficulty Paying Gas/Electric Bills: No Difficulty Paying for Meds: No Currently Unemployed: No Education: Associate Degree Difficulty w/ Childcare or Family Care: No Living arrangements: with family Occupation/Education: retired Gender identity (if verbalized by the patient): Male Spiritual care concerns: No Meds Home Medications and Allergies Home Medications Medication Instructions Recorded Confirmed Type omega 4-xiy-xqn-fish oil 100 1 cap PO DAILY 07/04/22 09/26/23 History mg-160 mg-1,000 mg capsule (Fish Oil) [id number]-nc-hxxub 300 mcg-K 60 1 tablet PO DAILY
[2023-09-26] MEDS: LACTATED RINGERS 1,000 ML 100 ML IV CONT (20:54)
[2023-09-26] MEDS: HYDROmorphone HCL INJ (*CRX) 2 MG/ML VIAL 1.5 MG IV PUSH (21:19)
[2023-09-27] MEDS: HYDROmorphone HCL INJ (*CRX) 2 MG/ML VIAL 1.5 MG IV PUSH ×7 (00:47→23:55)
[2023-09-27] MEDS: ONDANSETRON INJ 4 MG/2 ML VIAL IV PUSH ×2 (00:50→09:04)
[2023-09-27 05:32] VITALS: BP 136/77; PULSE 68; RESP 18; TEMP 36.6; O2SAT 95
[2023-09-27 06:24] LABS: Basophils Absolute Auto 0.1 K/mm3 (0.0-0.1); Basophils Percent Auto 0.4 % (0.2-1.2); Eosinophils Absolute Auto 0.3 K/mm3 (0-0.3); Eosinophils Percent Auto 2.7 % (0-4.4); Hematocrit 34.3 % (42.0-52.0); Hemoglobin 11.8 g/dL (14.0-18.0); Immature Granulocyte Percent A 1.6 % (0-0.5); Lymphocytes Percent Auto 35.1 % (18.3-44.2); Mean Corpuscular HGB Conc 34.4 g/dl (32-36); Mean Corpuscular Hemoglobin 35.5 pg (26-34); Mean Corpuscular Volume 103.3 fl (80-100); Mean Platelet Volume 8.7 fl (7.4-10.4); Monocytes Absolute Auto 1.7 K/mm3 (0.1-0.6); Neutrophils Absolute Auto 5.7 K/mm3 (1.3-6.7); Neutrophils Percent Auto 46.2 % (45.5-73.1); Nucleated Red Blood Cells Perc 0.3 % (0.0-0.2); Platelet Count Result 588 k/mm3 (150-375); Red Blood Count 3.32 M/mm3 (4.6-6.20); Red Cell Distribution Width 15.9 % (11.5-14.5); White Blood Count 12.3 K/mm3 (4.5-10.0)
[2023-09-27] MEDS: LACTATED RINGERS 1,000 ML 100 ML IV CONT ×2 (06:30→18:22)
[2023-09-27 06:39] LABS: Alanine Aminotransferase 25 U/L (6-50); Albumin Level 3.1 g/dL (3.5-5.1); Alkaline Phosphatase 97 U/L (38-126); Anion Gap 3 mmol/L (8-16); Aspartate Amino Transferase 30 U/L (17-59); Bilirubin,Total 0.4 mg/dL (0.2-1.3); Blood Urea Nitrogen 10 mg/dL (9-20); Calcium 8.7 mg/dL (8.4-10.2); Carbon Dioxide 26 mmol/L (22-30); Chloride 108 mmol/L (98-107); Estimated CRCL calculation 86 ml/min; Estimated Glomerular Filt Rate > 60; Glucose 79 mg/dL (65-110); Lipase 74 U/L (23-300); Magnesium 1.4 mg/dL (1.6-2.3); Potassium 3.5 mmol/L (3.4-5.0); Sodium 137 mmol/L (137-145)
[2023-09-27] MEDS: lisinopriL 20 MG TABLET 40 MG PO (09:06)
[2023-09-27] MEDS: OPTI-GEN TAB 1 TABLET PO (09:06)
[2023-09-27] MEDS: OMEGA 3 POLYUNSAT FATTY ACIDS 1 GM CAP PO (09:07)
[2023-09-27] MEDS: PANTOPRAZOLE SODIUM IV 40 MG VIAL IV PUSH (09:07)
[2023-09-27] MEDS: SERTRALINE HCL 50 MG TABLET PO (09:07)
[2023-09-27] MEDS: MAGNESIUM SULF 2 GM/WATER 50ML 2 GM/50 ML BAG IVPB (09:07)
[2023-09-27] MEDS: TAMSULOSIN HCL 0.4 MG CAPSULE PO (09:07)
[2023-09-27 11:21] LABS: Glucose Point of Care 65 mg/dl (65-105)
[2023-09-27 11:23] VITALS: BMI 21.4
[2023-09-27 13:41] VITALS: BP 108/67; PULSE 66; RESP 18; TEMP 36.2; O2SAT 94
--- NOTE | 2023-09-27 15:34 | PM.IMPN ---
Progress Note: A&P Assessment and Plan (1) Acute pancreatitis: Qualifiers: Acute pancreatitis complication: no infection or necrosis Pancreatitis type: unspecified pancreatitis type Qualified Code(s): K85.90 - Acute pancreatitis without necrosis or infection, unspecified Code(s): K85.90 - Acute pancreatitis without necrosis or infection, unspecified Status: Acute Assessment and Plan: Patient presents with n/v. Lipase [address] abd/pelvis showing stable cystic lesions in the liver; Spleen not visualized. The gallbladder, adrenals and kidneys are within normal limits. Patient is status post resection of the distal pancreas. There are atherosclerotic calcifications of the aorta.? No lymphadenopathy. No acute abnormality evident. S/p distal pancreatectomy. Enlarged prostate gland. Patient was NPO and given 3L NS bolus and now on LR at 100 mL/hr Pain management: with Dilaudid. Add Tylenol and [place] for lower pain levels. Antiemetics p.r.n. Holding statin Lipase normal on repeat. Passed stone? Related to chemo? - LFTs and total bilirubin WNL so unlikely stone/sludge. Nausea much better and asking for food Start full liquid and advance as tolerated. (2) Pancreatic cancer: Qualifiers: Pancreatic malignancy location: unspecified Qualified Code(s): C25.9 - Malignant neoplasm of pancreas, unspecified Code(s): C25.9 - Malignant neoplasm of pancreas, unspecified Status: Acute Assessment and Plan: As above. On chemo and last chemo transfusion discontinued/held due to his symptoms Oncology consulted and appreciate their input. PT/OT (3) Intractable nausea and vomiting: Code(s): R11.2 - Nausea with vomiting, unspecified Status: Acute Assessment and Plan: Better today after IV fluids and other treatments. Antiemetics available prn Advance diet (4) Diarrhea: Qualifiers: Diarrhea type: unspecified type Qualified Code(s): R19.7 - Diarrhea, unspecified Code(s): R19.7 - Diarrhea, unspecified Status: Acute Assessment and Plan: Diarrhea prior to admission but no BMs here. Imodium ordered but has not required this. Suspect this is secondary to pancreatitis/chemo treatments Follow Plan DVT Prophylaxis: SCDs Code Status: Full Code Subjective Date/time seen: 09/27/23 15:34 Interval history: 68yo male with pancreatic CA currently undergoing chemo here for abdominal pain, Nausea, vomiting and diarrhea. THis is his 2nd round of chemo. These symptoms occurred during his first round as well. He feels better and able to tolerate so of the full liquid diet. Still with nausea but no vomiting. Abd pain better and occurs with deep breathing. Exam Narrative: AF 97.1 108/67 66 18 94% ra Gen - NARD Chest - CTA bilaterally, nml RR. Port accessed right upper chest CV - RRR S1/S2 Abd - Soft, voluntary guarding. bladder feels full. Ext - No pedal edema Psych - Nml mood and affect Skin - Warm and dry Objective Data Vital Signs Vital Signs: Vital Signs - 24 hr 09/26/23 20:00 09/26/23 21:48 09/27/23 05:32 Temperature 97.6 F 97.8 F Pulse Rate 61 68 Respiratory Rate 16 18 Blood Pressure 130/74 136/77 Pulse Oximetry 98 96 95 Oxygen Delivery Room Air 09/27/23 09:05 09/27/23 13:41 Temperature 97.1 F L Pulse Rate 66 Respiratory Rate 18 Blood Pressure 108/67 Pulse Oximetry 94 Oxygen Delivery Room Air Intake/Output Intake/Output: Intake & Output 09/24/23 09/25/23 09/26/23 09/27/23 23:59 23:59 23:59 23:59 Intake Total 3000 1050 Output Total 125 650 Balance 2875 400 Meds/Results Medications: Active Medications Generic Name Dose Route Start Last Admin Trade Name Freq PRN Reason Stop Dose Admin Fish Oil 1 gm 09/27/23 09:00 09/27/23 09:07 [place] 3 Polyunsat Fatty Acids 1 Gm Cap PO 10/27/23 08:59 1 gm DAILY SHERYL Administration Hydromorphone HCl 1.
[2023-09-27 20:46] VITALS: BP 109/67; PULSE 70; RESP 16; TEMP 36.4; O2SAT 95
[2023-09-27 23:55] VITALS: BP 108/61; PULSE 75; RESP 16; TEMP 36.3; O2SAT 96
[2023-09-28] MEDS: HYDROmorphone HCL INJ (*CRX) 2 MG/ML VIAL 1.5 MG IV PUSH ×4 (03:52→20:38)
[2023-09-28 05:09] VITALS: BP 113/55; PULSE 74; RESP 16; TEMP 37.2; O2SAT 95
[2023-09-28] MEDS: LACTATED RINGERS 1,000 ML 100 ML IV CONT (05:45)
[2023-09-28 07:27] LABS: Basophils Percent Auto 0.3 % (0.2-1.2); Eosinophils Absolute Auto 0.3 K/mm3 (0-0.3); Eosinophils Percent Auto 1.9 % (0-4.4); Hematocrit 32.9 % (42.0-52.0); Hemoglobin 11.5 g/dL (14.0-18.0); Immature Granulocyte Absolute 0.13 K/mm3 (0.00-0.031); Immature Granulocyte Percent A 0.9 % (0-0.5); Lymphocytes Absolute Auto 3.55 K/mm3 (0.9-3.2); Lymphocytes Percent Auto 24.3 % (18.3-44.2); Mean Corpuscular Hemoglobin 35.7 pg (26-34); Mean Corpuscular Volume 102.2 fl (80-100); Mean Platelet Volume 9.2 fl (7.4-10.4); Monocytes Absolute Auto 2.3 K/mm3 (0.1-0.6); Neutrophils Absolute Auto 8.3 K/mm3 (1.3-6.7); Neutrophils Percent Auto 56.6 % (45.5-73.1); Nucleated Red Blood Cells Perc 0.3 % (0.0-0.2); Platelet Count Result 644 k/mm3 (150-375); Red Blood Count 3.22 M/mm3 (4.6-6.20); Red Cell Distribution Width 15.9 % (11.5-14.5); White Blood Count 14.6 K/mm3 (4.5-10.0)
[2023-09-28] MEDS: HYDROcodone/acetaminophen (*CRX) 5-325 MG TABLET 1 TAB PO ×3 (07:27→23:33)
[2023-09-28 07:34] LABS: Alanine Aminotransferase 21 U/L (6-50); Albumin Level 2.8 g/dL (3.5-5.1); Alkaline Phosphatase 93 U/L (38-126); Anion Gap 2 mmol/L (8-16); Aspartate Amino Transferase 33 U/L (17-59); Bilirubin,Total 0.5 mg/dL (0.2-1.3); Blood Urea Nitrogen 8 mg/dL (9-20); Calcium 8.6 mg/dL (8.4-10.2); Carbon Dioxide 29 mmol/L (22-30); Chloride 102 mmol/L (98-107); Estimated CRCL calculation 99 ml/min; Estimated Glomerular Filt Rate > 60; Glucose 108 mg/dL (65-110); Lipase 55 U/L (23-300); Magnesium 1.8 mg/dL (1.6-2.3); Phosphorus 3.2 mg/dL (2.5-4.5); Potassium 3.3 mmol/L (3.4-5.0); Sodium 133 mmol/L (137-145)
[2023-09-28] MEDS: SERTRALINE HCL 50 MG TABLET PO (08:26)
[2023-09-28] MEDS: TAMSULOSIN HCL 0.4 MG CAPSULE PO (08:26)
[2023-09-28] MEDS: PANTOPRAZOLE SODIUM IV 40 MG VIAL IV PUSH (08:26)
[2023-09-28] MEDS: OMEGA 3 POLYUNSAT FATTY ACIDS 1 GM CAP PO (08:26)
[2023-09-28] MEDS: OPTI-GEN TAB 1 TABLET PO (08:26)
[2023-09-28] MEDS: lisinopriL 20 MG TABLET 40 MG PO (08:26)
--- NOTE | 2023-09-28 10:16 | PCOTNOTE ---
Attempted to see pt. for Occupational Therapy evaluation. Pt. upright in bed, fully dressed, declined need for services, with nursing confirmation that pt. has been independent in room and ambulating independently on floor. No skilled OT services necessary at this time, cancelling orders.
--- NOTE | 2023-09-28 10:45 | PCPTNOTE ---
per OT, pt is completely independent with mobility
[2023-09-28 14:00] VITALS: BP 119/73; PULSE 67; RESP 18; TEMP 37.1; O2SAT 98
[2023-09-28] MEDS: ONDANSETRON INJ 4 MG/2 ML VIAL IV PUSH (14:26)
[2023-09-28] MEDS: CENTRAL LINE FLUSH 10 ML IV PUSH ×2 (14:26→20:39)
--- NOTE | 2023-09-28 15:21 | PM.IMPN ---
Progress Note: A&P Assessment and Plan (1) Acute pancreatitis: Qualifiers: Acute pancreatitis complication: no infection or necrosis Pancreatitis type: unspecified pancreatitis type Qualified Code(s): K85.90 - Acute pancreatitis without necrosis or infection, unspecified Code(s): K85.90 - Acute pancreatitis without necrosis or infection, unspecified Status: Acute Assessment and Plan: Patient presents with n/v. Lipase [address] abd/pelvis showing stable cystic lesions in the liver; spleen not visualized. The gallbladder, adrenals and kidneys are within normal limits. Patient is status post resection of the distal pancreas. There are atherosclerotic calcifications of the aorta.? No lymphadenopathy. No acute abnormality evident. S/p distal pancreatectomy. Enlarged prostate gland. Patient was NPO and given 3L NS bolus and then on LR Pain management: with Dilaudid; Tylenol and [place] for lower pain levels. Antiemetics p.r.n. Holding statin Lipase normal on repeat. Passed stone? Related to chemo? - LFTs and total bilirubin WNL so unlikely stone/sludge. Diet advanced to regular Nausea better and tolerating food but still persistent symptoms LFTs remaining normal but with higher WBC and plt count - occult infection? --UA and CXR clear. Monitor for now Continue symptomatic care (2) Pancreatic cancer: Qualifiers: Pancreatic malignancy location: unspecified Qualified Code(s): C25.9 - Malignant neoplasm of pancreas, unspecified Code(s): C25.9 - Malignant neoplasm of pancreas, unspecified Status: Acute Assessment and Plan: As above. On chemo and last chemo transfusion discontinued/held due to his symptoms Oncology consulted and appreciate their input. PT/OT (3) Intractable nausea and vomiting: Code(s): R11.2 - Nausea with vomiting, unspecified Status: Acute Assessment and Plan: As above. Better overall but still with nausea mostly with food. Antiemetics available prn Tolerating regular diet. Stop IV fluids. (4) Diarrhea: Qualifiers: Diarrhea type: unspecified type Qualified Code(s): R19.7 - Diarrhea, unspecified Code(s): R19.7 - Diarrhea, unspecified Status: Acute Assessment and Plan: Diarrhea prior to admission but no BMs here. Imodium ordered but has not required this. CDiff negative. Stool culture NGTD Suspect this is secondary to pancreatitis/chemo treatments Follow (5) Hypertension: Qualifiers: Hypertension type: essential hypertension Qualified Code(s): I10 - Essential (primary) hypertension Code(s): I10 - Essential (primary) hypertension Status: Chronic Assessment and Plan: Patient's blood pressure was reviewed on 09/28 HCTZ held but continued on lisinopril. Blood pressure remains almost too well controlled. Will cut back lisinopril. Plan DVT Prophylaxis: SCDs Code Status: Full Code Subjective Date/time seen: 09/28/23 15:21 Interval history: 68yo male with pancreatic CA currently undergoing chemo here for abdominal pain, nausea, vomiting and diarrhea. Had abdominal pain after eating breakfast this morning. He admits to maybe eating too much. Still with abd pain with lunch however wit nausea. Up walking in the halls. No BM. Exam Narrative: AF 99.0 113/55 74 16 95% ra Gen - NARD Chest - CTA bilaterally, nml RR. Port accessed right upper chest CV - RRR S1/S2 Abd - Soft, +BS, less tender Ext - No pedal edema Psych - Nml mood and affect Skin - Warm and dry Objective Data Vital Signs Vital Signs: Vital Signs - 24 hr 09/27/23 20:46 09/27/23 23:55 09/28/23 05:09 Temperature 97.6 F 97.4 F L 99 F Pulse Rate 70 75 74 Respiratory Rate 16 16 16 Blood Pressure 109/67 108/61 113/55 L Pulse Oximetry 95 96 95 Oxygen Delivery 09/28/23 08:30 Temperature Pulse Rate Respiratory Rate Blood Pressure Pulse Oximetry
[2023-09-28] MEDS: POTASSIUM CHLORIDE 20 MEQ PACKET (FOR LIQUID) 40 MEQ PO (17:41)
[2023-09-28] MEDS: PROCHLORPERAZINE MALEATE 5 MG TABLET 10 MG PO (17:42)
[2023-09-28 21:25] VITALS: BP 122/80; PULSE 81; RESP 16; TEMP 37.3; O2SAT 97
[2023-09-29] MEDS: HYDROmorphone HCL INJ (*CRX) 2 MG/ML VIAL 1.5 MG IV PUSH ×4 (02:59→20:45)
[2023-09-29 05:23] VITALS: BP 122/76; PULSE 77; RESP 16; TEMP 36.1; O2SAT 96
[2023-09-29] MEDS: HYDROcodone/acetaminophen (*CRX) 5-325 MG TABLET 1 TAB PO ×4 (05:36→23:42)
[2023-09-29] MEDS: CENTRAL LINE FLUSH 10 ML IV PUSH ×2 (05:36→20:52)
[2023-09-29] MEDS: ONDANSETRON INJ 4 MG/2 ML VIAL IV PUSH ×3 (05:41→23:08)
[2023-09-29 05:49] LABS: Basophils Percent Auto 0.3 % (0.2-1.2); Eosinophils Absolute Auto 0.2 K/mm3 (0-0.3); Eosinophils Percent Auto 1.6 % (0-4.4); Hematocrit 32.2 % (42.0-52.0); Hemoglobin 11.2 g/dL (14.0-18.0); Immature Granulocyte Percent A 0.7 % (0-0.5); Lymphocytes Absolute Auto 3.24 K/mm3 (0.9-3.2); Lymphocytes Percent Auto 22.4 % (18.3-44.2); Mean Corpuscular HGB Conc 34.8 g/dl (32-36); Mean Corpuscular Hemoglobin 35.4 pg (26-34); Mean Corpuscular Volume 101.9 fl (80-100); Monocytes Absolute Auto 2.2 K/mm3 (0.1-0.6); Monocytes Percent Auto 14.9 % (2.6-8.5); Neutrophils Absolute Auto 8.7 K/mm3 (1.3-6.7); Neutrophils Percent Auto 60.1 % (45.5-73.1); Nucleated Red Blood Cells Perc 0.1 % (0.0-0.2); Platelet Count Result 587 k/mm3 (150-375); Red Blood Count 3.16 M/mm3 (4.6-6.20); Red Cell Distribution Width 16.2 % (11.5-14.5); White Blood Count 14.5 K/mm3 (4.5-10.0)
[2023-09-29 06:00] LABS: Albumin Level 2.9 g/dL (3.5-5.1); Anion Gap 3 mmol/L (8-16); Blood Urea Nitrogen 10 mg/dL (9-20); Calcium 8.5 mg/dL (8.4-10.2); Carbon Dioxide 29 mmol/L (22-30); Chloride 102 mmol/L (98-107); Estimated CRCL calculation 99 ml/min; Estimated Glomerular Filt Rate > 60; Glucose 99 mg/dL (65-110); Phosphorus 3.3 mg/dL (2.5-4.5); Potassium 3.5 mmol/L (3.4-5.0); Sodium 134 mmol/L (137-145)
[2023-09-29 08:00] VITALS: PULSE 77; RESP 16; O2SAT 96
[2023-09-29] MEDS: TAMSULOSIN HCL 0.4 MG CAPSULE PO (09:00)
[2023-09-29] MEDS: OPTI-GEN TAB 1 TABLET PO (09:00)
[2023-09-29] MEDS: lisinopriL 20 MG TABLET PO (09:01)
[2023-09-29] MEDS: SERTRALINE HCL 50 MG TABLET PO (09:01)
[2023-09-29] MEDS: OMEGA 3 POLYUNSAT FATTY ACIDS 1 GM CAP PO (09:01)
[2023-09-29] MEDS: PANTOPRAZOLE SODIUM IV 40 MG VIAL IV PUSH (09:06)
[2023-09-29] MEDS: ENOXAPARIN 40 MG/0.4 ML SYRINGE SUB-Q (09:06)
[2023-09-29 14:00] VITALS: BP 121/72; PULSE 64; RESP 16; TEMP 37.1; O2SAT 97
--- NOTE | 2023-09-29 14:07 | PM.IMPN ---
Progress Note: A&P Assessment and Plan (1) Intractable nausea and vomiting: Code(s): R11.2 - Nausea with vomiting, unspecified Status: Acute Assessment and Plan: Patient worse with persistent nausea and abdominal pain Antiemetics available prn Tolerating oral intake but causes significant abd pain KUB yesterday showing fluid filled colon and he is still having loose stools. Check Lipase. Repeat CT A/P. (2) Acute pancreatitis: Qualifiers: Acute pancreatitis complication: no infection or necrosis Pancreatitis type: unspecified pancreatitis type Qualified Code(s): K85.90 - Acute pancreatitis without necrosis or infection, unspecified Code(s): K85.90 - Acute pancreatitis without necrosis or infection, unspecified Status: Acute Assessment and Plan: Patient presents with n/v. Lipase [address] abd/pelvis showing stable cystic lesions in the liver; spleen not visualized. The gallbladder, adrenals and kidneys are within normal limits. Patient is status post resection of the distal pancreas. There are atherosclerotic calcifications of the aorta.? No lymphadenopathy. No acute abnormality evident. S/p distal pancreatectomy. Enlarged prostate gland. Patient was NPO and given 3L NS bolus and then on LR Pain management: with Dilaudid; Tylenol and [place] for lower pain levels. Antiemetics p.r.n. Holding statin Lipase normal on repeat. Passed stone? Related to chemo? - LFTs and total bilirubin WNL so unlikely stone/sludge. Diet advanced to regular Nausea better and tolerating food but still persistent symptoms LFTs remaining normal but with higher WBC and plt count - occult infection? --UA and CXR clear. Monitor for now Continue symptomatic care Repeat Lipase (3) Pancreatic cancer: Qualifiers: Pancreatic malignancy location: unspecified Qualified Code(s): C25.9 - Malignant neoplasm of pancreas, unspecified Code(s): C25.9 - Malignant neoplasm of pancreas, unspecified Status: Acute Assessment and Plan: As above. On chemo and last chemo transfusion discontinued/held due to his symptoms Oncology consulted and appreciate their input. PT/OT (4) Diarrhea: Qualifiers: Diarrhea type: unspecified type Qualified Code(s): R19.7 - Diarrhea, unspecified Code(s): R19.7 - Diarrhea, unspecified Status: Acute Assessment and Plan: Diarrhea prior to admission but no BMs here. Imodium ordered but has not required this. CDiff negative. Stool culture NGTD Suspect this is secondary to pancreatitis/chemo treatments Still with loose stools but frequency and severity better. Follow (5) Hypertension: Qualifiers: Hypertension type: essential hypertension Qualified Code(s): I10 - Essential (primary) hypertension Code(s): I10 - Essential (primary) hypertension Status: Chronic Assessment and Plan: Patient's blood pressure was reviewed on 09/29 HCTZ held but we continued his lisinopril. Blood pressure was too well controlled so lisinopril decreased BP stable Plan DVT Prophylaxis: SCDs, Lovenox Code Status: Full Code Subjective Date/time seen: 09/29/23 14:07 Interval history: 68yo male with pancreatic CA currently undergoing chemo here for abdominal pain, nausea, vomiting and diarrhea. Increasing pain last night. Did not eat dinner. Able to eat some breakfast. +BM that was diarrhea. Abd pain improved with BM. Exam Narrative: AF 98.7 121/72 64 16 97% ra Gen - NARD Chest - CTA bilaterally, nml RR. Port accessed right upper chest CV - RRR S1/S2 Abd - Soft, diffusely tender with guarding. Ext - No pedal edema. Negative Homans Psych - Nml mood and affect Skin - Warm and dry Objective Data Vital Signs Vital Signs: Vital Signs - 24 hr 09/28/23 21:25 09/29/23 05:23 09/29/23 08:00 Temperature 99.1 F 97 F L Pulse Rate 81 77 77 Respiratory Rate 16 16 16 Blood Press
--- NOTE | 2023-09-29 19:03 | PC.NURSE ---
Lab called and stated Lipase would be an add on to todays labs.
[2023-09-29 19:12] LABS: Lipase 103 U/L (23-300)
[2023-09-29 20:45] VITALS: BP 135/74; PULSE 73; RESP 16; TEMP 36.3; O2SAT 98
[2023-09-30] MEDS: HYDROmorphone HCL INJ (*CRX) 2 MG/ML VIAL 1.5 MG IV PUSH ×5 (02:52→16:55)
[2023-09-30 05:06] VITALS: BP 118/64; PULSE 73; RESP 16; TEMP 36.6; O2SAT 97
[2023-09-30] MEDS: HYDROcodone/acetaminophen (*CRX) 5-325 MG TABLET 1 TAB PO ×3 (05:46→16:55)
[2023-09-30] MEDS: CENTRAL LINE FLUSH 10 ML IV PUSH (05:47)
[2023-09-30 07:27] LABS: Basophils Absolute Auto 0.1 K/mm3 (0.0-0.1); Basophils Percent Auto 0.3 % (0.2-1.2); Eosinophils Absolute Auto 0.3 K/mm3 (0-0.3); Eosinophils Percent Auto 1.7 % (0-4.4); Hematocrit 33.4 % (42.0-52.0); Hemoglobin 11.5 g/dL (14.0-18.0); Immature Granulocyte Percent A 0.6 % (0-0.5); Lymphocytes Absolute Auto 4.08 K/mm3 (0.9-3.2); Lymphocytes Percent Auto 26.5 % (18.3-44.2); Mean Corpuscular HGB Conc 34.4 g/dl (32-36); Mean Corpuscular Hemoglobin 35.1 pg (26-34); Mean Corpuscular Volume 101.8 fl (80-100); Mean Platelet Volume 8.9 fl (7.4-10.4); Monocytes Absolute Auto 2.4 K/mm3 (0.1-0.6); Monocytes Percent Auto 15.8 % (2.6-8.5); Neutrophils Absolute Auto 8.5 K/mm3 (1.3-6.7); Neutrophils Percent Auto 55.1 % (45.5-73.1); Nucleated Red Blood Cells Perc 0.2 % (0.0-0.2); Platelet Count Result 590 k/mm3 (150-375); Red Blood Count 3.28 M/mm3 (4.6-6.20); Red Cell Distribution Width 16.7 % (11.5-14.5); White Blood Count 15.4 K/mm3 (4.5-10.0)
[2023-09-30 07:41] LABS: Alanine Aminotransferase 21 U/L (6-50); Albumin Level 3.1 g/dL (3.5-5.1); Alkaline Phosphatase 89 U/L (38-126); Anion Gap 4 mmol/L (8-16); Aspartate Amino Transferase 28 U/L (17-59); Bilirubin,Total 0.6 mg/dL (0.2-1.3); Blood Urea Nitrogen 8 mg/dL (9-20); Calcium 8.6 mg/dL (8.4-10.2); Carbon Dioxide 27 mmol/L (22-30); Chloride 103 mmol/L (98-107); Estimated CRCL calculation 99 ml/min; Estimated Glomerular Filt Rate > 60; Glucose 85 mg/dL (65-110); Potassium 3.6 mmol/L (3.4-5.0); Sodium 134 mmol/L (137-145)
[2023-09-30] MEDS: ONDANSETRON INJ 4 MG/2 ML VIAL IV PUSH (09:03)
[2023-09-30] MEDS: PROCHLORPERAZINE MALEATE 5 MG TABLET 10 MG PO (09:04)
[2023-09-30] MEDS: SERTRALINE HCL 50 MG TABLET PO (09:05)
[2023-09-30] MEDS: lisinopriL 20 MG TABLET PO (09:05)
[2023-09-30] MEDS: ENOXAPARIN 40 MG/0.4 ML SYRINGE SUB-Q (09:05)
[2023-09-30] MEDS: OPTI-GEN TAB 1 TABLET PO (09:05)
[2023-09-30] MEDS: OMEGA 3 POLYUNSAT FATTY ACIDS 1 GM CAP PO (09:05)
[2023-09-30] MEDS: TAMSULOSIN HCL 0.4 MG CAPSULE PO (09:05)
[2023-09-30] MEDS: PANTOPRAZOLE SODIUM IV 40 MG VIAL IV PUSH (09:06)
[2023-09-30] MEDS: HEPARIN SODIUM LOCK FLUSH 500 UNITS/5 ML SYRINGE IV PUSH (10:39)
[2023-09-30 11:33] VITALS: O2SAT 95
[2023-09-30 14:00] VITALS: BP 106/68; PULSE 67; RESP 16; TEMP 36.3; O2SAT 97
--- NOTE | 2023-09-30 15:45 | PM.DS ---
DS: Admitting Diagnosis Discharge Date 09/30/23 Admitting Diagnosis Nausea, vomiting, diarrhea and abdominal pain DS: Discharge Diagnosis Discharge Diagnosis (1) Intractable nausea and vomiting: Code(s): R11.2 - Nausea with vomiting, unspecified Status: Acute (2) Acute pancreatitis: Qualifiers: Acute pancreatitis complication: no infection or necrosis Pancreatitis type: unspecified pancreatitis type Qualified Code(s): K85.90 - Acute pancreatitis without necrosis or infection, unspecified Code(s): K85.90 - Acute pancreatitis without necrosis or infection, unspecified Status: Acute (3) Pancreatic cancer: Qualifiers: Pancreatic malignancy location: unspecified Qualified Code(s): C25.9 - Malignant neoplasm of pancreas, unspecified Code(s): C25.9 - Malignant neoplasm of pancreas, unspecified Status: Acute (4) Diarrhea: Qualifiers: Diarrhea type: unspecified type Qualified Code(s): R19.7 - Diarrhea, unspecified Code(s): R19.7 - Diarrhea, unspecified Status: Acute (5) Hypertension: Qualifiers: Hypertension type: essential hypertension Qualified Code(s): I10 - Essential (primary) hypertension Code(s): I10 - Essential (primary) hypertension Status: Chronic DS: Summary Hospital Course Reason for hospitalization: 68yo male with pancreatic CA currently undergoing chemo here for abdominal pain, nausea, vomiting and diarrhea. Please see H&P for details Hospital Course: Patient presents with n/v. Lipase [address] abd/pelvis showing stable cystic lesions in the liver; spleen not visualized. The gallbladder, adrenals and kidneys are within normal limits. Patient is status post resection of the distal pancreas. There are atherosclerotic calcifications of the aorta.? No lymphadenopathy.? No acute abnormality evident.?Enlarged prostate gland. Patient was NPO and was given 3L NS bolus and then on LR. Pain management with narcotics, antiemetics p.r.n. Held statin. Lipase normal on repeat. LFTs and total bilirubin WNL so unlikely stone/sludge. Diet advanced to regular. Nausea was better and tolerating food but then symptoms worsened/ LFTs remaining normal but with higher WBC and plt count. UA and CXR clear. KUB showing fluid filled colon and he is still having loose stools. CT Abd/Pelvis repeated due to persistent symptoms and found to have dilated GB but no stones or inflammation (felt related to fasting), perigastric and peripancreatic inflammation, small volume of ascites and fluid filled colon. Repeat lipase normal. He was treated with Protonix. CDiff negative. Stool culture negative. Patient's blood pressure was monitored closely. HCTZ held but we continued his lisinopril. Blood pressure was too well controlled so lisinopril decreased. He had improvement and able to tolerate diet. He was able to be discharged home on 09/30/23. Of note, the port-a-cath was accessed (order written as PICC line, Ok to use). The order was changed under my name but Port already accessed at that time. Unable to draw blood from port overnight and port de-activated. Unclear if port was functional so had RN re-assess port. Port working well. Status at Discharge Cognitive/behavioral status at discharge: stable Time Spent with Patient Time attestation: Total time spent providing and/or coordinating discharge services: 39 minutes Time spent: Greater than 30 minutes Exam Narrative: AF 97.4 106/86 67 16 97% ra Gen - NARD Chest - CTA bilaterally, nml RR. CV - RRR S1/S2 Abd - Soft, mild tenderness but no guarding, +BS Ext - No pedal edema Psych - Nml mood and affect Skin - Warm and dry DS: Data Data Completed and Pending Labs on day of discharge: Labs from last 24 hours 09/30/23 09/29/23 07:07 05:37 WBC 15.4 H RBC 3.28 L Hgb 11.5 L Hct 33.4 L MCV 101.8 H MCH 35.1 H MCHC 34.4 RDW 16.7 H Plt Count 590
== END 2023-09-30 17:17 | disposition home or self-care (01) | DRG 439 ==
LOC: ANHED 15:07 → ANH3MEDSUR 15:25
PROVIDERS: Emergency Medicine; Student in an Organized Health Care Education/Training Program; Admitting Provider Internal Medicine; Emergency Provider Physician Assistant; PCP Physician Assistant; Visit Provider Internal Medicine
DX: K85.30 Drug induced acute pancreatitis without necrosis or infection (principal); C25.9 Malignant neoplasm of pancreas, unspecified; K52.1 Toxic gastroenteritis and colitis; T45.1X5A Adverse effect of antineoplastic and immunosuppressive drugs, initial encounter; M19.90 Unspecified osteoarthritis, unspecified site; E78.5 Hyperlipidemia, unspecified; I10 Essential (primary) hypertension; E86.0 Dehydration; Z20.822 Contact with and (suspected) exposure to COVID-19; F17.210 Nicotine dependence, cigarettes, uncomplicated; Z90.81 Acquired absence of spleen
CPT/HCPCS: 36415; 71045; 74019; 74176; 74177; 76705; 80053; 80069; 81001; 82948; 83605; 83690; 83735; 84100; 84484; 85025; 86140; 87045; 87427; 87449; 87493; 87637; 93005; 96361; 96365; 96366; 96375; 96376; 99285; A9270; C9113; G0378; J1170; J1642; J1650; J2270; J2405; J3475; J7030; J7120; Q9967

== ENCOUNTER 2023-12-10 12:15 | Emergency (ER) | payer MEDICARE, SELFPAY ==
--- NOTE | ~2023-12-10 | CT_ITS ---
EXAMINATION: CTA chest PE protocol DATE: 12/10/2023 14:57 INDICATION: Chest pain. Palpitations. TECHNIQUE: Computed tomography angiography (CTA) of the chest was performed with 100 mL Omnipaque-350 intravenous contrast timed to evaluate the pulmonary arteries. Coronal maximum intensity projection 3D-reconstructions were created by the technologist. Automated exposure control and iterative reconst ruction technique were employed. The dose-length product was 336.85 mGy-cm. COMPARISON: CT abdomen and pelvis 09/29/2023 FINDINGS: There is mild emphysema. Calcified pulmonary nodules and calcified hilar mediastinal lymph nodes are consistent with old granulomatous disease. There is mild atelectasis bilaterally. The heart size is normal. There are coronary artery calcifications. No pericardial effusion. There are cysts i n the liver measuring up to 3.1 cm. There is mild chronic anterior wedging of multiple vertebral bodi es. There is moderate thoracic spondylosis. IMPRESSION: 1. No pulmonary embolus. 2. Mild emphysema. Reviewed, dictated and finalized at location A.
[2023-12-10 12:25] VITALS: BP 162/85; PULSE 65; RESP 18; TEMP 36.6; O2SAT 100
--- NOTE | 2023-12-10 13:45 | ECG_ITS ---
SEE SCANNED COPY FOR CONFIRMED REPORT. MTDD
--- NOTE | 2023-12-10 14:06 | ED.CHESTPAIN ---
HPI - Chest Pain General Chief Complaint: Chest Pain Stated Complaint: chest pain Time Seen by Provider: 12/10/23 13:44 History of Present Illness HPI narrative: 68-year-old male undergoing treatment for pancreatic cancer presents emergency department for evaluation heart pounding. Patient states he feels he is having a pounding heartbeat intermittently over the course of the last week. Patient was at his doctor's office getting prepared for a chemotherapy treatment when he began having sensations of a pounding heart beat. Patient was transferred to the emergency department for further workup of his chest pain. Related Data Home Medications Medication Instructions Recorded Confirmed omega 7-tgm-grn-fish oil 100 1 cap PO DAILY 07/04/22 12/10/23 mg-160 mg-1,000 mg capsule (Fish Oil) kpylrbrv-sk-cparx 300 mcg-K 60 1 tablet PO DAILY 08/14/23 12/10/23 mcg-lycop 600 mcg-lutein 300 mcg tablet (Centrum Silver Men) sertraline 50 mg tablet 50 mg PO DAILY 09/07/23 12/10/23 simvastatin 20 mg tablet 20 mg PO DAILY 09/07/23 12/10/23 tamsulosin 0.4 mg capsule 0.4 mg PO DAILY 09/07/23 12/10/23 ondansetron 8 mg disintegrating 8 mg PO Q8H PRN Nausea And Vomiting 09/26/23 12/10/23 tablet prochlorperazine maleate 10 mg 10 mg PO Q8H PRN Nausea And 09/26/23 12/10/23 tablet Vomiting Allergies Allergy/AdvReac Type Severity Reaction Status Date / Time No Known Allergies Allergy Mild Verified 12/10/23 12:15 Review of Systems Review of Systems: All systems reviewed & are unremarkable except as noted in HPI and below PMFSH Past Medical History Medical History Arthritis Hx of appendicitis Hyperlipidemia Hypertension Pancreatic cancer Surgical History Surgical History History of partial pancreatectomy History of splenectomy Family History Family History Mother Family history of osteoarthritis Family history of alcoholism Dementia Father Family history of alcoholism Social History Social History Smoking packs per day: 1 Smoking cigarettes per day: 20.0 Years smoked: 50 Smoking pack-years: 50.00 Smoking status: Current some day smoker Tobacco type: cigarettes Second hand tobacco smoke exposure: Yes Alcohol intake: former Substance use: current Substance use type: marijuana Other substance usage details: REC - 1 harvey PHILLIP Last use: 09/23/2023 Do You Feel Safe in your Home?: Yes Lack of Transportation: No Lack of Food: Never True Current Housing: I Have Housing Concerned About Future Housing: No Difficulty Paying Gas/Electric Bills: No Difficulty Paying for Meds: No Currently Unemployed: No Education: Associate Degree Difficulty w/ Childcare or Family Care: No Living arrangements: with family Occupation/Education: retired Gender identity (if verbalized by the patient): Male Spiritual care concerns: No Exam Narrative: APPEARANCE: Well appearing, no pain, no distress, well-nourished. HEAD: normocephalic, atraumatic. EYES: PERRLA/EOMI, conjunctivae clear. NOSE: Normal no drainage EARS:TMS clear with good light reflex. THROAT: Pharynx clear, no exudate. NECK: Supple. No adenopathy, no masses. RESPIRATORY: Airway patent, respirations nonlabored. Clear to auscultation bilaterally, no rales, rhonchi, wheezing. CARDIOVASCULAR: Regular rate and rhythm without murmurs rubs or gallops. ABDOMINAL: Soft, nontender, nondistended, normal bowel sounds MUSCULOSKELETAL: Moves all extremities. Strength/ROM intact, No edema, No calf tenderness. NEURO: Alert. Cranial nerves II through XII intact. SKIN: Warm, dry. Normal Color Course Vital Signs Vital signs: Vital Signs Temperature 97.8 F 12/10/23 12:25 Pulse Rat
[2023-12-10 14:15] VITALS: O2SAT 100
[2023-12-10 14:25] LABS: Basophils Absolute Auto 0.1 K/mm3 (0.0-0.1); Basophils Percent Auto 0.6 % (0.2-1.2); Eosinophils Absolute Auto 0.2 K/mm3 (0-0.3); Eosinophils Percent Auto 1.9 % (0-4.4); Hemoglobin 12.8 g/dL (14.0-18.0); Immature Granulocyte Absolute 0.03 K/mm3 (0.00-0.031); Immature Granulocyte Percent A 0.3 % (0-0.5); Lymphocytes Absolute Auto 3.52 K/mm3 (0.9-3.2); Lymphocytes Percent Auto 32.9 % (18.3-44.2); Mean Corpuscular HGB Conc 33.7 g/dl (32-36); Mean Corpuscular Hemoglobin 36.3 pg (26-34); Mean Corpuscular Volume 107.6 fl (80-100); Mean Platelet Volume 9.4 fl (7.4-10.4); Monocytes Absolute Auto 1.3 K/mm3 (0.1-0.6); Monocytes Percent Auto 12.1 % (2.6-8.5); Neutrophils Absolute Auto 5.6 K/mm3 (1.3-6.7); Neutrophils Percent Auto 52.2 % (45.5-73.1); Platelet Count Result 508 k/mm3 (150-375); Red Blood Count 3.53 M/mm3 (4.6-6.20); Red Cell Distribution Width 17.2 % (11.5-14.5); White Blood Count 10.7 K/mm3 (4.5-10.0)
[2023-12-10 14:31] VITALS: BP 164/89; PULSE 73; RESP 16; O2SAT 96
[2023-12-10 14:33] LABS: Appearance Urine Clear (Clear); Bilirubin Urine Negative (Negative); Blood Urine Negative (Negative); Color Urine Yellow (Yellow); Glucose Urine UA Negative (Negative); Ketones Urine Negative (Negative); Leukocyte Esterase Ur Negative LEU/UL (Negative); Nitrate Urine Negative (Negative); Protein Urine Negative (Negative); Specific Grav Ur 1.008 (1.001-1.035); Urobilinogen Urine 0.2 mg/dL (<2.0)
[2023-12-10 14:35] LABS: Alanine Aminotransferase 21 U/L (6-50); Albumin Level 4.2 g/dL (3.5-5.1); Alkaline Phosphatase 100 U/L (38-126); Anion Gap 6 mmol/L (4-12); Aspartate Amino Transferase 28 U/L (17-59); Bilirubin,Total 0.6 mg/dL (0.2-1.3); Blood Urea Nitrogen 13 mg/dL (9-20); Calcium 9.7 mg/dL (8.4-10.2); Carbon Dioxide 26 mmol/L (22-30); Chloride 109 mmol/L (98-107); Estimated CRCL calculation 103 ml/min; Estimated Glomerular Filt Rate > 60; Glucose 88 mg/dL (65-110); Partial Thromboplastin Time 31.8 Seconds (22.3-36.8); Potassium 3.6 mmol/L (3.4-5.0); Prothrombin Time 14.1 Seconds (11.1-14.7); Sodium 141 mmol/L (137-145)
[2023-12-10 14:37] LABS: Add Urine Microscopic? NO
[2023-12-10 14:47] LABS: Anisocytosis 1+; Hypochromasia 1+; NT Pro B Type Natriuretic Pept 393 pg/mL (19.9-100); Platelet Estimate Adequate (Adequate); Poikilocytosis 1+; Troponin I < 0.012 ng/mL (0.000-0.034)
[2023-12-10 14:48] LABS: Schistocytes None Seen; Target Cells 1+
[2023-12-10 16:00] VITALS: BP 164/89; PULSE 66; RESP 16; O2SAT 98
[2023-12-10 17:38] LABS: Troponin I < 0.012 ng/mL (0.000-0.034)
[2023-12-10] MEDS: HEPARIN SODIUM LOCK FLUSH 500 UNITS/5 ML VIAL (18:16)
[2023-12-10 18:17] VITALS: BP 164/78; PULSE 72; RESP 16; O2SAT 98
== END 2023-12-10 18:25 | disposition home or self-care (01) ==
PROVIDERS: Emergency Provider Emergency Medicine; PCP Physician Assistant
DX: R00.0 Tachycardia, unspecified (principal); R06.02 Shortness of breath; C25.9 Malignant neoplasm of pancreas, unspecified; I10 Essential (primary) hypertension; E78.5 Hyperlipidemia, unspecified; M19.90 Unspecified osteoarthritis, unspecified site; F17.210 Nicotine dependence, cigarettes, uncomplicated; Z90.411 Acquired partial absence of pancreas; Z90.81 Acquired absence of spleen; Z79.60 Long term (current) use of unspecified immunomodulators and immunosuppressants; R94.31 Abnormal electrocardiogram [ECG] [EKG]
CPT/HCPCS: 36415; 36591; 71275; 80047; 80053; 81003; 83880; 84484; 85025; 85610; 85730; 93005; 99284; J1642; Q9967

== ENCOUNTER 2024-01-08 08:20 | Outpatient (CLI) | payer MEDICARE, SELFPAY ==
--- NOTE | ~2024-01-08 | CT_ITS ---
EXAMINATION: CT abdomen pelvis w con DATE: 01/08/2024 08:56 INDICATION: Malignant neoplasm of the tail of pancreas. TECHNIQUE: Computed tomography (CT) of the abdomen and pelvis was performed with 100 mL Omnipaque 350 intravenous contrast. Automated exposure control and iterative reconstruction technique were employe d. The dose-length product was 383.11 mGy-cm. COMPARISON: CT abdomen and pelvis 09/29/2023 FINDINGS: The visualized portions of the lung bases demonstrate mild atelectasis. Calcified pulmonary nodules and calcified hilar lymph nodes are consistent with old granulomatous disease. No pleural ef fusion. The heart size is normal. No pericardial effusion. There are cysts in the liver measuring up to 3.2 cm. The gallbladder is normal. There are changes of distal pancreatectomy and splenectomy. The adrenal glands and kidneys are normal. There is calcified atherosclerosis of the aorta and many of t he other arteries. The prostate is moderately enlarged. There is a right inguinal hernia containing f at. The appendix is not visualized. There are no pathologically enlarged lymph nodes. There is no sarah e intraperitoneal fluid. There is mild thoracic and lumbar spondylosis. IMPRESSION: 1. Distal pancreatectomy. No evidence of metastatic disease. Reviewed, dictated and finalized at location A.
== END 2024-01-08 08:21 | disposition home or self-care (01) ==
LOC: ANHIMG 08:23
PROVIDERS: PCP Physician Assistant; Visit Provider Internal Medicine Hematology & Oncology
DX: C25.2 Malignant neoplasm of tail of pancreas (principal); Z90.410 Acquired total absence of pancreas
CPT/HCPCS: 74177; Q9967

== ENCOUNTER 2024-02-13 09:23 | Outpatient (CLI) | payer MEDICARE, SELFPAY ==
--- NOTE | ~2024-02-13 | CT_ITS ---
EXAMINATION: CT lung screening DATE: 02/13/2024 09:35 INDICATION: F17.210 - Nicotine dependence, cigarettes, uncomplicated TECHNIQUE: Computed tomography (CT) of the chest was performed without intravenous contrast. Addition al 3D reconstructions utilizing coronal maximum intensity projection (MIP) were performed. Automated exposure control and iterative reconstruction technique were employed. The dose-length product was 95 .21 mGy-cm. COMPARISON: Chest CT dated 12/10/2023 FINDINGS: Mild emphysema. There multiple scattered bilateral calcified pulmonary nodules along with calcified b ilateral hilar and mediastinal lymph nodes consistent with old granulomatous disease. Unchanged linea r band of lingular discoid atelectasis/scarring along the major fissure. Additional unchanged mild li near discoid atelectasis/scarring at the basilar aspect of the bilateral lower lobes. No other suspic ious noncalcified pulmonary nodules, pneumonia, pulmonary edema or pleural effusion. Heart size is no rmal. Atherosclerotic coronary artery calcifications. No pericardial effusion. Right internal jugular central venous port catheter with distal tip at the superior cavoatrial junction. Hepatic cysts vee uring up to 3.4 cm. Mild mid thoracic dextrocurvature with moderate spondylosis . Chronic mild anteri or wedging at T4 and T6-T8. IMPRESSION: 1. Lung-RADS category 1: Negative. Continue annual screening with noncontrast low-dose chest CT in 12 months. Reviewed, dictated and finalized at location B. IMPRESSION: 1. Lung-RADS category 1: Negative. Continue annual screening with noncontrast l ow-dose chest CT in 12 months.
== END 2024-02-13 09:24 ==
LOC: GOSHIMG 09:24
PROVIDERS: PCP Internal Medicine; Visit Provider Internal Medicine
DX: Z12.2 Encounter for screening for malignant neoplasm of respiratory organs (principal); F17.210 Nicotine dependence, cigarettes, uncomplicated
CPT/HCPCS: 71271

== ENCOUNTER 2024-03-11 09:00 | Outpatient (RCR) | payer MEDICARE, SELFPAY ==
[2023-08-10 13:48] VITALS: BMI 23.4
[2023-08-10 13:51] VITALS: BP 106/74; PULSE 82; TEMP 37.3; O2SAT 99
--- NOTE | 2023-08-10 14:40 | PDRADONCCN ---
[facility] - Date/Time Seen 08/10/23 14:40 - History of Present Illness RADIATION ONCOLOGY CONSULTATION DOS: 08/10/2023 Diagnosis: Pancreatic Cancer New Patient History of Present Illness/Review and Summary of Existing Medical Records: Tommy Zhao is a 68 y.o. new patient who is seen today in [facility] at the request of Dr. Olmos to be evaluated and discuss radiation treatment options for his diagnosis of pancreatic cancer. Information pertinent to this evaluation is as follows: He presented with abdominal symptoms, weight loss since 2021. He underwent extensive work-up and was found to have distal pancreatic masses/cysts. He was evaluated by the team at [facility] and consensus was for him to undergo resection. 06/07/[address] 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 ?- Adenocarcinoma measures approximately 3.4 cm in greatest dimension ?- Pancreatic neck margin negative for carcinoma ?- Tumor present <1mm from posterior surface ?- Vascular invasion is present ?- Perineural invasion is present ?- No evidence of metastatic carcinoma in twenty-five regional lymph nodes (0/25) ?- Pathologic stage (AJCC 8th edition): pT2 N0 ?- See synoptic report and comment ?- Background pancreas with chronic pancreatitis, extensive fibrosis, three associated pseudocysts, and marked dilation of distal pancreatic ducts ?- Focal non-necrotizing granulomatous inflammation in lymph node (see comment) ?- Spleen with congestion and no evidence of carcinoma Postoperative course was complicated by pancreatic duct leak status post EUS/ERCP (Dr. Ruby) with noted pancreas divisum and leak from genu therefore a sphincterotomy was performed and stent placed. More recently underwent ERCP (Dr. Isbell) was 07/11/2023 with findings of no pancreatic divisum and resolved leak. The biliary stent and previously placed cystogastrostomy stent were removed. 08/07/[address] Blake. Plan for adjuvant chemotherapy with gemcitabine + capecitabine. Referred for consideration of adjuvant RT. Tommy Zhao presents to the radiation oncology clinic today for formal consultation. He is accompanied in clinic today by his . He has no complaints today. Review of Systems: See HPI. Past Medical/Surgical History No prior history of radiotherapy No history of active collagen vascular disease including scleroderma No implanted pacemaker or defibrillator Past Medical History: Diagnosis Date ? Hyperlipidemia ? Hypertension ? Malignant neoplasm Past Surgical History: Procedure Laterality Date ? HX PANCREATECTOMY ? HX SPLENECTOMY Social History He reports that he has been smoking cigarettes. He has been smoking an average of 1 pack per day. He has never used smokeless tobacco. He reports current alcohol use. Family History family history includes No Known Problems in his father and mother; Prostate Cancer in his half-brother. Allergies No IV contrast or iodine allergy No Known Allergies Medications Current Outpatient Medications Medication Sig Dispense Refill ? omeprazole (PriLOSEC) 20 mg Capsule, Delayed Release(E.C.) Take 20 mg by mouth daily. ? simvastatin (ZOCOR) 20 mg tablet Take 20 mg by mouth daily. ? tamsulosin (FLOMAX) 0.4 mg capsule Take 0.4 mg by mouth daily. ? sertraline (ZOLOFT) 50 mg tablet Take 50 mg by mouth daily. ? lisinopril-hydroCHLOROthiazide (ZESTORETIC) 20-12.5 mg tablet Take 2 Tablets by mouth daily. ? sennosides-docusate sodium (SENNA-S) 8.6-50 mg tablet Take 1 Tablet by mouth 2 times daily. ? omega-3 fatty acids-fish oil 300-1,000 mg Capsule Take 1 Gram by mouth daily. ? capecitabine (XELODA) 500 mg tablet Take 3 Tablets (
[2024-03-11 08:42] VITALS: BP 145/92; PULSE 83; RESP 20; TEMP 36.8; O2SAT 99
--- NOTE | 2024-03-11 09:32 | PDRADONCFUV ---
Follow Up Note - Date/Time 03/11/24 09:32 - Interval History RADIATION ONCOLOGY FOLLOW UP DOS: 03/11/2024 DIAGNOSIS: 68 y/o male with pT2N0 pancreatic adenocarcinoma s/p distal pancreatectomy and splenectomy on 06/07/23 (Dr. John) which revealed 3.4 cm, poorly differentiated tumor, with focal signet ring + anaplastic features, close <1 mm posterior surface surgical margin, +, +PNI, 0/25 LN. He has been evaluated by Oncology and will receive adjuvant gem/cape (Dr. Olmos). He is referred for consideration of adjuvant RT. HISTORY & NARRATIVE: Tommy Zhao is a 68 y.o. male with a history as above. He completed a course of chemotherapy. He returns today to discuss adjuvant radiation. He recently completed adjuvant chemotherapy. He had some difficulty tolerating chemotherapy. He had hospitalizations. He required dose reductions. Restaging CT CAP from 12/2023 showed ASHER. He recently saw his surgeon and oncologist who felt that adjuvant RT was not necessary. He is here with his partner. Feels well, no complaints. PHYSICAL EXAMINATION: Vital signs: There were no vitals taken for this visit. ECOG: (1) Restricted in physically strenuous activity, ambulatory and able to do work of light nature General Appearance: The patient is a well-developed, well-nourished male, sitting, in no acute distress. HEENT: normocephalic, atraumatic. Mucus membranes moist Lungs: Breathing comfortably at rest without wheeze Abdomen: soft, non-tender. No palpable masses. Lymphatics: no palpable cervical, supraclavicular, or axillary lymphadenopathy Skin: warm, dry, no rashes or lesions Neurologic: Patient awake and alert, responds to questions appropriately RADIOLOGY REVIEW: See HPI ASSESSMENT & PLAN: Tommy Zhao is a 68 y.o. male with a history as above. He is doing well. He completed adjuvant chemotherapy with ASHER currently. We reviewed the rationale for adjuvant RT to decrease locoregional recurrence given close surgical margin (< 1 mm) We reviewed the data for adjuvant RT. He prefers to forego adjuvant RT. He will follow with Dr. Olmos long-term. I have asked Mr. Zhao to return to see me back on a PRN basis. He knows to contact me with questions or concerns. Mr. Zhao is noted to have 0/10 pain in clinic today. His individualized pain management will therefore consist of no intervention needed as the patient notes no pain of significance. I spent 20 minutes on visit today, including chart review, time with patient, documentation, and coordination of care. Luke Lozano MD H&P - Exam - Vital Signs Vital Signs - 24 hr 03/11/24 08:42 Temperature 36.8 C Pulse Rate 83 Respiratory Rate 20 Blood Pressure 145/92 H Pulse Oximetry 99
== END 2024-03-11 09:15 ==
LOC: AMCRADONC 09:00
PROVIDERS: PCP Internal Medicine; Visit Provider Radiology Radiation Oncology
DX: C25.1 Malignant neoplasm of body of pancreas (principal); M19.90 Unspecified osteoarthritis, unspecified site; E78.5 Hyperlipidemia, unspecified; F12.90 Cannabis use, unspecified, uncomplicated; I10 Essential (primary) hypertension; Z87.891 Personal history of nicotine dependence; Z98.890 Other specified postprocedural states
CPT/HCPCS: 99212; G0463

== ENCOUNTER 2024-04-08 07:56 | Outpatient (CLI) | payer MEDICARE, SELFPAY ==
--- NOTE | ~2024-04-08 | CT_ITS ---
CT of the Abdomen and Pelvis: Indication: Pancreatic neoplasm Technique: 2.5 mm axial scans were obtained through the abdomen and pelvis following intravenous adm inistration of 100 cc of Omnipaque 350. Dose reduction technique was used on this scan by utilizing a utomated exposure control and iterative reconstruction technique. The dose-length product (DLP) was 4 41.67 mGy-cm. COMPARISON: 01/08/2024 Findings: Scans through the lung bases demonstrate scattered calcified granulomas. Several hepatic cysts are present. The gallbladder, adrenals and kidneys are within normal limits. St atus post distal pancreatectomy. Status post splenectomy. There are atherosclerotic calcifications of the aorta. No lymphadenopathy. No bowel obstruction or bowel wall thickening. There is no evidence to suggest acute appendicitis. Images through the pelvis were performed. Urinary bladder unremarkable. Prostate gland is enlarged. N o pelvic mass evident. No ascites. Impression: No evidence of active malignancy or metastatic disease. Status post splenectomy and distal pancreatec mateusz. Enlarged prostate gland. Reviewed, dictated and finalized at location . Impression: No evidence of active malignancy or metastatic disease. Status post splenectomy and distal pancreatectomy. Enlarged prostate gland.
== END 2024-04-08 07:57 | disposition home or self-care (01) ==
PROVIDERS: PCP Internal Medicine; Visit Provider Internal Medicine Hematology & Oncology
DX: N40.0 Benign prostatic hyperplasia without lower urinary tract symptoms (principal); Z90.81 Acquired absence of spleen; Z90.410 Acquired total absence of pancreas
CPT/HCPCS: 74177; Q9967

== ENCOUNTER 2024-05-05 02:46 | Day surgery (SDC) | payer MEDICARE, SELFPAY ==
[2024-05-01 10:43] VITALS: BMI 24.3
--- NOTE | 2024-05-01 10:57 | PC.NURSE ---
Report to the Outpatient Waiting Room, entrance under the green pavilion located off [facility], at time ____8:15AM___ on date ___05/05/24____. Planned Procedure Time: ____10:15AM____.? Time changes happen often and if your time is changed the preop area will call you the afternoon before. - You and your visitor will be asked to self-screen and do not enter if you have any COVID symptoms. Please call surgeon if you need to reschedule. - A mask is optional within the hospital at this time. Patients may have clear liquids (water, carbonated beverages, clear teas, apple juice) until 3 hours prior to surgery with a maximum of 20 ounces. - No food from midnight until time of surgery and no smoking - Infants may have breast milk until 4 hours before surgery, formula 6 hours prior to surgery. - Children will be allowed to drink immediately following surgery.? If applicable, please bring a bottle or sippy cup to assist with drinking. Juice, water, soda, and popsicles are readily available.? For infants on formula, please bring formula the day of surgery.? Pacifiers are allowed. Take only the following medications with a SIP of water on the morning of surgery: SERTRALINE. MAY TAKE ONDANSETRON NEEDED. DO NOT STOP ANY OF YOUR OTHER PRESCRIPTION MEDICATIONS PRIOR TO SURGERY EXCEPT THE FOLLOWING Medications to discontinue per physician HOLD ALL VITAMINS/SUPPLEMENTS 3 DAYS PRE-OP PER ANESTHESIA Date to take last dose 05/01/24 Please no make-up, nail spanish, hairspray, perfume, deodorant, or body powder the day of surgery.? No jewelry (including any body piercings) or valuables the day of surgery, leave them at home.? Please take a shower or bath the night before, or the morning of, surgery with an antibacterial soap.? Wear comfortable, loose fitting clothing. - Jewelry must be removed prior to entering the operating room.? Rings and piercings that are not removed may be cut off. - The hospital will not accept responsibility for valuables.? - Please leave all valuables, including medications, at home the day of surgery. If you are going home after surgery, a licensed local company tanker driver must drive you home.? - NO public transportation without another adult if you receive anesthesia. - We recommend that an adult stay with you for 24 hours following discharge. - We also recommend that you do not drive, make important decision, drink alcoholic beverages, or take any drugs that were not prescribed by your health care provider for at least 24 hours after your discharge time. Follow any additional instructions given to you from your surgeon. Telephone instructions given to ____PATIENT and asked if any additional questions and then verbalized understanding. Patient advised to call surgeon office or pre surgery nurse liaison [phone] if any additional questions.
[2024-05-05 08:45] VITALS: BP 175/77; PULSE 71; RESP 14; TEMP 36; O2SAT 98
[2024-05-05] MEDS: LACTATED RINGERS 1,000 ML 30 ML IV CONT (10:00)
--- NOTE | 2024-05-05 10:06 | WPDANESEPPF ---
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 Patient Data Age: 68 Gender: M Height: 1.78 m Weight: 79.3 kg Last Vital Signs Temp 36.0 C L 05/05/24 08:45 Pulse 71 05/05/24 08:45 Resp 14 05/05/24 08:45 BP 175/77 H 05/05/24 08:45 Pulse Ox 98 05/05/24 08:45 O2 Del Method Room Air 05/05/24 08:45 Allergies Allergy/AdvReac Type Severity Reaction Status Date / Time No Known Allergies Allergy Mild Verified 05/05/24 10:01 Home Medications Medication Instructions Recorded Confirmed Type omega 6-yli-mpk-fish oil 100 1 cap PO DAILY 07/04/22 05/01/24 History mg-160 mg-1,000 mg capsule (Fish Oil) [id number] 300 mcg-K 60 1 tablet PO DAILY 08/14/23 05/01/24 History mcg-lycop 600 mcg-lutein 300 mcg tablet (Centrum Silver Men) ondansetron 8 mg disintegrating 8 mg PO Q8H PRN Nausea And Vomiting 09/26/23 05/01/24 History tablet pantoprazole 40 mg tablet,delayed 40 mg PO QAM #100 tabs 10/24/23 05/01/24 Rx release (Protonix) sertraline 50 mg tablet See Rx Instructions .Route 01/16/24 05/05/24 Rx .COMPLEX #100 tabs simvastatin 20 mg tablet See Rx Instructions .Route 01/16/24 05/01/24 Rx .COMPLEX #100 tabs tamsulosin 0.4 mg capsule See Rx Instructions .Route 01/16/24 05/01/24 Rx .COMPLEX #100 caps lisinopril 40 mg tablet 40 mg PO DAILY #90 tabs 04/30/24 05/01/24 Rx aspirin 81 mg tablet,delayed 81 mg PO DAILY 05/01/24 05/01/24 History release Patient hx anesthesia problems: none Family hx anesthesia problems: none Results Review: All pre-operative results and documents have been reviewed as part of the pre-operative evaluation. [facility] Past Medical History Medical History Arthritis Hx of appendicitis Hyperlipidemia Hypertension Pancreatic cancer Surgical History Surgical History History of partial pancreatectomy History of splenectomy Family History Family History Mother Family history of osteoarthritis Family history of alcoholism Dementia Father Family history of alcoholism Social History Social History Smoking packs per day: 1 Smoking cigarettes per day: 20.0 Years smoked: 50 Smoking pack-years: 50.00 Smoking status: Current every day smoker Tobacco type: cigarettes Second hand tobacco smoke exposure: Yes Alcohol intake: former Substance use: current Substance use type: marijuana Other substance usage details: REC - 1 harvey PHILLIP Last use: 09/23/2023 Do You Feel Safe in your Home?: Yes Lack of Transportation: No Lack of Food: Never True Current Housing: I Have Housing Concerned About Future Housing: No Difficulty Paying Gas/Electric Bills: No Difficulty Paying for Meds: No Currently Unemployed: No Education: Associate Degree Difficulty w/ Childcare or Family Care: No Living arrangements: with family Additional living arrangements comments: [employer] Occupation/Education: retired Gender identity (if verbalized by the patient): Male Spiritual care concerns: No Anes - Eval Final PreProcedure Day of Procedure 05/05/24 10:06 Patient weight: normal Heart: regular rate and rhythm Lungs: decreased breath sounds Airway: Mallampati scale class III Neurological: alert and oriented Last oral intake: >/= 8 hours ASA classification: IV Emergent: no Anesthetic plan: proceed Anesthesia type and monitoring: general GIVS and standard monitoring Results Review: All pre-operative results and documents have been reviewed as part of the pre-operative ev
--- NOTE | 2024-05-05 10:09 | PM.IMHP ---
H&P: HPI History of Present Illness Date/Time: 05/05/24 10:09 Chief Complaint: Magaly catheter in place, pancreatic cancer Narrative: Patient is a 68-year-old gentleman who had a magaly catheter placed for administration chemotherapy for pancreatic cancer in August 2023. He apparently no longer needs the magaly catheter presents today for removal of the magaly catheter. Review of Systems Review of Systems: The remainder of the review of systems to include constitutional, HEENT, cardiovascular, respiratory, GI, , integumentary, musculoskeletal, endocrine, immunologic, hematologic, psychiatric, and neurologic are all negative except for which is mentioned above in the HPI. [facility] Past Medical History Medical History Arthritis Hx of appendicitis Hyperlipidemia Hypertension Pancreatic cancer Surgical History Surgical History History of partial pancreatectomy History of splenectomy Family History Family History Mother Family history of osteoarthritis Family history of alcoholism Dementia Father Family history of alcoholism Social History Social History Smoking packs per day: 1 Smoking cigarettes per day: 20.0 Years smoked: 50 Smoking pack-years: 50.00 Smoking status: Current every day smoker Tobacco type: cigarettes Second hand tobacco smoke exposure: Yes Alcohol intake: former Substance use: current Substance use type: marijuana Other substance usage details: REC - 1 KENJI harvey Last use: 09/23/2023 Do You Feel Safe in your Home?: Yes Lack of Transportation: No Lack of Food: Never True Current Housing: I Have Housing Concerned About Future Housing: No Difficulty Paying Gas/Electric Bills: No Difficulty Paying for Meds: No Currently Unemployed: No Education: Associate Degree Difficulty w/ Childcare or Family Care: No Living arrangements: with family Additional living arrangements comments: [employer] Occupation/Education: retired Gender identity (if verbalized by the patient): Male Spiritual care concerns: No Meds Home Medications and Allergies Home Medications Medication Instructions Recorded Confirmed Type omega 3-zvg-xrr-fish oil 100 1 cap PO DAILY 07/04/22 05/01/24 History mg-160 mg-1,000 mg capsule (Fish Oil) [id number]-ol-[id number] 300 mcg-K 60 1 tablet PO DAILY 08/14/23 05/01/24 History mcg-lycop 600 mcg-lutein 300 mcg tablet (Centrum Silver Men) ondansetron 8 mg disintegrating 8 mg PO Q8H PRN Nausea And Vomiting 09/26/23 05/01/24 History tablet pantoprazole 40 mg tablet,delayed 40 mg PO QAM #100 tabs 10/24/23 05/01/24 Rx release (Protonix) sertraline 50 mg tablet See Rx Instructions .Route 01/16/24 05/05/24 Rx .COMPLEX #100 tabs simvastatin 20 mg tablet See Rx Instructions .Route 01/16/24 05/01/24 Rx .COMPLEX #100 tabs tamsulosin 0.4 mg capsule See Rx Instructions .Route 01/16/24 05/01/24 Rx .COMPLEX #100 caps lisinopril 40 mg tablet 40 mg PO DAILY #90 tabs 04/30/24 05/01/24 Rx aspirin 81 mg tablet,delayed 81 mg PO DAILY 05/01/24 05/01/24 History release Allergies Allergy/AdvReac Type Severity Reaction Status Date / Time No Known Allergies Allergy Mild Verified 05/05/24 10:01 Vital Signs Vital Signs - 24 hr 05/05/24 08:45 Temperature 36.0 C L Pulse Rate 71 Respiratory Rate 14 Blood Pressure 175/77 H Pulse Oximetry 98 Oxygen Delivery Room Air Exam Const: General: comfortable and no acute distress HENMT: Ears: TM's normal bilaterally Face/Nose/Sinus: Normal nares present Mouth: Yes moist mucous membranes Eyes: General: appearance normal, both eyes and all related structures Sclera: sclerae normal Pupils: Equal, round and reactive pupils present EOM: EOMs i
--- NOTE | 2024-05-05 10:18 | WPDHPUPDATE1 ---
History and Physical Update Update Date/Time: 05/05/24 10:18 History and Physical has been reviewed, including an updated exam of the patient. There are NO changes in the patient's condition. Risks, benefits, and alternatives have been discussed and questions answered. Patient agrees to proceed with procedure.
[2024-05-05] MEDS: LIDO 1%/EPINEPHRINE 1:100,000 50 ML VIAL 20 ML INFILTRATE (10:27)
[2024-05-05] MEDS: BUPivacaine HCL 0.5% 10 ML AMP 20 ML INFILTRATE (10:27)
[2024-05-05] MEDS: ceFAZolin 2 GM/D5W 50 ML 2 GM/50 ML BAG IVPB (10:28)
--- NOTE | 2024-05-05 10:59 | W.PM.PROC2 ---
Procedure Note - Detailed Date of Procedure 05/05/24 Pre-op Diagnosis Malignant neoplasm tail of pancreas, magaly catheter in place Post-op Diagnosis Same Procedure Performed Removal right internal jugular vein magaly catheter Surgeon Daniel Sims MD Anesthesia MAC and Local Indications Patient is a 68-year-old gentleman who had pancreatic adenocarcinoma and underwent a distal pancreatectomy. He had received adjuvant chemotherapy and had a magaly catheter placed in August 2023 for the chemotherapy. He now has completed chemotherapy treatments and no longer needs his magaly catheter. Presents now for removal of the magaly catheter. Findings None significant Description of Procedure After informed consent was obtained patient brought to the operating room placed supine position and then IV sedation was administered by anesthesia. The bilateral upper anterior neck and chest was then prepped and draped usual sterile fashion. Time-out was then performed correctly identifying the patient as well as procedure to be performed. Ancef was given for perioperative IV antibiotics. 1% lidocaine with 0.5% Marcaine was then injected along the old scar in the right upper anterior chest and around the subcutaneous port for local anesthetic effect. A scalp was then used to excise out the old scar and then dissection was carried down through the subcutaneous tissues to the hub of the port utilized electrocautery. I then freed up the catheter as it attached to the port circumferentially electrocautery and then with gentle traction on the catheter removed from the right internal jugular vein. I then held pressure the area the right internal jugular vein to achieve hemostasis. The port was then excised at the subcu port pocket utilized electrocautery. Once the port was completely freed it was discarded. I then fulgurated the fibrous port pocket with electrocautery. There was no bleeding from the catheter site. I then irrigated the the port pocket sterile saline solution and then closed the incision utilizing interrupted 3-0 Vicryl sutures in the subcutaneous tissues. This is then followed by a running subcuticular 4-0 Monocryl suture to close the skin edges. Incision was then cleaned and skin glue was applied. The patient tolerated the procedure well no complications. All sponges, needles, and instrument counts were correct at the end procedure. EBL was _5__cc. The patient was awakened and taken to recovery in stable and satisfactory condition. Implants None Estimated Blood Loss 5 Drains No Packing No Pathology None sent Complications No immediate complications Condition Stable Disposition PACU [facility] Billing Surgery - Charge Forward: Surgery Billing
[2024-05-05 11:03] VITALS: BP 169/86; PULSE 77; RESP 12; O2SAT 96
[2024-05-05 11:30] VITALS: BP 169/93; PULSE 66; RESP 16
[2024-05-05 11:54] VITALS: BP 167/68; PULSE 62; RESP 18
== END 2024-05-05 11:57 | disposition home or self-care (01) ==
PROVIDERS: PCP Internal Medicine; Visit Provider Surgery
PROC: (CPT 36589; principal; 2024-05-05 10:15)
DX: Z45.2 Encounter for adjustment and management of vascular access device (principal); Z85.07 Personal history of malignant neoplasm of pancreas; Z92.21 Personal history of antineoplastic chemotherapy; I10 Essential (primary) hypertension; E78.5 Hyperlipidemia, unspecified; Z90.411 Acquired partial absence of pancreas; Z90.81 Acquired absence of spleen; F12.90 Cannabis use, unspecified, uncomplicated; F17.210 Nicotine dependence, cigarettes, uncomplicated
CPT/HCPCS: 36590; J0690; J2405; J2704; J3010; J7120

== ENCOUNTER 2024-07-21 08:12 | Outpatient (CLI) | payer MEDICARE, SELFPAY ==
--- NOTE | ~2024-07-21 | CT_ITS ---
CT of the Abdomen and Pelvis: Indication: Pancreatic tail malignancy Technique: 2.5 mm axial scans were obtained through the abdomen and pelvis following intravenous adm inistration of 100 cc of Omnipaque 350. Dose reduction technique was used on this scan by utilizing a utomated exposure control and iterative reconstruction technique. The dose-length product (DLP) was 4 57.15 mGy-cm. COMPARISON: 04/08/2024 Findings: Scans through the lung bases demonstrate calcified right basilar granulomas. Stable hepatic cysts present. The gallbladder, adrenals and kidneys are within normal limits. Status post splenectomy and distal pancreatectomy. There are atherosclerotic calcifications of the aorta an irregular vessels. No lymphadenopathy. No bowel obstruction or bowel wall thickening. There is no evidence to suggest acute appendicitis. Images through the pelvis were performed. Urinary bladder unremarkable. Prostate gland is enlarged. N o ascites. Impression: No evidence for active malignancy or metastatic disease. Status post splenectomy and distal pancreate ctomy. Enlarged prostate gland. Reviewed, dictated and finalized at location . ADMINISTRATOR Impression: No evidence for active malignancy or metastatic disease. Status post splenectom y and distal pancreatectomy. Enlarged prostate gland.
[2024-07-21 09:11] LABS: Estimated Glomerular Filt Rate > 60
== END 2024-07-21 08:13 | disposition home or self-care (01) ==
PROVIDERS: PCP Internal Medicine; Visit Provider Internal Medicine Hematology & Oncology
DX: C25.2 Malignant neoplasm of tail of pancreas (principal); N40.0 Benign prostatic hyperplasia without lower urinary tract symptoms
CPT/HCPCS: 74177; Q9967

== ENCOUNTER 2024-07-28 10:18 | Outpatient (CLI) | payer MEDICARE, SELFPAY ==
[2024-07-28 10:44] LABS: Basophils Absolute Auto 0.1 K/mm3 (0.0-0.1); Basophils Percent Auto 0.7 % (0.2-1.2); Eosinophils Absolute Auto 0.2 K/mm3 (0-0.3); Eosinophils Percent Auto 2.1 % (0-4.4); Hematocrit 43.6 % (42.0-52.0); Hemoglobin 15.3 g/dL (14.0-18.0); Immature Granulocyte Absolute 0.02 K/mm3 (0.00-0.031); Immature Granulocyte Percent A 0.2 % (0-0.5); Lymphocytes Absolute Auto 4.58 K/mm3 (0.9-3.2); Lymphocytes Percent Auto 45.9 % (18.3-44.2); Mean Corpuscular HGB Conc 35.1 g/dl (32-36); Mean Corpuscular Hemoglobin 34.2 pg (26-34); Mean Corpuscular Volume 97.5 fl (80-100); Mean Platelet Volume 9.2 fl (7.4-10.4); Monocytes Absolute Auto 0.8 K/mm3 (0.1-0.6); Monocytes Percent Auto 8.2 % (2.6-8.5); Neutrophils Absolute Auto 4.3 K/mm3 (1.3-6.7); Neutrophils Percent Auto 42.9 % (45.5-73.1); Platelet Count Result 314 k/mm3 (150-375); Red Blood Count 4.47 M/mm3 (4.6-6.20); Red Cell Distribution Width 14.3 % (11.5-14.5)
[2024-07-28 10:48] LABS: Blood Urea Nitrogen 16 mg/dL (8-26); Carbon Dioxide 27 mmol/L (22-30); Chloride 103 mmol/L (98-109); Estimated Glomerular Filt Rate > 60; Glucose 107 mg/dL (70-105); Ionized Calcium (POC) 1.23 mmol/L (1.11-1.31); Potassium 3.9 mmol/L (3.5-4.9); Sodium 141 mmol/L (138-146)
[2024-07-28 12:06] LABS: Cholesterol 191 mg/dL (0-200); HDL Direct 57 mg/dL; Triglycerides 144 mg/dL (<150)
[2024-07-28 12:09] LABS: Alanine Aminotransferase 25 U/L (6-50); Albumin Level 4.3 g/dL (3.5-5.1); Alkaline Phosphatase 103 U/L (38-126); Anion Gap 4 mmol/L (4-12); Aspartate Amino Transferase 30 U/L (17-59); Bilirubin,Total 0.8 mg/dL (0.2-1.3); Blood Urea Nitrogen 17 mg/dL (9-20); Calcium 9.7 mg/dL (8.4-10.2); Carbon Dioxide 27 mmol/L (22-30); Chloride 107 mmol/L (98-107); Estimated Glomerular Filt Rate > 60; Glucose 105 mg/dL (65-110); Sodium 138 mmol/L (137-145)
[2024-07-28 12:18] LABS: LDL Cholesterol Direct 83 mg/dL
[2024-07-28 12:37] LABS: Prostate Specific Antigen 0.9 ng/mL (< OR = 4.0)
[2024-07-28 13:25] LABS: Folic Acid > 20.0 ng/mL (2.76->20)
== END 2024-07-28 10:19 | disposition home or self-care (01) ==
LOC: ANHLAB 10:19
PROVIDERS: Nurse Practitioner Family; PCP Family Medicine; Visit Provider Internal Medicine Hematology & Oncology
DX: E78.5 Hyperlipidemia, unspecified (principal); Z12.5 Encounter for screening for malignant neoplasm of prostate; Z76.89 Persons encountering health services in other specified circumstances; Z00.00 Encounter for general adult medical examination without abnormal findings; N40.0 Benign prostatic hyperplasia without lower urinary tract symptoms; D75.89 Other specified diseases of blood and blood-forming organs; Z13.21 Encounter for screening for nutritional disorder; C25.2 Malignant neoplasm of tail of pancreas
CPT/HCPCS: 36415; 80047; 80053; 80061; 82607; 82746; 84153; 85025; G0103

== ENCOUNTER 2024-10-20 08:47 | Outpatient (CLI) | payer MEDICARE, SELFPAY ==
--- NOTE | ~2024-10-20 | CT_ITS ---
EXAMINATION: CT abdomen pelvis w con DATE: 10/20/2024 09:28 INDICATION: Malignant neoplasm of tail of pancreas. TECHNIQUE: Computed tomography (CT) of the abdomen and pelvis was performed with 100 mL Omnipaque 350 intravenous contrast. Automated exposure control and iterative reconstruction technique were employe d. The dose-length product was 376.13 mGy-cm. COMPARISON: CT abdomen and pelvis 07/21/2024 FINDINGS: The visualized portions of the lung bases demonstrate mild atelectasis. Calcified bilateral lung nodules are consistent with old granulomatous disease. No pleural effusion. The heart size is n ormal. No pericardial effusion. There are cysts in the liver measuring up to 3.4 cm. 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 The adrenal glands and kidneys are normal. The prostate i s moderately enlarged. There is a right inguinal hernia containing fat. The appendix is not visualize d. There is calcified atherosclerosis of the aorta and many of the other arteries. There are no patho logically enlarged lymph nodes. There is no free intraperitoneal fluid. There is mild lumbar spondylo sis. IMPRESSION: 1. No evidence of metastatic disease. Reviewed, dictated and finalized at location B.
[2024-10-20 09:12] LABS: Estimated Glomerular Filt Rate > 60
--- OUTSIDE RECORDS SUMMARY | 2024-10-20 09:35 | XMS_ITS | Referral Summary ---
Author Organization [facility] Address [address] [place] [address] Care Team Providers Care Field Attendant Name Role Phone Orion Frankel Primary Care Provider Astrid Isbell MD Unavailable [phone] Bob Blake MD Unavailable Unavailable Encounters Date Type Department Care Team Description 08/20/2024 Orders Only [facility] [address] [place] [address] Unknown, Notinfile from Last 3 Months Allergies No known active allergies Medications lisinopril-hydr oCHLOROthiazide (ZESTORETIC) 20-12.5 mg per tablet Take 2 tablets by mouth daily Takes 2 tabs daily Active tamsulosin (FLOMAX) 0.4 mg extended release capsule 1 capsule (0.4 mg total) Active omeprazole (PriLOSEC) 20 mg capsule Take 1 capsule (20 mg total) by mouth daily Active sertraline (ZOLOFT) 50 mg tablet Take 1 tablet (50 mg total) by mouth daily Active omega-3 fatty acids-fish oil 300-1,000 mg capsule Take 1 capsule (1 g total) by mouth daily Active simvastatin (ZOCOR) 20 mg tablet Take 1 tablet (20 mg total) by mouth daily Active senna-docusate (PERICOLACE) 8.6-50 mg Take 1 tablet by mouth 2 (two) times a day 60 tablet 06/12/2023 Active mv-min/folic/K1 /lycopen/lutein (CENTRUM SILVER MEN ORAL) 04/13/2023 Active Active Problems Problem Noted Date Diagnosed Date On antineoplastic chemotherapy 02/06/2024 History of pancreatectomy 07/12/2023 Pancreatic adenocarcinoma 06/20/2023 Assessment & Plan (06/21/2023 2:04 PM CONTACT CENTER DIRECTOR): Follow up with oncology - Avoiding anticoagulation post procedure Abdominal pain 06/20/2023 Assessment & Plan (06/21/2023 2:06 PM CONTACT CENTER DIRECTOR): Patient with pain post procedure, worse after liquids - Continue clear liquids - oxy, morphine prn - started bowel regimen and prn simethicone - Seen by [facility] surgery, planning for admission Insomnia 06/20/2023 Assessment & Plan (06/21/2023 2:06 PM CONTACT CENTER DIRECTOR): Not sleeping well at night, somewhat pain related - Start ramelteon hs Moderate malnutrition 06/20/2023 Assessment & Plan (06/21/2023 2:06 PM CONTACT CENTER DIRECTOR): Recent 15 pound weight loss, due to fluid collection and malignancy - Museum Assistant consult - Monitor weight, 70.3,g admission weight Pancreatic duct leak 05/15/2023 Assessment & Plan (06/21/2023 2:06 PM CONTACT CENTER DIRECTOR): S/p EUS and ERCP 06/20 with biliary. Cipro periop - Continue cipro BID and flagyl - Avoid asa/nsaids for 10 days - patient reports pain worse with liquids, continue clear liquid diet for now - Per GI - Repeat EGD/ERCP in 3 weeks as outpt to remove stents, CT A/P w/ IV contrast before Chronic pancreatitis 05/15/2023 Pancreatic cyst 04/12/2023 Change in bowel habits 03/21/2023 Abdominal pain 01/24/2023 History of pancreatitis 01/24/2023 Weight loss 01/24/2023 Immunizations Immunization Administration Dates Next Due Hib (PRP-T) 05/16/2023 Influenza, Quadrivalent, Hig h Dose, Preservative Free, Intrr 05/16/2023 Meningococcal B, OMV (Bexsero) 06/12/2023,2022 Meningococcal Conjugate (Menveo) 05/16/2023 Pneumococcal Conjugate Pcv20 05/16/2023 Social History Tobacco Use Types Packs/Day Years Used Date Smoking Tobacco: Every Day Cigarettes Tobacco Cessation:Ready to Q uit: Not Asked; Counseling Given: Not Answered Alcohol Use Standard Drinks/Week Comments Yes 0 (1 standard drink = 0.6 oz pur e alcohol) OASIS D0700: Social Isolation Answer Da te Recorded Frequency of experiencing loneliness or isolatio n Never 06/14/2023 OASIS A1250: Transportation Answer Date Recorded Lack of Transportation (Medical) No 06/14/2023 Lack of Transportation (Non-Medical) No 06/14/2023 Patient Unable or Declines to Respond No 06/14/2023 OASIS B1300: Health Literacy Answer Jose e Recorded Frequency of needing help to read materials from doctor or pharmacy Sometimes 06/14/2023 [facility] Utilities Answer Date Recorded In the past 12 months has th e electric, gas, oil, or water company threatened to shut off services in your home? No 06/08/2023 Social Connection and Isolat ion Panel [NHANES] Answer Date Recorded In a typical week, how many times do you talk on the phone with family, friends, or neighbors? More than three times a week 06/08/2023 How often do you get togethe r with friends or relatives? More than three times a week 06/08/2023 How often do you attend chur ch or alevism services? Never 06/08/2023 Do you belong to any clubs o r organizations such as nondenominational groups, unions, fraternal or athletic groups, or school groups? No 06/08/2023 How often do you attend meet ings of the clubs or organizations you belong to? Never 06/08/2023 Are you , , di vorced, , never , or living with a partner? 06/08/2023 AUDIT-C Answer Date Recorded Q1: How often do you have a drink containing alc ohol? Never 07/11/2023 Average Number of Drinks Not on file 023 Frequency of Binge Drinking Not on file 06/14 Overall Financial Resource Strain (CARDIA) Answe r Date Recorded How hard is it for you to pa y for the very basics like food, housing, medical care, and heating? Not hard at all 06/08/2023 PHQ-2 Answer Date Recorded PHQ-2 Total Score (If total score is 3 or more points, staff should administer the PHQ-9) 0 06/20/2023 Hunger Vital Sign Answer Date Recorded Within the past 12 months, y ou worried that your food would run out before you got the money to buy more. Never true 06/08/20 23 Within the past 12 months, t he food you bought just didn't last and you didn't have money to get more. Never true 06/08/2023 PRAPARE - Transportation Answer Date Re corded In the past 12 months, has l ack of transportation kept you from medical appointments or from getting medications? No 05/14 In the past 12 months, has l ack of transportation kept you from meetings, work, or from getting things needed for daily living? No 06/08/2023 Housing Stability Vital Sign Answer Jose e Recorded In the last 12 months, was t here a time when you were not able to pay the mortgage or rent on time? No 06/08/2023 In the last 12 months, how many places have you lived? 1 06/08/2023 In the last 12 months, was t here a time when you did not have a steady place to sleep or slept in a fdc (including now)? No 06/08/2023 Personal Safety Answer Date Recorded Have you ever been in or are you currently in a harmful physical or emotional relationship or is someone making you feel afraid or unsafe? Denies 07/11/2023 Sex and Gender Information Value Date Recorded Sex Assigned at Not on file Legal Sex Male 10:48 PM CONTACT CENTER DIRECTOR Gender Identity Not on file Sexual Orientation Not on file Last Filed Vital Signs Vital Sign Reading Time Taken Comments Blood Pressure 149/80 02/06/2024 10:51 AM CDT Pulse 81 02/06/2024 10:51 AM CDT Temperature 35.3 C (95.5 F) 02/06/2024 10:51 AM CDT Respiratory Rate 21 07/11/2023 5:07 PM CONTACT CENTER DIRECTOR Oxygen Saturation 97% 07/11/2023 5:07 PM CONTACT CENTER DIRECTOR Inhaled Oxygen Concentration - - Weight 78 kg (172 lb) 02/06/2024 10:51 AM CDT Height 177.8 cm (5' 10 ) 02/06/2024 10:51 AM CDT Body Mass Index 24.68 02/06/2024 10:51 AM CDT Plan of Treatment Not on file Medical Devices Explanted Type Area Pediatric Dietician Device Identifier Shelf Expiration Date Model / Serial / Lot Sensor [employer] [place] Flexi-Stent 5fr 3cm Small Pigtail Flexible .035in Stent 6551 - [id number] Implanted:Qty: 1 on 06/20/2023 by Dharmesh Ruby MD at [facility] Explanted:Qty: 1 on 07/11/[address] [facility] Stent Pancreas Sensor [employer] 02/11/2028 6551 / / [id number] Description:Not present upon start of procedure [employer] Wanda 10fr 5cm Biliary Stent [id number] - [id number] Implanted:Qty: 1 on 06/20/2023 by Dharmesh Ruby MD at [facility] Explanted:Qty: 1 on 07/11/2023 by Edu Lam MD at [facility] Stent N/A: Bile Duct [employer] Wanda 03/15/2025 [id number] / / [id number] [employer] W[employer] Axios 10 X 10 Stent Delivery System [id number] - [id number] Implanted:Qty: 1 on 06/20/2023 by Dharmesh Ruby MD at [facility] Explanted:Qty: 1 on 07/11/2023 by Edu Lam MD at [facility] Stent N/A: Duodenum [employer] Wanda 01/23/2025 [id number] / / [id number] [employer] Wanda 10fr 5cm Biliary Double Pigtail Stent [id number] - [id number] Implanted:Qty: 1 on 06/20/2023 by Dharmesh Ruby MD at [facility] Explanted:Qty: 1 on 07/11/2023 by Astrid Isbell MD at [facility] Stent N/A: Duodenum [employer] Wanda 04/24/2025 [id number] / / [id number] Description:Implanted throug h axios Procedures Procedure Name Priority Date/Time Associated Diagnosis Comments SURGICAL PATHOLOGY Routine 08/20/2024 2: [address] DIRECTOR CT ABDOMEN PELVIS W CONTRAST Schedule Routine, Read Routine (OP Routine) 06/29/2023 3:21 PM CONTACT CENTER DIRECTOR Pancreatic duct leak PSA, TOTAL AND FREE Routine 05/16/2023 3 :40 AM CDT COLONOSCOPY 04/05/2023 11:31 AM CDT from Last 3 Months or Most Recently Relevant to Health Maintenance Results * Surgical pathology (08/20/2024 2:00 PM CONTACT CENTER DIRECTOR) Skin, shave biopsy 08/20/2024 2:00 PM CONTACT CENTER DIRECTOR 08/22/2024 6:55 AM CONTACT CENTER DIRECTOR Narrative 08/25/2024 1:27 PM CONTACT CENTER DIRECTOR EPIC results best viewed via link to PDF [facility] [address] [place] [address], [address], [place] [address] [email or web address] Note to Patients: This report may contain a detailed description of human tissue sent by a health care provider to the laboratory for pathologic evaluation. The content of this report is essential for diagnosis and may provide important critical findings. This information may be unfamiliar to patients to review without a medical professional present. It is advised that the patient review this report in the presence of a health care provider who can answer questions and explain the details. FINAL REPORT Patient Information: PATIENT NAME: TOMMY ZHAO SEX: M : 1955 (Age: 69) Specimen Information: COLLECTED: 08/20/2024 RECEIVED: 08/22/2024 REPORTED: 08/25/2024 Submitting Physician Information: Katelynn Acharya [facility], [address] [place] [address], DERMATOPATHOLOGY REPORT RESULTS DIAGNOSIS: SKIN, INFERIOR THORACIC SPINE, SHAVE BIOPSY: SEBORRHEIC KERATOSIS, INFLAMED exr/lac By this signature, I attest that the above diagnosis is based upon my personal examination of the slides(and/or other material indicated in the diagnosis). Breonna Antoine M.D. Report Electronically Reviewed and Signed Out By Breonna Antoine M.D. 08/25/2024 13:27:41 CLINICAL INFORMATION NEOPLASM OF UNCERTAIN BEHAVIOR VS. SKI VS. SCC SPECIMEN DATA MICROSCOPIC DESCRIPTION: There is hyperkeratosis, papillated and reticulated epithelial hyperplasia, horn pseudocysts and an inflammatory cell infiltrate. (L82.0) GROSS DESCRIPTION: Received in a formalin-containing bottle is a superficial fragment of pale montes, dome-shaped and semi-translucent skin measuring 1.1 by 1.1 by 0.2 cm. The surgical margin is inked blue. The specimen bears a pale montes, raised, crusted area measuring 0.7 by 0.3 cm. The specimen is sectioned into 5 pieces and submitted entirely in a single cassette. Due to shrinkage, measurements may be different than those at time of procedure. exr/anc ICD-9 A; ZSD.1411 Clerical Data A; 39102 The characteristics of special, immunohistochemical, and immunofluorescence stains and in-situ hybridization tests performed by the [facility] were deemed acceptable in ongoing quality assurance group leader measures and in compliance with regulations drawn from the Clinical Laboratory Improvement Act gb7364 (CLIA '88). Control reactions for all stains performed were deemed adequate and appropriate by a pathologist prior to evaluation of patient tissue. Some diagnoses were rendered with the assistance of laboratory-developed tests utilizing analyte-specific reagents; the performance characteristic of these tests were determined by [facility] and are not cleared or approved by the [place] Food an Drug administration. Laboratory developed test may only be performed in a facility that is certified by the [facility] as a high-complexity laboratory under CLIA '88. These tests are used for clinical purposes and are not investigational. us Notinfile Unknown LAB PATHOLOGY ORDERABLES Final Result * CT Abd/Pelvis with contrast (06/29/2023 3:21 PM CONTACT CENTER DIRECTOR) Anatomical Region Laterality Modality Body N/A Computed Tomogra phy 06/29/2023 3:49 PM CONTACT CENTER DIRECTOR Impressions 06/29/2023 3:49 PM CONTACT CENTER DIRECTOR 1. Interval cyst gastrostomy with successful decompression of peripancreatic walled off fat necrosis. 2. Interval placement of stent in the common duct without ductal dilatation. Electronically signed by: Gato Chang MD Narrative 06/29/2023 3:49 PM CONTACT CENTER DIRECTOR EXAMINATION: Computed tomography of the abdomen and pelvis with intravenous contrast HISTORY: Pancreatic duct leak after distal pancreatectomy TECHNIQUE: Transaxial computed tomographic images of the abdomen and pelvis were obtained with intravenous contrast according to the standard protocol after the uneventful administration of 75 mL Opti-Ray 350 intravenous contrast. COMPARISON: CT dated 06/20/2023 FINDINGS: Lower chest: Calcified granulomas are present in the lung bases. Linear atelectasis is present. The heart is not enlarged. Hepatobiliary: Multiple hepatic cysts are unchanged. Liver is unremarkable. The gallbladder is normal. A small amount of pneumobilia is present in the common duct. There is a new stent within the distal common duct terminating in the 3rd portion of the duodenum. Pancreas: Postoperative changes of distal pancreatectomy are redemonstrated. There has been interval cyst gastrostomy stent for evacuation of walled off at necrosis along the pancreatic stump. A double-J catheter courses through the stent with loops in the decompressed collection and distal stomach. Trace gas and fluid are present within the residual cavity. Spleen: Absent Kidneys: Normal. Adrenals: Normal. Gastrointestinal: There are no dilated loops of small or large bowel. Mesentery/Retroperitoneum: There is mild mesenteric fat stranding at the surgical site. Trace free fluid is present in the pelvis. Vasculature: Aorta and branch vessels are atherosclerotic. Pelvis: The urinary bladder appears normal. Prostate is normal. Bones/Soft Tissues: No suspicious lytic or blastic bone lesion. No suspicious soft tissue lesion identified. Procedure Note Gerald Chang MD - 06/29/2023 EXAMINATION: Computed tomography of the abdomen and pelvis with intravenous contrast HISTORY: Pancreatic duct leak after distal pancreatectomy TECHNIQUE: Transaxial computed tomographic images of the abdomen and pelvis were obtained with intravenous contrast according to the standard protocol after the uneventful administration of 75 mL Opti-Ray 350 intravenous contrast. COMPARISON: CT dated 06/20/2023 FINDINGS: Lower chest: Calcified granulomas are present in the lung bases. Linear atelectasis is present. The heart is not enlarged. Hepatobiliary: Multiple hepatic cysts are unchanged. Liver is unremarkable. The gallbladder is normal. A small amount of pneumobilia is present in the common duct. There is a new stent within the distal common duct terminating in the 3rd portion of the duodenum. Pancreas: Postoperative changes of distal pancreatectomy are redemonstrated. There has been interval cyst gastrostomy stent for evacuation of walled off at necrosis along the pancreatic stump. A double-J catheter courses through the stent with loops in the decompressed collection and distal stomach. Trace gas and fluid are present within the residual cavity. Spleen: Absent Kidneys: Normal. Adrenals: Normal. Gastrointestinal: There are no dilated loops of small or large bowel. Mesentery/Retroperitoneum: There is mild mesenteric fat stranding at the surgical site. Trace free fluid is present in the pelvis. Vasculature: Aorta and branch vessels are atherosclerotic. Pelvis: The urinary bladder appears normal. Prostate is normal. Bones/Soft Tissues: No suspicious lytic or blastic bone lesion. No suspicious soft tissue lesion identified. IMPRESSION: 1. Interval cyst gastrostomy with successful decompression of peripancreatic walled off fat necrosis. 2. Interval placement of stent in the common duct without ductal dilatation. Electronically signed by: Gato Chang MD Astrid Isbell MD IM CT PROCEDURES Magdalene l Result * PSA, total and free (05/16/2023 3:40 AM CDT) PSA-free 0.2 ng/mL [facility] PSA-Total 0.78 <=4.5 ng/mL [facility] PSA-Free/Total Ratio See Footnote [facility] Comment: Ratio not calculated because clinical usefulness is not defined except in range of total PSA 4.0-10.0 ng/mL. ADDITIONAL INFORMATION The testing method is an electrochemiluminescence assay manufactured by [employer] and performed on the Modular or Robert system. Values obtained with different assay methods or kits may be different and cannot be used interchangeably. Test results cannot be interpreted as absolute evidence for the presence or absence of malignant disease. Test Performed by: [facility] [address] [place] [address] Drivers License Examiner: Gio Melchor M.D. Ph.D.; CLIA# [id number] Blood 05/16/2023 3:40 AM CDT 05/16/2023 3:48 AM CDT us Ling Jimenez DIRECTOR [facility] LAB BLOOD ORDERABLES Final Result [facility] Department [place] [address] * COLONOSCOPY (04/05/2023 11:31 AM CDT) Anatomical Region Laterality Modality Other Narrative Procedure Note Astrid Isbell MD - 04/05/2023 11:31 AM CDT ENDOSCOPY LAB Patient Name: Tommy Zhao Procedure Date: 04/05/2023 11:31 AM Admit Type: Outpatient Room: [facility] Date of : 1955 Instrument Name: [id number] Gender: Male Note Status: Finalized Procedure: Colonoscopy Indications: Changes in bowel habits, diarrhea, with h/o some constipation Providers: Astrid Isbell M.D. Referring MD: Orion Frankel PA-C Medicines: Monitored Anesthesia Care Complications: No immediate complications. Estimated Blood Loss: Estimated blood loss: none. Procedure: Pre-Anesthesia Assessment: - Prior to the procedure, a History and Physicalwas performed, and patient medications, allergies and sensitivities were reviewed. The patient'stolerance of previous anesthesia was reviewed. - The risks and benefits of the procedure and the sedation options and risks were discussed with the patient. All questions were answered and informed consent was obtained. - Immediately prior to administration ofmedications, the patient was re-assessed for adequacy to receive sedatives. - Sedation was administered by an anesthesia professional. Deep sedation was attained. The benefits, risks and alternatives of theprocedure and sedation were discussed and informed consentwas obtained. All questions were answered. Please referto the signed informed consent document in the medical record. The scope was passed under direct vision.The Colonoscope was introduced through the anus and advanced to the the cecum, identified byappendiceal orifice and ileocecal valve. The colonoscopy was performed without difficulty. The patient tolerated the procedure well. The quality of the bowel preparation was adequate to identify polyps. The quality of the bowel preparation was evaluatedusing the BBPS (Lincoln Bowel Preparation Scale) withscores of: Right Colon = 2 (minor amount of residual staining, small fragments of stool and/or opaque liquid, but mucosa seen well), Transverse Colon = 2 (minor amount of residual staining, small fragmentsof stool and/or opaque liquid, but mucosa seen well)and Left Colon = 2 (minor amount of residual staining, small fragments of stool and/or opaque liquid, but mucosa seen well). The total BBPS score equals 6.The quality of the bowel preparation was fair. Thebowel preparation used was GoLYTELY via split dose instruction. Right side was examined twice on withdrawal. Extreme diligence was made to ensure examination behind the fold using good withdraw technique with adequate insufflation and washing of the debris. Bowel prep was administered using asplit dose. Bowel prep was administered using a splitdose. Findings: The perianal and digital rectal examinations were normal. Mild induration noted at the parasacral area in a small area, no fluctuation noted Two sessile polyps were found in the descending colon. The polypswere 5 to 6 mm in size. These polyps were removed with a cold snare.Resection and retrieval were complete. The pathology specimen was placed into Bottle C. A 5 mm polyp was found in the rectum. The polyp was sessile. Thepolyp was removed with a cold snare. Resection and retrieval were complete. The pathology specimen was placed into Bottle D. The terminal ileum appeared normal. Biopsies were taken with a cold forceps for histology. The pathology specimen was placed into BottleA. The exam was otherwise without abnormality.Random colon biopsies obtained Bottle B. Non-bleeding internal hemorrhoids were found during retroflexion. The hemorrhoids were medium-sized. No additional abnormalities were found on retroflexion. Impression: - Preparation of the colon was fair. - Two 5 to 6 mm polyps in the descending colon, removed with a cold snare. Resected andretrieved. - One 5 mm polyp in the rectum, removed with a cold snare. Resected and retrieved. - The examined portion of the ileum was normal. Biopsied. - The examination was otherwise normal. Randomcolon biopsies obtained - Non-bleeding internal hemorrhoids. Recommendation: - Discharge patient to home. - Patient has a contact number available for emergencies. The signs and symptoms of potential delayed complications were discussed with thepatient. Return to normal activities tomorrow. Written discharge instructions were provided to thepatient. - Resume previous diet. - Continue present medications. - Await pathology results. - The findings and recommendations were discussedwith the patient. - In the unusual situation that you developabdominal pain, bleeding or other significant problems inthe days following this procedure please call my office [phone]). After hours and eveningsplease call [phone] and speak to the GI fellow oncall fellow. Please tell the fellow that Dr. Isbell did your procedure and that you were instructed to have the fellow call me or the physician covering for meto discuss the management of your condition. If youhave an urgent problem, [facility] and have the ER doctor call my office duringthe day or the GI fellow after hours and weekends to arrange admission or transfer to our facility.Please bring this report with you if you go to theemergency room. -DW pt to increase Gabapentin 300mg TID - Repeat colonoscopy in 5 years for surveillance (based on path). Attending Participation: I personally performed the entire procedure. Electronically signed by Astrid Isbell MD Astrid Isbell M.D. 04/05/2023 12:25:35 PM This document was signed electronically. Number of Addenda: 0 Note Initiated On: 04/05/2023 11:31 AM Scope In: Scope Out: Astrid Isbell MD ENDOSCOPY PROCEDURES F inal Result from Last 3 Months or Most Recently Relevant to Health Maintenance Insurance MEDICARE SOL[employer]IONS [facility] MEDIC[facility] Address: [facility] [address] [place] [address] MEDICARE SOLUTIONS [facility] MEDICARE Address: [facility] [address] [place] [address] Advance Directives For more information, please contact: [phone] * Full Code (Latest Code Status on File) Date Activated Date Inactivated Comments 07/11/2023 1:07 PM 07/11/2023 9:31 PM * Full Code Date Activated Date Inactivated Comments 06/20/2023 2:06 PM 06/22/2023 2:29 PM * Full Code Date Activated Date Inactivated Comments 06/07/2023 8:38 PM 06/12/2023 6:46 PM * Full Code Date Activated Date Inactivated Comments 05/15/2023 5:29 AM 05/16/2023 5:34 PM * Full Code Date Activated Date Inactivated Comments 04/26/2023 8:59 AM 04/26/2023 3:54 PM Care Teams Field Attendant Relationship Specialty Start Date End Date Orion Frankel PA [address] [facility] [address] [place] [address] PCP - General Physician Student Accounts Coordinator 12/28/22 Astrid Isbell MD 1 [facility] [place] [address] Referring Physician Gastroenterology 06/22/23 Bob Blake MD 1 [facility] [place] [address] Medical Oncologist Hematology and Oncology 08/08/23
--- OUTSIDE RECORDS SUMMARY | 2024-10-20 09:35 | XMS_ITS | Clinical Summary ---
Author Organization [facility] Address [address] [place] [address] Care Team Providers Care Leaf Stripper Name Role Phone Andra Huynh MD Primary Care Provider [phone] Source Comments [facility],non-owned Affiliates and Associated Physician Practices is amultiple site organization consisting of ambulatory clinics and hospital sitesin [place], [place], [place] and [place]. This disclosure is being madepursuant to the Care Everywhere program and may not contain all information available regarding this patient. Last updated 18.[facility] Allergies No known active allergies Medications * Be aware that medications may not be up to date on this document. Alwaysverify current medications with the patient. Medication Sig Dispensed Refills Start Date End Date Status Fenofibrate (LIPOFEN) 150 MG CAPSIndications:H LD (hyperlipidemia) Take 1 Cap by mouth daily with food. 84 0 12/06/2009 Active quinapril (ACCUPRIL) 20 MG tablet Take 1 Tab by mouth daily. 90 Tab 3 07/25/2010 Active azithromycin (ZITHROMAX) 250 mg arnie Take by mouth. 2 tablets day 1, then 1 tablet daily for 4 days 1 Tab 0 08/11/2010 Active hydrocortisone (ANUSOL-HC) 25 MG suppository Insert 1 Suppository into the rectum 2 times daily. 12 Suppository 1 10/17/2010 Active ciprofloxacin (CIPRO) 250 MG tablet Take 1 Tab by mouth 2 times daily. 14 Tab 0 01/12/2011 Active Active Problems Problem Noted Date Diagnosed Date Pleuritic chest pain 03/28/2010 Screening for condition 10/08/2009 Overview (05/13/2015): Adult Abstraction Problem List Screening PSA: Result: Not avail in chart Date: 04/27/08 0.9 Osteoarthritis of hip Overview (01/04/2015): Disc disease, degenerative, cervical HLD (hyperlipidemia) HTN (hypertension) Social History Tobacco Use Types Packs/Day Years Used Date Smoking Tobacco: Passive Smo ke Exposure - Never Smoker Cigarettes Comments:using Nicotine patc h Sex and Gender Information Value Date Recorded Sex Assigned at Not on file Gender Identity Not on file Sexual Orientation Not on file Last Filed Vital Signs Vital Sign Reading Time Taken Comments Blood Pressure 130/70 03/28/2010 3:37 PM CDT Pulse 64 03/28/2010 3:37 PM CDT Temperature - - Respiratory Rate 12 03/28/2010 3:37 PM CDT Oxygen Saturation - - Inhaled Oxygen Concentration - - Weight 96.9 kg (213 lb 9.6 oz) 03/28/2010 3:37 P M CDT Height 177.8 cm (5' 10 ) 03/28/2010 3:37 PM CDT Body Mass Index 30.65 03/28/2010 3:37 PM CDT Plan of Treatment Health Maintenance Due Date Last Done Comments COLOGUARD (AGES 45-75) - COL ON CA SCREENING 1955 COLON MONITORING 1955 COLONOSCOPY - COLON CA SCREENING 1957 CT COLONOGRAPHY - COLON CA SCREENING 1955 Colorectal Cancer Screening 1955 FIT - COLON CA SCREENING 1955 FLEX SIG - COLON CA SCREENING 1955 HEPATITIS C SCREENING 05/22/1975 DTAP/TDAP/TD VACCINES (1 - Tdap) 1976 PNEUMOCOCCAL VACCINE 50+ (1 of 1 - PCV) 2007 ZOSTER VACCINE (1 of 2) 2007 LIPID TESTING 02/19/2015 02/19/2010, 11/27/2009 COVID-19 VACCINE (1 - 2023-2 5 season) 2024 INFLUENZA VACCINE (#1) 2024 DEPRESSION SCREENING 08/13/2024 Respiratory Syncytial Virus (RSV) Vaccine Pt: or over 60 yrs (1 - 1-dose 75+ series) 2032 HEPATITIS B VACCINE Aged Out No longe r eligible based on patient's age to complete this topic HIB VACCINE Aged Out No longer eligi ble based on patient's age to complete this topic HPV VACCINE Aged Out No longer eligi ble based on patient's age to complete this topic MENINGOCOCCAL (Group B) VACCINE Aged Out No longer eligible b ased on patient's age to complete this topic MENINGOCOCCAL VACCINE Aged Out No magalis lita eligible based on patient's age to complete this topic Procedures Procedure Name Priority Date/Time Associated Diagnosis Comments LIPID PROFILE W LDL/HDL RATIO Routine 02/19/2010 8:25 AM CDT Hld (Hyperlipidemia) from Last 3 Months or Most Recently Relevant to Health Maintenance Results * (ABNORMAL) LIPID PROFILE W LDL/HDL (PO REF LAB) (02/19/2010 8:25 AM CDT) Cholesterol 212(H) 100 - 199 mg/dL [facility] ACCOUNT BILL Triglycerides 117 0 - 149 mg/dL [facility] ACCOUNT BILL HDL Cholesterol 54 >39 mg/dL [facility] ACCOUNT BILL Comment: According to ATP-III Guidelines, HDL-C >59 mg/dL is considered a negative risk factor for CHD. VLDL Calculated 23 5 - 40 mg/dL [facility] ACCOUNT BILL LDL Calculated 135(H) 0 - 99 mg/dL [facility] ACCOUNT BILL LDL/HDL Ratio 2.5 0.0 - 3.6 ratio units [facility] ACCOUNT BILL BLOOD SPECIMEN / Unknown 02/19/2010 8:25 AM CDT 02/19/2010 6:33 PM CDT Narrative Resulting Agency Comment [facility] [address] [id number] Juwan Santiago MD LAB - CHEMISTRY STACEY JEAN [facility] ACCOUNT BILL from Last 3 Months or Most Recently Relevant to Health Maintenance Care Teams Leaf Stripper Relationship Specialty Start Date End Date Andra Huynh MD PCP - General 10/29/19
--- OUTSIDE RECORDS SUMMARY | 2024-10-20 09:35 | XMS_ITS | Clinical Summary ---
Author Organization [facility] Address [address] [place] [address] Care Team Providers Care Fiscal Technician Name Role Phone Orion Frankel Primary Care Provider Astrid Isbell MD Unavailable [phone] Bob Blake MD Unavailable Unavailable Allergies No known active allergies Medications lisinopril-hydr [...] 06/20/2023 Assessment & Plan (06/21/2023 2:04 PM FOUNTAIN PEN TURNER): Follow up with oncology - Avoiding anticoagulation post procedure Abdominal pain 06/20/2023 Assessment & Plan (06/21/2023 2:06 PM FOUNTAIN PEN TURNER): Patient with pain post procedure, worse after liquids - Continue clear liquids - oxy, morphine prn - started bowel regimen and prn simethicone - Seen by [facility]B surgery, planning for admission Insomnia 06/20/2023 Assessment & Plan (06/21/2023 2:06 PM FOUNTAIN PEN TURNER): Not sleeping well at night, somewhat pain related - Start ramelteon hs Moderate malnutrition 06/20/2023 Assessment & Plan (06/21/2023 2:06 PM FOUNTAIN PEN TURNER): Recent 15 pound weight loss, due to fluid collection and malignancy - [employer] consult - Monitor weight, 70.3,g admission weight Pancreatic duct leak 05/15/2023 Assessment & Plan (06/21/2023 2:06 PM FOUNTAIN PEN TURNER): S/p EUS and ERCP 06/20 with biliary. [...] History of pancreatitis 01/24/2023 Weight loss 01/24/2023 Encounters Date Type Department Care Team Description 08/20/2024 Orders Only [facility] [address] [place] [address] Unknown, Notinfile from Last 3 Months Immunizations Immunization Administration Dates Next Due Hib (PRP-T) 05/16/2023 Influenza, Quadrivalent, Hig h Dose, Preservative Free, Intrr 05/16/2023 Meningococcal B, OMV (Bexsero) 06/12/2023,2022 Meningococcal Conjugate (Menveo) 05/16/2023 Pneumococcal Conjugate Pcv20 05/16/2023 Surgical History Surgery Date Site/Laterality Comments WISDOM TOOTH EXTRACTION APPENDECTOMY COLONOSCOPY UPPER GASTROINTESTINAL ENDOSCOPY PANCREATECTOMY ERCP Medical History Medical History Date Comments Hypertension Infectious viral hepatitis GERD (gastroesophageal reflux disease) Hyperlipidemia Colon polyp Arthritis Pancreatitis Pancreatic duct leak Family History Medical History Relation Name Comments Prostate cancer Brother Alcohol abuse Father Colon cancer Maternal Grandfather Hypertension Mother Stroke Mother Relation Name Status Comments Brother Father Maternal Grandfather Mother Social History Tobacco Use Types Packs/Day Years [...] materials from doctor or pharmacy Sometimes 06/14/2023 [facility] Utilities Answer Date Recorded In the past 12 months has [employer], gas, oil, or water [employer] threatened to shut off services in your [...] often do you attend chur ch or anabaptist services? Never 06/08/2023 Do you belong to any clubs o r organizations such as voodoo groups, unions, fraternal or athletic groups, or [...] place to sleep or slept in a mcfp (including now)? No 06/08/2023 Personal Safety Answer Date Recorded Have you ever been in or are you currently in a harmful physical or emotional relationship or is someone making you feel afraid or unsafe? Denies 07/11/2023 Sex and Gender Information Value Date Recorded Sex Assigned at Not on file Legal Sex Male 10:48 PM [facility] P[facility] T[facility]NER Gender Identity Not on file Sexual Orientation Not on file Obstetrics History Last Filed Vital Signs Vital Sign Reading Time Taken Comments Blood Pressure 149/80 02/06/2024 10:51 AM CDT Pulse 81 02/06/2024 10:51 AM CDT Temperature 35.3 C (95.5 F) 02/06/2024 10:51 AM CDT Respiratory Rate 21 07/11/2023 5:07 PM [facility]NER Oxygen Saturation 97% 07/11/2023 5:07 PM [facility] Inhaled Oxygen Concentration - - Weight 78 kg (172 lb) 02/06/2024 10:51 AM CDT Height 177.8 cm (5' 10 ) 02/06/2024 10:51 AM CDT Body Mass Index 24.68 02/06/2024 10:51 AM CDT Plan of Treatment Health Maintenance Due Date Last Done Comments Hepatitis C Screening 1955 DTaP/Tdap/Td Vaccine (1 - Tdap) 1968 Hepatitis B Screening 1975 Zoster Vaccine (1 of 2) 2007 Well Visit 65+ 2022 Covid-19 Vaccine (6 - 2023-2 5 season) 2024 05/29/2022, 11/22/2021, 05/19/2021, Additional history exists Influenza Vaccine (#1) 2024 , 05/29/2022, 05/19/2021, Additional history exists Depression Screening 06/20/2024 06/20/2023, 06/20/2023, 05/15/2023 Fall Risk Assessment 07/11/2024 07/11/2023 Prostate Cancer Screening-PSA 05/16/2025 05/16/2023 Colon Cancer Screening-Colonoscopy 04/05/20332022 Pneumococcal vaccine 65+ Completed 05/16/2023 Abdominal Aortic Aneurysm (A AA) Screen Completed 06/29/2023, 06/12/2023 Medical Devices Explanted Type Area Cat Tender Device Identifier Shelf Expiration Date Model / Serial / Lot [employer] [place] Flexi-Stent 5fr 3cm Small Pigtail Flexible .035in Stent 6551 - [id number] Implanted:Qty: 1 on 06/20/2023 by Dharmesh Ruby MD at [facility] Explanted:Qty: 1 on 07/11/2023 at [facility] Stent Pancreas [employer] 02/11/2028 [id number] / / [id number] Description:Not present upon start of procedure [employer] Wanda 10fr 5cm Biliary Stent [id number] - [id number] Implanted:Qty: 1 on 06/20/2023 by Dharmesh Ruby MD at [facility] Explanted:Qty: 1 on 07/11/2023 by Edu Lam MD at [facility] Stent N/A: Bile Duct [employer] Wanda 03/15/2025 [id number] / / [id number] [employer] Wanda Axios 10 X 10 Stent Delivery System [id number] - [id number] Implanted:Qty: 1 on 06/20/2023 by Dharmesh Ruby MD at [facility] Explanted:Qty: 1 on 07/11/2023 by Edu Lam MD at [facility] Stent N/A: Duodenum [employer] Wanda 01/23/2025 [id number] / / [id number] [employer] Wanda 10fr 5cm Biliary Double Pigtail Stent [id number] - [id number] Implanted:Qty: 1 on 06/20/2023 by Dharmesh Ruby MD at [facility] Explanted:Qty: 1 on 07/11/2023 by Astrid Isbell MD at [facility] Stent N/A: Duodenum [employer] Wanda 04/24/2025 [id number] / / [id number] Description:Implanted throug h axios Procedures Procedure Name Priority Date/Time Associated Diagnosis Comments SURGICAL PATHOLOGY Routine 08/20/2024 2: [address] [address] ABDOMEN PELVIS W CONTRAST Schedule Routine, Read Routine (OP Routine) 06/29/2023 3:21 PM [facility] Pancreatic duct leak PSA, TOTAL AND FREE Routine 05/16/2023 3 :40 AM CDT COLONOSCOPY 04/05/2023 11:31 AM CDT from Last 3 Months or Most Recently Relevant to Health Maintenance Results * Surgical pathology (08/20/2024 2:00 PM [facility]) Skin, shave biopsy 08/20/2024 2:00 PM [facility] 08/22/2024 6:55 AM [facility] Narrative 08/25/2024 1:27 PM [facility] EPIC results best viewed via link to PDF [facility], [address], [place] [address] [email or web address] Note to Patients: This report may contain [...] 08/22/2024 REPORTED: 08/25/2024 Submitting Physician Information: Katelynn Acharya, [facility], [address] [place] [address], DERMATOPATHOLOGY REPORT RESULTS DIAGNOSIS: SKIN, INFERIOR THORACIC [...] exr/anc ICD-9 A; ZSD.1411 Clerical Data A; 44917 The characteristics of special, immunohistochemical, and immunofluorescence stains and in-situ hybridization tests performed by the [facility] were deemed acceptable in ongoing vice president quality improvement measures and in compliance with regulations drawn from the Clinical Laboratory Improvement Act hw5906 (CLIA '88). Control reactions for all stains performed were deemed adequate and appropriate by a pathologist prior to evaluation of patient tissue. Some diagnoses were rendered with the assistance of laboratory-developed tests utilizing analyte-specific reagents; the performance characteristic of these tests were determined by [facility] and are not cleared or approved by the [place] Food an Drug administration. Laboratory developed test may only be performed in a facility that is certified by the [facility] as a high-complexity laboratory under CLIA '88. These tests are used for clinical purposes and are not investigational. us Notinfile Unknown LAB PATHOLOGY ORDERABLES Final Result * CT Abd/Pelvis with contrast (06/29/2023 3:21 PM [facility]) Anatomical Region Laterality Modality Body N/A Computed Tomogra phy 06/29/2023 3:49 PM [facility] Impressions 06/29/2023 3:49 PM [facility] 1. Interval cyst gastrostomy with successful decompression of peripancreatic walled off fat necrosis. 2. Interval placement of stent in the common duct without ductal dilatation. Electronically signed by: Gato Chang MD Narrative 06/29/2023 3:49 PM [facility] EXAMINATION: Computed tomography of the abdomen and [...] by: Gato Chang MD Astrid Isbell MD IMG CT PROCEDURES Magdalene l Result * PSA, total and free (05/16/2023 3:40 AM CDT) Pathologist [facility] PSA-free 0.2 ng/mL [facility] PSA-Total 0.78 <=4.5 ng/mL [facility] PSA-Free/Total Ratio See Footnote [facility] Comment: Ratio not calculated because clinical usefulness [...] absence of malignant disease. Test Performed by: [place] [address] Party Plan Sales Unit Sales Leader: Gio Melchor M.D. Ph.D.; CLIA# [id number] Blood 05/16/2023 3:40 AM CDT 05/16/2023 3:48 AM CDT Ling Jimenez NP LAB BLOOD ORDERABLES Final Result [facility] Department [place] [address] * COLONOSCOPY (04/05/2023 11:31 AM CDT) Anatomical Region Laterality Modality Other Narrative Procedure Note Astrid Isbell MD - 04/05/2023 11:31 AM CDT ENDOSCOPY LAB Patient Name: Tommy Zhao Procedure Date: 04/05/2023 11:31 AM Admit Type: Outpatient Room: [facility] Date of : 1955 Instrument Name: [...] the bowel preparation was evaluatedusing the BBPS ([place] Bowel Preparation Scale) withscores of: Right Colon [...] following this procedure please call my office [phone]). After hours and eveningsplease call [phone] and speak to the GI fellow oncall fellow. Please tell the fellow that Dr. Isbell did your procedure and that you were instructed to have the fellow call me or the physician covering for meto discuss the management of your condition. If youhave an urgent problem, please go to the nearestemergency room and have the ER doctor call [...] Relevant to Health Maintenance Insurance MEDICARE SOLUTIONS MEDICARE SOLUTIONS Advance Directives For more information, please contact: [phone] * Full Code (Latest Code Status on [...] 8:59 AM 04/26/2023 3:54 PM Care Teams Fiscal Technician Relationship Specialty Start Date End Date Orion Frankel PA [address] [place] [address] PCP - General Physician Community Health Director 12/28/22 Astrid Isbell MD 1 [facility] [place] [address] Referring Physician Gastroenterology 06/22/23 Bob Blake MD 1 [facility] [place] [address] Medical Oncologist Hematology and Oncology 08/08/23
--- OUTSIDE RECORDS SUMMARY | 2024-10-20 09:35 | XMS_ITS ---
Author Organization [facility] Address [address] [place] [address] Care Team Providers Care Protection Officer Name Role Phone Orion Frankel Primary Care Provider Astrid Isbell MD Unavailable [phone] Bob Blake MD Unavailable Unavailable Active Problems Problem Noted Date Diagnosed Date On antineoplastic chemotherapy 02/06/2024 History of pancreatectomy 07/12/2023 Pancreatic adenocarcinoma 06/20/2023 Assessment & Plan (06/21/2023 2:04 PM ROLLER COASTER OPERATOR): Follow up with oncology - Avoiding anticoagulation post procedure Abdominal pain 06/20/2023 Assessment & Plan (06/21/2023 2:06 PM ROLLER COASTER OPERATOR): Patient with pain post procedure, worse after liquids - Continue clear liquids - oxy, morphine prn - started bowel regimen and prn simethicone - Seen by [facility] surgery, planning for admission Insomnia 06/20/2023 Assessment & Plan (06/21/2023 2:06 PM ROLLER COASTER OPERATOR): Not sleeping well at night, somewhat pain related - Start ramelteon hs Moderate malnutrition 06/20/2023 Assessment & Plan (06/21/2023 2:06 PM ROLLER COASTER OPERATOR): Recent 15 pound weight loss, due to fluid collection and malignancy - Continuing Education Instructor consult - Monitor weight, 70.3,g admission weight Pancreatic duct leak 05/15/2023 Assessment & Plan (06/21/2023 2:06 PM ROLLER COASTER OPERATOR): S/p EUS and ERCP 06/20 with biliary. [...] History of pancreatitis 01/24/2023 Weight loss 01/24/2023 Current Treatment and Therapy Plans No current plan information found. Past Treatment and Therapy Plans No past plan information found. Lifetime Dose Tracking * Chemical Lifetime Dose Automatic Entry Manual Entr y Fluoro Time 15.1 minutes 15.1 minutes 0 minutes Air kerma at the reference point (Ka,r) 560 mGy 5 60 mGy 0 mGy DLP 2,572 mGycm 2,572 mGycm 0 mGycm
--- OUTSIDE RECORDS SUMMARY | 2024-10-20 09:35 | XMS_ITS | Patient Health Summary ---
Author Organization [facility] Address [address] [place] [address] Care Team Providers Care Proposal Manager Name Role Phone Andra Huynh MD Primary Care Provider [phone] Note from [facility],non-owned Affiliates and Associated Physician Practices is amultiple site organization consisting of ambulatory clinics and hospital sitesin [place], [place], [place] and [place]. This disclosure is being madepursuant to the Care Everywhere program and may not contain all information available regarding this patient. Last updated 18.[facility] Allergies No known active allergies Medications * Be aware that medications may not be up to date on this document. Alwaysverify current medications with the patient. * Fenofibrate (LIPOFEN) 150 MG CAPS(Started 12/06/2009) Take 1 Cap by mouth daily with food. * quinapril (ACCUPRIL) 20 MG tablet(Started 07/25/2010) Take 1 Tab by mouth daily. 3 refills left * azithromycin (ZITHROMAX) 250 mg arnie(Started 08/11/2010) Take by mouth. 2 tablets day 1, then 1 tablet daily for 4 days * hydrocortisone (ANUSOL-HC) 25 MG suppository(Started 10/17/2010) Insert 1 Suppository into the rectum 2 times daily. 1 refill left * ciprofloxacin (CIPRO) 250 MG tablet(Started 01/12/2011) Take 1 Tab by mouth 2 times daily. Active Problems Problem Noted Date Diagnosed Date Pleuritic chest pain 03/28/2010 Screening for condition 10/08/2009 Osteoarthritis of hip Disc disease, degenerative, cervical HLD (hyperlipidemia) HTN [...] Mass Index 30.65 03/28/2010 3:37 PM CDT Procedures * XR SINUSES 3VW OR MORE(Performed 08/18/2010) * ERYTHROCYTE SEDIMENTATION RATE(Performed 03/29/2010) * JUAN PANEL COMPREHENSIVE(Performed 03/29/2010) * CBC W AUTO DIFFERENTIAL(Performed 03/29/2010) * XR CHEST 2VW(Performed 03/28/2010) Performed for Pleuritic Chest Pain * LIPID PROFILE W LDL/HDL RATIO(Performed 02/19/2010) Performed for Hld (Hyperlipidemia) * COMPREHENSIVE METABOLIC PANEL(Performed 11/27/2009) Performed for Htn (Hypertension), Hld (Hyperlipidemia) * CBC W AUTO DIFFERENTIAL(Performed 11/27/2009) Performed for Dyspnea, Abdominal Pain, Epigastric * PROSTATE SPECIFIC ANTIGEN SCREEN(Performed 11/27/2009) Performed for Screening for Prostate Cancer * LIPID PROFILE(Performed 11/27/2009) Performed for Hld (Hyperlipidemia) * OCCULT BLOOD FECES 1-3 SCREEN POINT OF CARE (AMB)(Performed 11/15/2009) Performed for Screening for Prostate Cancer Results * XR SINUSES 3+ VW (08/18/2010) Anatomical Region Laterality Modality Head Other Provider Unknown DIAGNOSTIC IMAGING O RDERABLES * JUAN PANEL COMPREHENSIVE (PO REF LAB) (03/29/2010 3:34 PM CDT) Anti-dsDNA Quantitative <1 0 - 9 IU/mL [facility] INSURANCE BILL Comment: Negative <5 Equivocal 5 - 9 Positive >9 CLINICAL DIETICIAN Antibody <0.2 0.0 - 0.9 AI [facility] INSURANCE BILL Eisenberg (IGGY) Antibody <0.2 0.0 - 0.9 AI [facility] INSURANCE BILL Antiscleroderma-70 Antibody 0.7 0.0 - 0.9 AI [facility] INSURANCE BILL Sjogren's Antibodies (SSA) <0.2 0.0 - 0.9 AI [facility] INSURANCE BILL Sjogren's Antibodies (SSB) <0.2 0.0 - 0.9 AI [facility] INSURANCE BILL Antichromatin Antibodies <0.2 0.0 - 0.9 AI [facility] INSURANCE BILL Amelia-1 Antibody <0.2 0.0 - 0.9 AI [facility] INSURANCE BILL Centromere B Antibody <0.2 0.0 - 0.9 AI [facility] INSURANCE BILL See Below [facility] INSURANCE BILL Comment: Autoantibody Disease Association Condition Frequency --------- Antinuclear Antibody, SLE, mixed connective Direct (JUAN-D) tissue diseases --------- dsDNA SLE 40 - 60% --------- Chromatin Drug induced SLE 90% SLE 48 - 97% --------- SSA (Ro) SLE 25 - 35% Sjogren's Syndrome 40 - 70% Lupus 100% --------- SSB (La) SLE 10% Sjogren's Syndrome 30% --------- Sm (anti-Eisenberg) SLE 15 - 30% --------- CLINICAL DIETICIAN Mixed Connective Tissue Disease 95% (U1 nRNP, SLE 30 - 50% anti-ribonucleoprotein) Polymyositis and/or Dermatomyositis 20% --------- Scl-70 (antiDNA Scleroderma (diffuse) 20 - 35% topoisomerase) Crest 13% --------- Amelia-1 Polymyositis and/or Dermatomyositis 20 - 40% --------- Centromere B Scleroderma - Crest variant 80% 03/29/2010 3:34 PM CDT 03/29/2010 9:57 PM CDT Narrative Resulting Agency Comment [facility] [address] [phone] Juwan Santiago MD LAB - SEROLOGY ORDER CHRIS [facility] INSURANCE BILL * SED RATE WESTERGREN AUTO (03/29/2010 3:34 PM CDT) Erythrocyte Sedimentation Rate Westergren 16 0 - 20 mm/hr [facility] INSURANCE BILL 03/29/2010 3:34 PM CDT 03/29/2010 9:57 PM CDT Narrative Resulting Agency Comment [facility] [address] [phone] Juwan Santiago MD LAB - HEMATOLOGY ORD ERABLES [facility] INSURANCE BILL * CBC W AUTO DIFFERENTIAL (03/29/2010 3:34 PM CDT) Only the most recent of2 resultswithin the time period is included. WBC 10.1 4.0 - 10.5 x10E3/uL [facility] INSURANCE BILL RBC 4.53 4.10 - 5.60 x10E6/uL [facility] INSURANCE BILL Hemoglobin 15.4 12.5 - 17.0 g/dL [facility] INSURANCE BILL Hematocrit 43.2 36.0 - 50.0 % [facility] INSURANCE BILL MCV 95 80 - 98 fL [facility] INSURANCE BILL MCH 34.0 27.0 - 34.0 pg [facility] INSURANCE BILL MCHC 35.6 32.0 - 36.0 g/dL [facility] INSURANCE BILL RDW 13.1 11.7 - 15.0 % [facility] INSURANCE BILL Platelet Count 306 140 - 415 x10E3/uL [facility] INSURANCE BILL Granulocytes % 48 40 - 74 % [facility] INSURANCE BILL Lymphocytes % 41 14 - 46 % [facility] INSURANCE BILL Monocytes % 9 4 - 13 % [facility] INSURANCE BILL Eosinophils % 2 0 - 7 % [facility] INSURANCE BILL Basophils % 0 0 - 3 % [facility] INSURANCE BILL Immature Cells CANCELED [facility] INSURANCE BILL Comment:Result canceled by mik tian ancillary Granulocytes Absolute 4.8 1.8 - 7.8 x10E3/uL [facility] INSURANCE BILL Lymphocytes Absolute 4.1 0.7 - 4.5 x10E3/uL [facility] INSURANCE BILL Monocytes Absolute 0.9 0.1 - 1.0 x10E3/uL [facility] INSURANCE BILL Eosinophils Absolute 0.2 0.0 - 0.4 x10E3/uL [facility] INSURANCE BILL Basophils Absolute 0.0 0.0 - 0.2 x10E3/uL [facility] INSURANCE BILL Immature Granulocytes 0 0 - 1 % [facility] INSURANCE BILL Immature Granulocytes Absolute 0.0 0.0 - 0.1 x10E3/uL [facility] INSURANCE BILL nRBC CANCELED [facility] INSURANCE BILL Comment:Result canceled by t he ancillary Comment Hematology CANCELED [facility] INSURANCE BILL Comment:Result canceled by t he ancillary 03/29/2010 3:34 PM CDT 03/29/2010 9:57 PM CDT Narrative Resulting Agency Comment [facility] [address] [phone] Juwan Santiago MD LAB - HEMATOLOGY ORD ERABLES [facility] INSURANCE BILL * XR CHEST PA AND LATERAL (CXR) (03/28/2010 5:02 PM CDT) Anatomical Region Laterality Modality Chest Radiographic Sri ging 03/28/2010 5:18 PM CDT Impressions 03/28/2010 6:47 PM CDT No active lung disease. No change. Narrative 03/28/2010 6:47 PM CDT CHEST HISTORY: Cough and pleuritic chest pain. PA and lateral views of the chest are obtained. Both lungs are clear. There is no infiltrate, pneumothorax or pleural fluid. The heart size is normal. There are a few small calcified granulomas in both lungs. No change since 11/24/2008. Procedure Note Huma Carpio MD - 03/28/2010 CHEST HISTORY: Cough and pleuritic chest pain. PA and lateral views of the chest are obtained. Both lungs are clear. There is no infiltrate, pneumothorax or pleural fluid. The heart size is normal. There are a few small calcified granulomas in both lungs. No change since 11/24/2008. IMPRESSION No active lung disease. No change. Lj Tinajero MD DIAGNOSTIC IMAGING O RDERABLES * (ABNORMAL) LIPID PROFILE W LDL/HDL (PO [...] PM CDT Narrative Resulting Agency Comment [facility] [address] [phone] Juwan Santiago MD LAB - CHEMISTRY STACEY JEAN [facility] Organization Address City/State/ZIP Co de Phone Number [facility] ACCOUNT BILL * COMPREHENSIVE METABOLIC PANEL (11/27/2009 9:06 AM CDT) Glucose 91 65 - 99 mg/dL [facility] ACCOUNT BILL BUN 13 5 - 26 mg/dL [facility] ACCOUNT BILL Creatinine 0.86 0.76 - 1.27 mg/dL [facility] ACCOUNT BILL eGFR by MDRD >59 >59 mL/min/1.7 3 [facility] ACCOUNT BILL eGFR by MDRD >59 >59 mL/min/1.7 3 [facility] ACCOUNT BILL Comment: Note: Persistent reduction for 3 months or more in an eGFR <60 mL/min/1.73 m2 defines CKD. Patients with eGFR values >/=60 mL/min/1.73 m2 may also have CKD if evidence of persistent proteinuria is present. Additional information may be found at [email or web address]. BUN/Creatinine Ratio 15 8 - 27 [facility] ACCOUNT BILL Sodium 142 135 - 145 mmol/L [facility] ACCOUNT BILL Potassium 4.6 3.5 - 5.2 mmol/L [facility] ACCOUNT BILL Chloride 106 97 - 108 mmol/L [facility] ACCOUNT BILL CO2 24 20 - 32 mmol/L [facility] ACCOUNT BILL Calcium 9.4 8.7 - 10.2 mg/dL [facility] ACCOUNT BILL Protein Total 6.7 6.0 - 8.5 g/dL [facility] ACCOUNT BILL Albumin 4.2 3.5 - 5.5 g/dL [facility] ACCOUNT BILL Globulin Total 2.5 1.5 - 4.5 g/dL [facility] ACCOUNT BILL Albumin/Globulin Ratio 1.7 1.1 - 2.5 [facility] ACCOUNT BILL Bilirubin Total 0.3 0.1 - 1.2 mg/dL [facility] ACCOUNT BILL Comment: Effective December 06, 2009, Bilirubin, Total, reference interval will be changing to: mg/dL Newborns, term and near term: 24 hours old: 0.0 - 8.0 48 hours old: 0.0 - 13.2 72 hours old: 0.0 - 15.6 96 hours to 1 month old: 0.0 - 16.6 Children 1 month and older and Adults: 0.0 - 1.2 . *Panic value will be changed such that results* >17.0 mg/dL will be called as panics. Alkaline Phosphatase 90 25 - 150 IU/L [facility] ACCOUNT BILL AST 18 0 - 40 IU/L [facility] ACCOUNT BILL ALT 20 0 - 55 IU/L [facility] ACCOUNT BILL BLOOD SPECIMEN / Unknown 11/27/2009 9:06 AM CDT 11/27/2009 6:34 PM CDT Narrative Resulting Agency Comment [facility] [address] [phone] Juwan Santiago MD LAB - CHEMISTRY STACEY JEAN [facility] ACCOUNT BILL * PROSTATE SPECIFIC ANTIGEN SCREEN (11/27/2009 9:05 AM CDT) PSA 1.0 0.0 - 4.0 ng/mL [facility] ACCOUNT BILL Comment: Hellen ECLIA methodology. . According to the [place] [employer], Serum PSA should decrease and remain at undetectable levels after radical prostatectomy. The AUA defines biochemical recurrence as an initial PSA value 0.2 ng/mL or greater followed by a subsequent confirmatory PSA value 0.2 ng/mL or greater. Values obtained with different assay methods or kits cannot be used interchangeably. Results cannot be interpreted as absolute evidence of the presence or absence of malignant disease. BLOOD SPECIMEN / Unknown 11/27/2009 9:05 AM CDT 11/27/2009 6:33 PM CDT Narrative Resulting Agency [facility] [address] [phone] Juwan Santiago MD LAB - CHEMISTRY STACEY JEAN Performing Organization Address [facility] Co de Phone Number [facility] ACCOUNT BILL * (ABNORMAL) LIPID PROFILE (11/27/2009 9:05 AM CDT) Cholesterol 266(H) 100 - 199 mg/dL [facility] ACCOUNT BILL Triglycerides 243(H) 0 - 149 mg/dL [facility] ACCOUNT BILL HDL Cholesterol 41 >39 mg/dL [facility] ACCOUNT BILL Comment: According to ATP-III Guidelines, HDL-C >59 mg/dL is considered a negative risk factor for CHD. VLDL Calculated 49(H) 5 - 40 mg/dL [facility] ACCOUNT BILL LDL Calculated 176(H) 0 - 99 mg/dL [facility] ACCOUNT BILL BLOOD SPECIMEN / Unknown 11/27/2009 9:05 AM CDT 11/27/2009 6:33 PM CDT Narrative Resulting Agency Comment [facility] [address] [phone] Juwan Santiago MD LAB - CHEMISTRY STACEY JEAN Performing Organization Address [facility] Co de Phone Number [facility] ACCOUNT BILL * OCCULT BLOOD FECES 1-3 POINT OF CARE (AMB) (11/15/2009 3:23 PM CDT) Occult Blood 1 n Negative Occult Blood 2 Negative Occult Blood 3 Negative Card Lot Number Card Exp Date Yes Developer Lot Number Developer Expiration Date Yes QC Negative Negative QC Positive STOOL SPECIMEN / Unknown Juwan Santiago MD LAB - POINT OF CARE ORDERABLES Care Teams Proposal Manager Relationship Specialty Start Date End Date Andra Huynh MD PCP - General 10/29/19
--- OUTSIDE RECORDS SUMMARY | 2024-10-20 09:35 | XMS_ITS | Referral Summary ---
Author Organization [facility] [employer] Address [address] [place] [address] Care Team Providers Care Melt Down Furnace Operator Name Role Phone Andra Huynh MD Primary Care Provider [phone] Source Comments [facility] [employer],non-owned Affiliates and Associated Physician Practices is amultiple site organization consisting of ambulatory clinics and hospital sitesin [place], [place], [place] and [place]. This disclosure is being madepursuant to the Care Everywhere program and may not contain all information available regarding this patient. Last updated 18.[facility] [employer] Allergies No known active allergies Medications * [...] 03/28/2010 3:37 PM CDT Plan of Treatment Not on file Procedures Procedure Name Priority Date/Time Associated Diagnosis [...] PM CDT Narrative Resulting Agency Comment [facility] [address] [phone] Juwan Santiago MD LAB - CHEMISTRY STACEY Alberto Organization Address City/State/ZIP Co de Phone Number [facility] ACCOUNT BILL from Last 3 Months or Most Recently Relevant to Health Maintenance Care Teams Melt Down Furnace Operator Relationship Specialty Start Date End Date Andra Huynh MD PCP - General 10/29/19
--- OUTSIDE RECORDS SUMMARY | 2024-10-20 09:35 | XMS_ITS | Clinical Summary ---
Author Organization [facility] Address [address] [facility] [place] [place] [address] Care Team Providers Care Outpatient Interviewing Clerk Name Role Phone Huey Teague DO Primary Care Provider Allergies No known active allergies Medications simvastatin (ZOCOR) 20 mg tablet Take 20 mg by mouth daily. Active tamsulosin (FLOMAX) 0.4 mg capsule Take 0.4 mg by mouth daily. Active sertraline (ZOLOFT) 50 mg tablet Take 50 mg by mouth daily. Active omega-3 fatty acids-fish oil 300-1,000 mg Capsule Take 1 Gram by mouth daily. Active lidocaine-pril ocaine (EMLA) 2.5-2.5 % CreamIndicatio ns:Malignant neoplasm of tail of pancreas (CMS/HCC) Apply to affected area see administration instructions. Apply to port a cath area 30 minutes prior to treatment. 30 Gram 3 4 Active multivitamins- minerals-lutei n (Centrum Silver) Tablet Take 1 Tablet by mouth daily. Active diphenoxylate- atropine 2.5 mg-0.025 mg tablet Take 1 Tablet by mouth 3 times daily. 30 Tablet 4 Active traMADoL (ULTRAM) 50 mg tabletIndicati ons:Malignant neoplasm of tail of pancreas (CMS/HCC) Take 1 Tablet (50 mg) by mouth every 6 hours as needed for Pain. 60 Tablet 4 Active pantoprazole (PROTONIX) 40 mg Tablet, Delayed Release (E.C.) Take 40 mg by mouth daily. 4 Active lisinopriL (PRINIVIL) 20 mg tablet Take 40 mg by mouth daily. 4 Active ondansetron (ZOFRAN ODT) 8 mg Tablet, Rapid DissolveIndica tions:Malignan t neoplasm of tail of pancreas ([facility]/HCC) Dissolve 1 tablet on top of tongue then swallow with saliva every 8 hours as needed for nausea or vomiting 30 Tablet 3 4 Active amLODIPine (NORVASC) 5 mg tablet Take 1 Tablet by mouth daily. 4 Active finasteride (PROSCAR) 5 mg tablet Take 1 Tablet by mouth daily. 4 Active Active Problems No known active problems Encounters Date Type Department Care Team Description 08/25/2024 Orders Only [facility] Oncology and Hematology - [address] [place] [phone] Lloyd Olmos MD Malignant neoplasm of tail of pancreas ([facility]/HCC) 08/19/2024 External Device Data STL ABSTRACTION Provider, Abstract 08/11/2024 Orders Only [facility] Oncology and Hematology - [place] [address] [place] [phone] Lloyd Olmos MD Malignant neoplasm of tail of pancreas ([facility]/HCC) 07/29/2024 Orders Only [facility] Oncology and Hematology - [address] [place] [phone] Lloyd Olmos MD 07/28/2024 11:00 AM CLINICAL DOCUMENTATION NURSE Office Visit [facility] Oncology and Hematology - [place] [address] [place] [id number] Lloyd Olmos MD Malignant neoplasm of tail of pancreas ([facility]/HCC) 07/23/2024 Orders Only [facility] Oncology and Hematology - [place] [address] [place] [phone] Lloyd Olmos MD from Last 3 Months Family History Medical History Relation Name Comments No Known Problems Father Prostate Cancer Half-Brother No Known Problems Mother Relation Name Status Comments Father Half-Brother Alive Mother Social History Tobacco Use Types Packs/Day Years Used Date Smoking Tobacco: Every Day Cigarettes Smokeless Tobacco: Never Tobacco Cessation:Ready to Q uit: Not Asked; Counseling Given: Not Answered Alcohol Use Standard Drinks/Week Comments Yes 0 (1 standard drink = 0.6 oz pur e alcohol) Sex and Gender Information Value Date Recorded Sex Assigned at Not on file Legal Sex Male 8:01 AM CLINICAL DOCUMENTATION NURSE Gender Identity Not on file Sexual Orientation Not on file Last Filed Vital Signs Vital Sign Reading Time Taken Comments Blood Pressure 141/77 07/28/2024 11:34 AM CLINICAL DOCUMENTATION NURSE Pulse 62 07/28/2024 11:32 AM CLINICAL DOCUMENTATION NURSE Temperature 36.8 C (98.2 F) 07/28/2024 11:32 AM CLINICAL DOCUMENTATION NURSE Respiratory Rate 16 07/28/2024 11:32 AM CLINICAL DOCUMENTATION NURSE Oxygen Saturation 97% 07/28/2024 11:32 AM CLINICAL DOCUMENTATION NURSE Inhaled Oxygen Concentration - - Weight 80.6 kg (177 lb 9.6 oz) 07/28/2024 11:32 AM CLINICAL DOCUMENTATION NURSE Height 177.8 cm (5' 10 ) 08/07/2023 8:36 AM CLINICAL DOCUMENTATION NURSE Body Mass Index 25.48 08/07/2023 8:36 AM CLINICAL DOCUMENTATION NURSE Plan of Treatment Upcoming Encounters Date Type Department Care Team (Late st Contact Info) Description 10/27/2024 10:00 AM CDT Office Visit [facility] Oncology and Hematology - [place] [address] [place] [address] Lloyd Olmos MD [address] [place] [address] Health Maintenance Due Date Last Done Comments Pre-Diabetes and Diabetes Screening 1957 DTAP/TDAP/TD VACCINES (1 - Tdap) 1976 FIT-DNA Q 3 years 2002 FIT/FOBT Q 1 year 2002 Flex Sig/CT Colonography Q 5 years 2002 ZOSTER VACCINE (1 of 2) 2007 Abdominal Aortic Aneurysm (AAA) Screening 2022 INFLUENZA VACCINE (#1) 2024 05/16/2023 RSV VACCINE (60+ or ) (1 - 1-dose 75+ series) 2032 COLORECTAL SCREENING 04/05/2033 04/05/2023, 04/05/20 23 Colorectal Cancer Screening 04/05/2033 PNEUMOCOCCAL VACCINE 50+ YEARS Completed 05/16/2023 Procedures Procedure Name Priority Date/Time Associated Diagnosis Comments BASIC METABOLIC PANEL Routine 07/28/2024 12:43 PM CLINICAL DOCUMENTATION NURSE TRIGLYCERIDE Routine 07/28/2024 11:58 AM CLINICAL DOCUMENTATION NURSE CBC WITH DIFFERENTIAL Routine 07/28/2024 11:35 AM CLINICAL DOCUMENTATION NURSE from Last 3 Months Results * BASIC METABOLIC PANEL (07/28/2024 12:43 PM CLINICAL DOCUMENTATION NURSE) Blood us Lloyd Olmos MD CHEMISTRY ORDERABLES Final Resu lt * TRIGLYCERIDE (07/28/2024 11:58 AM CLINICAL DOCUMENTATION NURSE) Blood us Lloyd Olmos MD CHEMISTRY ORDERABLES Final Resu lt * CBC WITH DIFFERENTIAL (07/28/2024 11:35 AM CLINICAL DOCUMENTATION NURSE) Blood us Lloyd Olmos MD HEMATOLOGY ORDERABLES Final Res ult from Last 3 Months Insurance [facility] [place] [id number] RX [employer] RX Member Subscriber Plan / Payer (Ef fective 2022-Present) Name:Tommy Zhao Relation to Subscriber:Self Name:Tommy Zhao Payer ID:Not on file Group ID:[id number] Type:RX Medicare Part D Address: [address] Care Teams Outpatient Interviewing Clerk Relationship Specialty Start Date End Date Huey Teague DO [address] [facility] [address] [place] [address] PCP - General Internal Medicine 08/08/23
== END 2024-10-20 08:48 | disposition home or self-care (01) ==
PROVIDERS: PCP Internal Medicine; Visit Provider Internal Medicine Hematology & Oncology
DX: C25.2 Malignant neoplasm of tail of pancreas (principal)
CPT/HCPCS: 74177; Q9967

== ENCOUNTER 2025-01-21 08:12 | Outpatient (CLI) | payer MEDICARE, SELFPAY ==
--- NOTE | ~2025-01-21 | CT_ITS ---
CT of the Abdomen and Pelvis: Indication: Pancreatic neoplasm Technique: 2.5 mm axial scans were obtained through the abdomen and pelvis following intravenous adm inistration of 100 cc of Omnipaque 350. Dose reduction technique was used on this scan by utilizing a utomated exposure control and iterative reconstruction technique. The dose-length product (DLP) was 4 70.42 mGy-cm. COMPARISON: 10/20/2024 Findings: Scans through the lung bases are unremarkable. Stable hepatic cysts. The gallbladder, adrenals and kidneys are within normal limits. Status post dis kavya pancreatectomy. Status post splenectomy. There are atherosclerotic calcifications of the aorta. No lymphadenopathy. No bowel obstruction or bowel wall thickening. There is no evidence to suggest acute appendicitis. Images through the pelvis were performed. Urinary bladder unremarkable. No pelvic mass seen. No ascit es. Impression: No evidence for active malignancy or metastatic disease. Status post distal pancreatectomy and splene ctomy, unchanged. Reviewed, dictated and finalized at [facility]. Impression: No evidence for active malignancy or metastatic disease. Status post distal solano createctomy and splenectomy, unchanged.
--- OUTSIDE RECORDS SUMMARY | 2025-01-21 08:23 | XMS_ITS | Encounter Summary ---
Author Organization [facility] [employer] [facility] Address [address] [place] [address] Care Team Providers Care Metal Rolling Mill Operator Name Role Phone Huey Teague DO Primary Care Provider [phone] Encounter Details Date Type Department Care Team (Late Contact Info) Description 01/20/2025 Orders Only [facility] Oncology and Hematology [address] [place] [address] Lloyd Olmos MD [facility] [address] [place] [phone] Social History Tobacco Use Types Packs/Day Years Used Date Smoking Tobacco: Every Day Cigarettes Smokeless Tobacco: Never Alcohol Use Standard Drinks/Week Comments Yes 0 (1 standard drink = 0.6 oz pur e alcohol) Sex and Gender Information Value Date Recorded Sex Assigned at Not on file Legal Sex Male 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 AM 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 Gender Identity Not on file Sexual Orientation Not on file documented as of this encounter Plan of Treatment Upcoming Encounters Date Type Department Care Team (Late st Contact Info) Description 01/28/2025 11:15 AM CDT Office Visit [facility] Oncology and Hematology - [address] [place] [address] Lloyd Olmos MD [facility] [address] [place] [address] documented as of this encounter Procedures Procedure Name Priority Date/Time Associated Diagnosis Comments COMPREHENSIVE METABOLIC PANEL Routine 01/19/2025 10:10 AM CDT documented in this encounter Results * COMPREHENSIVE METABOLIC PANEL (01/19/2025 10:10 AM CDT) Blood Lloyd Olmos MD CHEMISTRY ORDERABLES Final Resu lt documented in this encounter Visit Diagnoses Not on filedocumented in this encounter Care Teams Metal Rolling Mill Operator Relationship Specialty Start Date End Date Huey Teague DO [address] [facility] [address] [place] [address] PCP - General Internal Medicine 08/08/23 documented as of this encounter
--- OUTSIDE RECORDS SUMMARY | 2025-01-21 08:23 | XMS_ITS | Clinical Summary ---
Author Organization [facility] Address [address] [place] [address] Care Team Providers Care Department Manager Name Role Phone Andra Huynh MD Primary Care Provider [phone] Source Comments [facility],non-owned Affiliates and Associated Physician Practices is amultiple site organization consisting of ambulatory clinics and hospital sitesin [place], [place], [place] and [place]. This disclosure is being madepursuant to the Care Everywhere program and may not contain all information available regarding this patient. Last updated 18.[facility] Allergies No known active allergies Medications * Be aware that medications may not be up to date on this document. Alwaysverify current medications with the patient. Fenofibrate (LIPOFEN) 150 MG CAPSIndications :HLD (hyperlipidemia ) Take 1 Cap by mouth daily with food. 84 0 12/07/19 10 Active quinapril (ACCUPRIL) 20 MG tablet Take 1 Tab by mouth daily. 90 Tab 3 07/25/20 10 Active azithromycin (ZITHROMAX) 250 mg arnie Take by mouth. 2 tablets day 1, then 1 tablet daily for 4 days 1 Tab 0 08/11/20 10 Active hydrocortisone (ANUSOL-HC) 25 MG suppository Insert 1 Suppository into the rectum 2 times daily. 12 Suppository 1 10/18/19 11 Active ciprofloxacin (CIPRO) 250 MG tablet Take 1 Tab by mouth 2 times daily. 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 Gender Identity Not on file Sexual Orientation [...] P M CDT Height 177.8 cm (5' 10) 03/28/2010 3:37 PM CDT Body Mass Index [...] VACCINE (1 - 2023-2 5 season) 2024 DEPRESSION SCREENING 08/13/2024 INFLUENZA VACCINE (Season Ended) 2025 Respiratory Syncytial Virus (RSV) Vaccine Pt: or [...] complete this topic MENINGOCOCCAL (Group B) VACCINE SHARED DECISION-MAKING Aged Out No longer eligible based on patient's age to complete this topic MENINGOCOCCAL GROUPS A/C/Y/W VACCINE Aged Out No longer eligible b [...] PM CDT Narrative Resulting Agency Comment [facility] [address] [facility] [address] [id number] Juwan Santiago MD LAB - CHEMISTRY ORDERABLES F inal Result [facility] ACCOUNT BILL [address] [place] [address] from Last 3 Months or Most Recently Relevant to Health Maintenance Insurance ANTH Care Teams Department Manager Relationship Specialty Start Date End Date Andra Huynh MD PCP - General 10/29/19
--- OUTSIDE RECORDS SUMMARY | 2025-01-21 08:24 | XMS_ITS | Clinical Summary ---
Author Organization [facility] Address [address] [facility] [place] [address] Care Team Providers Care Warm In Worker Name Role Phone Huey Teague Primary Care Provider [phone] Allergies No known active allergies Medications simvastatin [...] tions:Malignan t neoplasm of tail of pancreas (CMS/HCC) Dissolve 1 tablet on top of tongue [...] Encounters Date Type Department Care Team Description 01/20/2025 Orders Only [facility] [place] [address] [place] [address] Lloyd Olmos MD 10/28/2024 Orders Only [facility] [place] [address] [place] [address] Lloyd Olmos MD 10/27/2024 10:00 AM CDT Office Visit [facility] [place] [address] [place] [address] Lloyd Olmos MD Malignant neoplasm of tail of pancreas (CMS/HCC) (Primary Dx) from Last 3 Months Family History Medical [...] on file 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 Gender Identity Not on file Sexual Orientation Not on file Last Filed Vital Signs Vital Sign Reading Time Taken Comments Blood Pressure 145/83 10/27/2024 9:49 AM CDT Pulse 70 10/27/2024 9:46 AM CDT Temperature 35.9 C (96.7 F) 10/27/2024 9:46 AM CDT Respiratory Rate 16 10/27/2024 9:46 AM CDT Oxygen Saturation 96% 10/27/2024 9:46 AM CDT Inhaled Oxygen Concentration - - Weight 81.7 kg (180 lb 3.2 oz) 10/27/2024 9:46 A M CDT Height 177.8 cm (5' 10) 08/07/2023 8:36 AM VACUUM METALIZING SUPERVISOR Body Mass Index 25.86 08/07/2023 8:36 AM VACUUM METALIZING SUPERVISOR Plan of Treatment Upcoming Encounters Date Type Department Care Team (Late st Contact Info) Description 01/28/2025 11:15 AM CDT [facility] [place] [address] [facility] [address] [place] [address] Lloyd Olmos MD [address] [facility] [employer] [address] [place] [address] Health Maintenance Due Date Last [...] METABOLIC PANEL Routine 01/19/2025 10:10 AM CDT COMPREHENSIVE METABOLIC PANEL Routine 10/24/2024 4:57 PM CDT CBC WITH DIFFERENTIAL Routine 10/24/2024 4:33 PM CDT from Last 3 Months Results * COMPREHENSIVE METABOLIC PANEL (01/19/2025 10:10 AM CDT) Only the most recent of2 resultswithin the time period is included. Blood Lloyd Olmos MD CHEMISTRY ORDERABLES Final Resu lt * CBC WITH DIFFERENTIAL (10/24/2024 4:33 PM CDT) Blood Lloyd Olmos MD HEMATOLOGY ORDERABLES Final Res ult from Last 3 Months Insurance [facility] [id number] [address] [place] [address] [id number] RX [employer] RX Member Subscriber Plan / Payer (Ef fective 2022-Present) Name:Tommy Zhao Relation to Subscriber:Self Name:Tommy Zhao Payer ID:Not on file Group ID:[id number] Type:RX Medicare Part D Address: [address] Care Teams Warm In Worker Relationship Specialty Start Date End Date Huey Teague DO [address] [facility] [address] [place] [address] PCP - General Internal Medicine 08/08/23
== END 2025-01-21 08:13 | disposition home or self-care (01) ==
PROVIDERS: PCP Nurse Practitioner Family; Visit Provider Internal Medicine Hematology & Oncology
DX: C25.2 Malignant neoplasm of tail of pancreas (principal); Z98.890 Other specified postprocedural states
CPT/HCPCS: 74177; Q9967

== ENCOUNTER 2025-06-04 08:21 | Outpatient (CLI) | payer MEDICARE, SELFPAY ==
--- NOTE | ~2025-06-04 | CT_ITS ---
Exam: CT abdomen and pelvis with contrast Clinical History: [Pancreatic neoplasm ]. Status post distal pancreatectomy and splenectomy. Comparison: [ Multiple prior CT abdomen and pelvis studies most recent from 01/21/2025] Technique: Multiple axial CT images of the abdomen and pelvis were obtained with IV contrast. Sagittal and coronal reformatted images were obtained. FINDINGS: Lung bases: [There are a few small and opacities in the lower lungs likely atelectasis or scarring.] Liver: [ No mass.] [ No intrahepatic biliary duct dilatation.] Gallbladder: [ No wall thickening or stones.] Common bile duct: [ Normal caliber.] [ No stones.] Spleen: Surgically absent. Pancreas: Status post distal pancreatectomy. No CT evidence for recurrent malignancy about the pancreas. Adrenals: [ No masses.] Kidneys: [ No masses. No hydronephrosis.][ ] Lymph nodes: [ No adenopathy in the abdomen or pelvis.] Stomach, small bowel and colon: Thickening of the lozoya of the cardia and body of the stomach. Peritoneum cavity: [ No mesenteric fat stranding or fluid.] Bladder: [ Unremarkable.] Osseous structures: [ No acute fracture lesion.] [ Multilevel degenerative change in the visualized spine.] Bones appear osteopenic. Abdominal aorta: [ No aneurysm.] Additional findings: Prostate gland is enlarged and heterogeneous and partially calcified and impresses upon the base of the bladder, unchanged. IMPRESSION: 1. No CT evidence for recurrent malignancy about the pancreas. 2. No lymphadenopathy in the abdomen or pelvis. 3. Thickening of the lozoya of the cardia and body of the stomach. Differential includes incomplete stomach wall distention, gastritis or mass. Direct visualization is recommended. Reviewed, dictated and finalized at location Q. IMPRESSION: 1. No CT evidence for recurrent malignancy about the pancreas. 2. No lymphadenopathy in the abdomen or pelvis. 3. Thickening of the lozoya of the cardia and body of the stomach. Differential includes incomplete stomach wall distention, gastritis or mass. Direct visualiz ation is recommended.
--- OUTSIDE RECORDS SUMMARY | 2025-06-04 08:28 | XMS_ITS | Clinical Summary ---
[facility] Organization [facility] Address [address] [place] [address] Care Team Providers Care Nuclear Medicine Chief Technologist Name Role Phone Clayton Pruett MD Primary Care Provider [phone] Allergies No known active allergies Medications simvastatin [...] tablet Take 1 Tablet by mouth daily. Active finasteride (PROSCAR) 5 mg tablet Take 1 Tablet by mouth daily. 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 Gender Identity Not on file Sexual Orientation Not on file Last Filed Vital Signs Vital Sign Reading Time Taken Comments Blood Pressure 134/79 01/28/2025 10:50 AM CDT Pulse 66 01/28/2025 10:50 AM CDT Temperature 36.4 C (97.6 F) 01/28/2025 10:50 AM CDT Respiratory Rate 15 01/28/2025 10:50 AM CDT Oxygen Saturation 95% 01/28/2025 10:50 AM CDT Inhaled Oxygen Concentration - - Weight 81.2 kg (179 lb) 01/28/2025 10:50 AM CDT Height 177.8 cm (5' 10) 08/07/2023 8:36 AM COCOA ROOM OPERATOR Body Mass Index 25.68 08/07/2023 8:36 AM COCOA ROOM OPERATOR Plan of Treatment Upcoming Encounters Date Type Department Care Team (Late st Contact Info) Description 06/11/2025 10:15 AM CDT Office Visit [facility] Oncology and Hematology - [place] [address] [place] [address] Lloyd Olmos MD [address] [facility] [facility] [address] [place] [address] Health Maintenance Due Date Last Done Comments Pre-Diabetes and Diabetes Screening 1955 DTAP/TDAP/TD VACCINES (1 - Tdap) 1976 FIT-DNA Q 3 years 2002 FIT/FOBT Q 1 year 2002 Flex Sig/CT Colonography Q 5 years 2002 ZOSTER VACCINE (1 of 2) 2007 Abdominal Aortic Aneurysm (AAA) Screening 2022 INFLUENZA VACCINE (#1) 2025 05/16/2023 RSV VACCINE (60+ or ) (1 - 1-dose 75+ series) 2032 COLORECTAL SCREENING 04/05/2033 04/05/2023, 04/05/20 23 Colorectal Cancer Screening 04/05/2033 PNEUMOCOCCAL VACCINE 50+ YEARS Completed 05/16/2023 Insurance [facility] [id number] RX [employer] RX Member Subscriber Plan / Payer (Ef fective 2022-Present) Name:Tommy Zhao Relation to Subscriber:Self Name:Tommy Zhao Payer ID:Not on file Group ID:[id number] Type:RX Medicare Part D Address: [address] Care Teams Nuclear Medicine Chief Technologist Relationship Specialty Start Date End Date Clayton Pruett MD [address] [place] [address] PCP - General Family Practice 01/28/25
--- OUTSIDE RECORDS SUMMARY | 2025-06-04 08:28 | XMS_ITS | Clinical Summary ---
Author Organization [facility] Address [address] [place] [address] Care Team Providers Care Tdp Displays Analyst Name Role Phone Andra Huynh MD Primary Care Provider [phone] Source Comments [facility],non-owned Affiliates and Associated Physician Practices is amultiple site organization consisting of ambulatory clinics and hospital sitesin [place], [place], [place] and [place]. This disclosure is being madepursuant to the Care Everywhere program and may not contain all information available regarding this patient. Last updated 18.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 Gender Identity Not on file Sexual Orientation [...] 2) 2007 LIPID TESTING 02/19/2015 02/19/2010, 11/27/2009 DEPRESSION SCREENING 08/13/2024 COVID-19 VACCINE (1 - 2023-2 5 season) 2025 INFLUENZA VACCINE (#1) 2025 Respiratory Syncytial Virus (RSV) Vaccine Pt: [...] PM CDT Narrative Resulting Agency Comment [facility] [address] [facility] [id number] Juwan Santiago MD LAB - CHEMISTRY ORDERABLES F inal Result [facility] ACCOUNT BILL [address] [place] [address] from Last 3 Months or Most Recently Relevant to Health Maintenance Insurance ANTH Care Teams Tdp Displays Analyst Relationship Specialty Start Date End Date Andra Huynh MD PCP - General 10/29/19
--- OUTSIDE RECORDS SUMMARY | 2025-06-04 08:28 | XMS_ITS | Encounter Summary ---
Author Organization [facility] Address [address] [place] [address] Care Team Providers Care Blood Bank Assistant Name Role Phone Clayton Pruett MD Primary Care Provider [phone] Encounter Details Date Type Department Care Team (Late st Contact Info) Description 06/03/2025 External Device Data [facility] ABSTRACTION Provider, Abstract NO ADDRESS ON FILE Social History Tobacco Use Types Packs/Day Years Used Date Smoking Tobacco: Every Day Cigarettes Smokeless Tobacco: Never Alcohol Use Standard Drinks/Week Comments Yes 0 (1 standard drink = 0.6 oz pur e alcohol) Sex and Gender Information Value Date Recorded Sex Assigned at Not on file 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 Gender Identity Not on file Sexual Orientation Not on file documented as of this encounter Plan of Treatment Upcoming Encounters Date Type Department Care Team (Late st Contact Info) Description 06/11/2025 10:15 AM CDT Office Visit [facility] Oncology and Hematology - [place] [address] [address] Lloyd Olmos MD [address] [facility] [address] [place] [address] documented as of this encounter Visit Diagnoses Not on filedocumented in this encounter Care Teams Blood Bank Assistant Relationship Specialty Start Date End Date Clayton Pruett MD [address] [place] [address] PCP - General Family Practice 01/28/25 documented as of this encounter
--- OUTSIDE RECORDS SUMMARY | 2025-06-04 08:29 | XMS_ITS ---
Author Organization [facility] Address [address] [place] [address] Care Team Providers Care Toll Lineman Name Role Phone Astrid Isbell MD Unavailable [phone] Bob Blake MD Unavailable Unavailable Lilliam Jolley NP Primary Care Provider [phone] Active Problems Problem Noted Date Diagnosed Date On antineoplastic chemotherapy 02/06/2024 History of pancreatectomy 07/12/2023 Pancreatic adenocarcinoma 06/20/2023 Assessment & Plan (06/21/2023 2:04 PM LOGISTICS/SHIPPER): Follow up with oncology - Avoiding anticoagulation post procedure Abdominal pain 06/20/2023 Assessment & Plan (06/21/2023 2:06 PM LOGISTICS/SHIPPER): Patient with pain post procedure, worse after liquids - Continue clear liquids - oxy, morphine prn - started bowel regimen and prn simethicone - Seen by [facility] surgery, planning for admission Insomnia 06/20/2023 Assessment & Plan (06/21/2023 2:06 PM LOGISTICS/SHIPPER): Not sleeping well at night, somewhat pain related - Start ramelteon hs Moderate malnutrition 06/20/2023 Assessment & Plan (06/21/2023 2:06 PM LOGISTICS/SHIPPER): Recent 15 pound weight loss, due to fluid collection and malignancy - Manager Agricultural consult - Monitor weight, 70.3,g admission weight Pancreatic duct leak 05/15/2023 Assessment & Plan (06/21/2023 2:06 PM LOGISTICS/SHIPPER): S/p EUS and ERCP 06/20 with biliary. [...]
--- OUTSIDE RECORDS SUMMARY | 2025-06-04 08:29 | XMS_ITS | Clinical Summary ---
Author Organization [facility] Address [address] [place] [address] Care Team Providers Care Manager Port Name Role Phone Astrid Isbell MD Unavailable [phone] Bob Blake MD Unavailable Unavailable Lilliam Jolley NP Primary Care Provider [phone] Allergies No known active allergies Medications lisinopril-hydr [...] 06/20/2023 Assessment & Plan (06/21/2023 2:04 PM CIRCULAR SAWYER HELPER): Follow up with oncology - Avoiding anticoagulation post procedure Abdominal pain 06/20/2023 Assessment & Plan (06/21/2023 2:06 PM CIRCULAR SAWYER HELPER): Patient with pain post procedure, worse after liquids - Continue clear liquids - oxy, morphine prn - started bowel regimen and prn simethicone - Seen by [facility] surgery, planning for admission Insomnia 06/20/2023 Assessment & Plan (06/21/2023 2:06 PM CIRCULAR SAWYER HELPER): Not sleeping well at night, somewhat pain related - Start ramelteon hs Moderate malnutrition 06/20/2023 Assessment & Plan (06/21/2023 2:06 PM CIRCULAR SAWYER HELPER): Recent 15 pound weight loss, due to fluid collection and malignancy - Chief Diversity Officer consult - Monitor weight, 70.3,g admission weight Pancreatic duct leak 05/15/2023 Assessment & Plan (06/21/2023 2:06 PM CIRCULAR SAWYER HELPER): S/p EUS and ERCP 06/20 with biliary. [...] materials from doctor or pharmacy Sometimes 06/14/2023 [facility] Utilities Answer Date Recorded In the past 12 months has e [employer], oil, or water [employer] threatened to shut off services in your home? No 06/08/2023 Social Connection and Isolation Panel Answer Date Recorded In a typical week, how many times do you talk on the phone with family, friends, or neighbors? More than three times a week 06/08/2023 How often do you get togethe r with friends or relatives? More than three times a week 06/08/2023 How often do you attend chur ch or taoism services? Never 06/08/2023 Do you belong to any clubs o r organizations such as pentecostalism groups, unions, fraternal or athletic groups, or [...] place to sleep or slept in a chcf (including now)? No 06/08/2023 Personal Safety Answer Date Recorded Have you ever been in or are you currently in a harmful physical or emotional relationship or is someone making you feel afraid or unsafe? Denies 07/11/2023 Sex and Gender Information Value Date Recorded Sex Assigned at Not on file Legal Sex Male 10:48 PM CIRCULAR SAWYER HELPER Gender Identity Not on file Sexual Orientation Not on file Obstetrics History Last Filed Vital Signs Vital Sign Reading Time Taken Comments Blood Pressure 133/85 02/11/2025 10:10 AM CDT Pulse 70 02/11/2025 10:10 AM CDT Temperature 36.6 C (97.8 F) 02/11/2025 10:10 AM CDT Respiratory Rate 21 07/11/2023 5:07 PM CIRCULAR SAWYER HELPER Oxygen Saturation 97% 07/11/2023 5:07 PM CIRCULAR SAWYER HELPER Inhaled Oxygen Concentration - - Weight 81.4 kg (179 lb 6.4 oz) 02/11/2025 10:10 AM CDT Height 177.8 cm (5' 10) 02/11/2025 10:10 AM CDT Body Mass Index 25.74 02/11/2025 10:10 AM CDT Plan of Treatment Health Maintenance Due Date Last Done Comments Hepatitis C Screening 1955 DTaP/Tdap/Td Vaccine (1 - Tdap) 1968 Hepatitis B Screening 1975 Zoster Vaccine (1 of 2) 2007 Well Visit 65+ 2022 Depression Screening 06/20/2024 06/20/2023, 06/20/2023, 05/15/2023 Fall Risk Assessment 07/11/2024 07/11/2023 Covid-19 Vaccine (6 - 2024-2 6 season) 2025 05/29/2022, 11/22/2021, 05/19/2021, Additional history exists Influenza Vaccine (#1) 2025 , 05/29/2022, 05/19/2021, Additional history exists Prostate Cancer Screening-PSA 05/16/2025 05/16/2023 Colon Cancer Screening-Colonoscopy 04/05/20332022 Pneumococcal vaccine 65+ Completed 05/16/2023 Abdominal Aortic Aneurysm (A AA) Screen Completed 06/29/2023, 06/12/2023 Medical Devices Explanted Type Area Hoop Punch And Coiler Operator Helper Device Identifier Shelf Expiration Date Model / Serial / Lot [employer] [place] Flexi-Stent 5fr 3cm Small Pigtail Flexible .035in Stent [id number] - [id number] Implanted:Qty: 1 on 06/20/2023 by Dharemsh Ruby MD at [facility] Explanted:Qty: 1 on 07/11/2023 at [facility] Stent Pancreas [employer] 02/11/2028 [id number] / / [id number] Description:Not present upon start of procedure [employer] Wanda 10fr 5cm Biliary Stent [id number] - [id number] Implanted:Qty: 1 on 06/20/2023 by Dharmesh Ruby MD at [facility] Explanted:Qty: 1 on 07/11/2023 by Edu Lam MD at [facility] Stent N/A: Bile Duct [place] [employer] Wanda 03/15/2025 [id number] / / [id number] [employer] Wanda Axios 10 X 10 Stent Delivery System [id number] - [id number] Implanted:Qty: 1 on 06/20/2023 by Dharmesh Ruby MD at [facility] Explanted:Qty: 1 on 07/11/2023 by Edu Lam MD at [facility] Stent N/A: Duodenum [place] [employer] Wanda 01/23/2025 [id number] / / [id number] [place] [employer] Wanda 10fr 5cm Biliary Double Pigtail Stent [id number] - [id number] Implanted:Qty: 1 on 06/20/2023 by Dharmesh Ruby MD at [facility] Explanted:Qty: 1 on 07/11/2023 by Astrid Isbell MD at [facility] Stent N/A: Duodenum [place] [employer] Wanda 04/24/2025 [id number] / / [id number] Description:Implanted throug h axios Procedures Procedure Name Priority Date/Time Associated Diagnosis Comments CT ABDOMEN PELVIS W CONTRAST Schedule Routine, Read Routine (OP Routine) 06/29/2023 3:21 PM CIRCULAR SAWYER HELPER Pancreatic duct leak PSA, TOTAL AND FREE Routine 05/16/2023 3 :40 AM CDT COLONOSCOPY 04/05/2023 11:31 AM CDT from Last 3 Months or Most Recently Relevant to Health Maintenance Results * CT Abd/Pelvis with contrast (06/29/2023 3:21 PM CIRCULAR SAWYER HELPER) Anatomical Region Laterality Modality Body N/A Computed Tomogra phy 06/29/2023 3:49 PM CIRCULAR SAWYER HELPER Impressions 06/29/2023 3:49 PM CIRCULAR SAWYER HELPER 1. Interval cyst gastrostomy with successful decompression of peripancreatic walled off fat necrosis. 2. Interval placement of stent in the common duct without ductal dilatation. Electronically signed by: Gato Chang MD Narrative 06/29/2023 3:49 PM CIRCULAR SAWYER HELPER EXAMINATION: Computed tomography of the abdomen and [...] (05/16/2023 3:40 AM CDT) PSA-free 0.2 ng/mL [facility] PSA-Total 0.78 <=4.5 ng/mL [facility] PSA-Free/Total Ratio See Footnote [facility] Comment: Ratio not calculated because clinical [...] absence of malignant disease. Test Performed by: [facility][Note 3] [address] [place] [address] Market Research Executive: Gio Melchor M.D. Ph.D.; CLIA# [id number] Blood 05/16/2023 3:40 AM CDT 05/16/2023 3:48 AM CDT us Ling Jimenez CRIME SCENE INVESTIGATOR LAB BLOOD ORDERABLES Final Res ult [facility] Department [place] [address] * COLONOSCOPY (04/05/2023 11:31 AM CDT) Anatomical Region Laterality Modality Other Narrative Procedure Note Astrid Isbell MD - 04/05/2023 11:31 AM CDT ENDOSCOPY LAB Patient Name: Tommy Zhao Procedure Date: 04/05/2023 11:31 AM Admit Type: Outpatient Room: [facility] Date of : 1955 Instrument Name: [id number] [...] the bowel preparation was evaluatedusing the BBPS ([place] Bowel Preparation Scale) withscores of: Right Colon [...] following this procedure please call my office [phone]). After hours and eveningsplease call [phone] and speak to the GI fellow oncall fellow. Please tell the fellow that Dr. Isbell did your procedure and that you were instructed to have the fellow call me or the physician covering for meto discuss the management of your condition. If youhave an urgent problem, [facility] and have the ER doctor call [...] Most Recently Relevant to Health Maintenance Insurance [facility] MEDICARE ADVANTAGE [facility] MEDICARE ADVANTAGE Advance Directives For more information, please contact: [phone] * Full Code (Latest Code Status on [...] 8:59 AM 04/26/2023 3:54 PM Care Teams Manager Port Relationship Specialty Start Date End Date Lilliam Jolley NP [address] [place] [address] PCP - General Family Medicine 02/11/25 Astrid Isbell MD [address] [facility] [place] [address] Referring Physician Gastroenterology 06/22/23 Bob Blake MD [address] [facility] [place] [address] Medical Oncologist Hematology and Oncology 08/08/23
[2025-06-04 08:49] LABS: Estimated Glomerular Filt Rate > 60
== END 2025-06-04 08:22 | disposition home or self-care (01) ==
PROVIDERS: PCP Nurse Practitioner Family; Visit Provider Internal Medicine Hematology & Oncology
DX: C25.2 Malignant neoplasm of tail of pancreas (principal)
CPT/HCPCS: 74177; Q9967